=== PATIENT | female | born 1980 | race African-American/Black ===

== ENCOUNTER 2016-12-12 16:27 | Emergency (ER) | payer MEDICAID ==
[2014-05-24 12:15] VITALS: BMI 18.8
[~2016-12-12 16:27] MED LIST: ACETAMINOPHEN500 M1 PO; LANTUS SOL100 UNIT/1 SC; MYCELEX TROCHE10 MG PO; NOVOLOG100 U/M1 SC; NYSTATIN ORAL SU5 ML PO; PRINIVIL20 MG PO; REGLAN10 MG PO
== END 2016-12-12 17:58 | disposition home or self-care (01) ==
LOC: D.ER 16:27
DX: K04.7 Periapical abscess without sinus (principal); K02.9 Dental caries, unspecified; E87.5 Hyperkalemia; E83.39 Other disorders of phosphorus metabolism; E13.10 Other specified diabetes mellitus with ketoacidosis without coma; Z79.4 Long term (current) use of insulin; F17.200 Nicotine dependence, unspecified, uncomplicated

== ENCOUNTER 2017-01-20 13:33 | Emergency (ER) | payer MEDICAID ==
[2014-05-24 12:15] VITALS: BMI 18.8
== END 2017-01-20 15:25 | disposition home or self-care (01) ==
LOC: D.ER 13:33
DX: S63.501A Unspecified sprain of right wrist, initial encounter (principal); W19.XXXA Unspecified fall, initial encounter; Y93.89 Activity, other specified; Y92.89 Other specified places as the place of occurrence of the external cause; S63.502A Unspecified sprain of left wrist, initial encounter; S80.02XA Contusion of left knee, initial encounter; S80.01XA Contusion of right knee, initial encounter

== ENCOUNTER 2017-02-21 15:25 | Emergency (ER) | payer MEDICAID ==
[2014-05-24 12:15] VITALS: BMI 18.8
== END 2017-02-21 17:40 | disposition home or self-care (01) ==
LOC: D.ER 15:25
DX: L03.115 Cellulitis of right lower limb (principal); M25.561 Pain in right knee; F17.200 Nicotine dependence, unspecified, uncomplicated

== ENCOUNTER 2017-07-15 17:12 | Emergency (ER) | payer MEDICAID ==
[2014-05-24 12:15] VITALS: BMI 18.8
== END 2017-07-15 17:59 | disposition home or self-care (01) ==
LOC: D.ER 17:12
DX: L02.416 Cutaneous abscess of left lower limb (principal); E11.9 Type 2 diabetes mellitus without complications; F17.200 Nicotine dependence, unspecified, uncomplicated

== ENCOUNTER 2017-07-18 13:40 | Emergency (ER) | payer MEDICAID ==
[2014-05-24 12:15] VITALS: BMI 18.8
== END 2017-07-18 14:54 | disposition home or self-care (01) ==
LOC: D.ER 13:40
DX: L03.116 Cellulitis of left lower limb (principal)

== ENCOUNTER 2017-07-25 13:58 | Emergency (ER) | payer MEDICAID ==
[2014-05-24 12:15] VITALS: BMI 18.8
== END 2017-07-25 16:21 | disposition home or self-care (01) ==
LOC: D.ER 13:58
DX: L03.116 Cellulitis of left lower limb (principal)

== ENCOUNTER 2017-07-29 14:48 | Inpatient (IN) | payer MEDICAID ==
[~2017-07-29] VITALS: Ht 162.6 cm; Wt 67.1 kg
--- NOTE | ~2017-07-29 | HP ---
PATIENT: JAMES STAPLETON MEDICAL RECORD: [id number] ACCOUNT: [id number] LOCATION:[facility] ClaribelCV07 : 82 ADMISSION DATE: 07/29/17 HISTORY AND PHYSICAL EXAMINATION REASON FOR ADMISSION: Nausea and vomiting. HISTORY OF PRESENT ILLNESS: The patient is a 37-year-old black female who states that she has been an insulin-dependent diabetic since her teens. She developed some nausea and vomiting four days prior to admission. They had recently stopped her insulin as she had low blood sugar. She had been in the ER on several occasions over the last month because of an infection on the left anterior mckenzie and states she has been on antibiotics for that. She had intractable vomiting, so she came to the ED. She was found to be in DKA. A pH of 7.3, blood sugar in excess of 500. She is now being admitted to medicine unassigned call for ICU admission to control her diabetes and acidosis. PAST MEDICAL HISTORY: She was hospitalized in 2009, two episodes of DKA due to running out of her insulin, history of gastroesophageal reflux disease and delayed gastric emptying, gastroparesis, essential hypertension, several admissions for diabetic ketoacidosis, and blinding of right eye and poor vision in the left eye due to diabetic retinopathy. PAST SURGICAL HISTORY: She states she has had I&D of an abscess on buttocks in the past. ALLERGIES: None mentioned. SOCIAL HISTORY: She is not . She has no children. She moved to [place] several years ago. 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 CURRENT MEDICATIONS: Lantus 15 units subq at bedtime, Nexium 40 mg daily, Reglan 10 mg before meals, and lisinopril 20 mg p.o. daily. SOCIAL HISTORY: She is nonsmoker and nondrinker. Apparently has used cocaine in the remote past. FAMILY HISTORY: Positive for diabetes, colon cancer, DC, and stroke in primary relatives. REVIEW OF SYSTEMS: GENERAL: She has been fatigued without fever with general malaise for the last four days. HEENT: Chronic blindness. No recent otalgia, sore throat. RESPIRATORY: No SOB. No cough. CARDIAC: No chest pain, palpitations, or edema. GASTROINTESTINAL: She has had nausea with vomiting, but no diarrhea for the last 4 days. Admits to moderate abdominal pain. INTEGUMENT: No rash or itching. PSYCHIATRY: Denies depressed mood. PHYSICAL EXAMINATION: GENERAL: Alert black female who is in moderate distress due to nausea. VITAL SIGNS: Temperature is 98.7 Fahrenheit orally, pulse 110 and regular, respirations 16, blood pressure 145/95, O2 sat 100% on room air, weight was 160 HISTORY AND PHYSICAL [id number] JAMES STAPLETON pounds or 72.6 kilos, BMI 25.1. The patient is alert, mildly ill appearing. HEENT: Normocephalic. Eyes are clear. Mucous membranes are dry. NECK: No bruits or masses. CHEST: Clear without wheeze or rales. HEART: Tachycardic without murmur. ABDOMEN: Mildly obese, soft, nontender throughout. Bowel sounds are active. EXTREMITIES: No cyanosis, clubbing or edema. Left anterior mckenzie cellulolytic area approximately 6 inches x 2 inches in diameter covered with bandage. NEUROLOGIC: Oriented to person, place, and time. Cranial nerves are grossly intact. Gait was not tested. No localizing motor deficits were appreciated. PSYCHIATRIC: Denies depress mood. LABORATORY DATA: Blood sugar was over 500 and serum ketones were positive. Potassium is 4.2. Blood gas with a pH 7.31. ASSESSMENT: 1. Diabetic ketoacidosis due to noncompliance. 2. Gastroenteritis. 3. Left lower extremity cellulitis. 4. Diabetic retinopathy. 5. Essential hypertension. PLAN: Placed in the ICU on IV insulin drip, normal saline fluid challenge. Wound culture and surgical consult for venous access completed and evaluation of left lower extremity wound. Empiric Rocephin. Further workup pending clinical course. TRANSINT:[id number] Voice Confirmation ID: [id number] DOCUMENT ID: [id number] TRAVIS PEREYRA MD at 1320 CC: [id number] DICTATION DATE: 07/29/172105 INSPECTOR PLATING: 07/29/17 2352 ADM IN [place] [address] [place] [address]
[2017-07-29 15:45] LABS: BASOPHILS 0.2 % (0-2); EOSINOPHILS 0 % (0-7); HEMATOCRIT 38.9 % (36.0-48.0); HEMOGLOBIN 12.6 g/dL (12-16); IMMATURE GRANULOCYTES 0.3 % (0-5); LYMPHOCYTES 18.9 % (15-50); MCH 26.9 pg (26.0-34.0); MCHC 32.4 g/dL (31.0-37.0); MCV 83.1 fL (80.0-100.0); MEAN PLATELET VOLUME 11.9 fL (7.4-10.4); MONOCYTES 3.4 % (2-11); NEUTROPHILS 77.2 % (40-80); RBC 4.68 10x6/uL (4.00-5.40); WBC 12.2 10x3/uL (4.8-10.8)
[2017-07-29 15:55] LABS: INR 1.09 (0.85-1.17); PROTIME 13.7 SECONDS (11.6-15.0)
[2017-07-29 15:56] LABS: PLATELET COUNT 375 10x3/uL (130-400)
[2017-07-29 16:03] LABS: KETONE - SERUM MODERATE mg/dL (NEGATIVE)
[2017-07-29 16:32] LABS: HCG URINE NEGATIVE (NEGATIVE)
[2017-07-29 16:34] LABS: APPEARANCE HAZY (CLEAR); BACTERIA MODERATE /hpf (NONE SEEN); BILIRUBIN NEGATIVE (NEGATIVE); COLOR STRAW (YELLOW); GLUCOSE 1000 mg/dL (NEGATIVE); KETONE LARGE mg/dL (NEGATIVE); NITRITE NEGATIVE (NEGATIVE); PROTEIN NEGATIVE (NEGATIVE); RED CELLS - URINE 0-5 /hpf (0-5); SPECIFIC GRAVITY 1.015 (1.005-1.020); UROBILINOGEN NORMAL (NORMAL)
[2017-07-29 16:38] LABS: ALBUMIN 3.8 g/dL (3.4-5.0); ALKALINE PHOSPHATASE 97 U/L (46-116); ALT (SGPT) 20 U/L (10-68); AMYLASE - SERUM 108 U/L (25-115); BILIRUBIN - TOTAL 0.78 mg/dL (0.2-1.3); CALCIUM 9.7 mg/dL (8.5-10.1); CARBON DIOXIDE 14.2 mmol/L (21.0-32.0); CHLORIDE - SERUM 91 mmol/L (98-107); CREATINE KINASE 143 UL (21-215); CREATININE - SERUM 1.8 mg/dL (0.6-1.3); LIPASE 124 U/L (73-393); POTASSIUM - SERUM 5.5 mmol/L (3.5-5.1); PROTEIN - SERUM 8.2 g/dL (6.4-8.2); SODIUM 134 mmol/L (136-145); UREA NITROGEN 45 mg/dL (7-18); eGFR NON AFRICAN AMERICAN 34 mL/min (90-120)
[2017-07-29 16:40] LABS: UDS - AMPHET NEGATIVE QUAL (NEGATIVE); UDS - BARB NEGATIVE QUAL (NEGATIVE); UDS - BENZO NEGATIVE QUAL (NEGATIVE); UDS - COCAINE NEGATIVE QUAL (NEGATIVE); UDS - OPIATE NEGATIVE QUAL (NEGATIVE); UDS - PCP NEGATIVE QUAL (NEGATIVE); UDS - THC NEGATIVE QUAL (NEGATIVE)
[2017-07-29 16:45] LABS: CALC OSMOLALITY 311 mosm/kg (275-300); TROPONIN-I < 0.017 ng/mL (0.000-0.060)
[2017-07-29 16:47] LABS: GLUCOSE 674 mg/dL (74-106)
[2017-07-29 20:27] LABS: ANION GAP 29.5 mmol/L (8-16); CARBON DIOXIDE 15.7 mmol/L (21.0-32.0); CREATININE - SERUM 1.9 mg/dL (0.6-1.3); MAGNESIUM - SERUM 2.8 mg/dL (1.8-2.4)
[2017-07-29 20:28] LABS: POTASSIUM - SERUM 4.2 mmol/L (3.5-5.1)
[2017-07-29 21:25] VITALS: BP 89/57; BMI 25.5
[2017-07-29] MEDS ORDERED: HYDROCODON-ACE1 EAC7 PO (21:45)
[2017-07-29] MEDS ORDERED: NEURONTIN 300300 MG (21:46)
[2017-07-29 22:00] VITALS: BP 106/87
[2017-07-29 23:00] VITALS: BP 118/75
[2017-07-30] VITALS (24 sets, daily range): BP systolic 82–167; BP diastolic 49–92; Ht 162.6 cm; Wt 67.1 kg
[2017-07-30 00:40] LABS: ANION GAP 14.2 mmol/L (8-16); CALCIUM 9.2 mg/dL (8.5-10.1); CREATININE - SERUM 1.8 mg/dL (0.6-1.3); MAGNESIUM - SERUM 2.8 mg/dL (1.8-2.4); POTASSIUM - SERUM 4.3 mmol/L (3.5-5.1)
[2017-07-30 00:43] LABS: CARBON DIOXIDE 26.1 mmol/L (21.0-32.0)
[2017-07-30 05:09] LABS: ANION GAP 16.2 mmol/L (8-16); CALCIUM 9.1 mg/dL (8.5-10.1); CREATININE - SERUM 1.5 mg/dL (0.6-1.3); MAGNESIUM - SERUM 2.7 mg/dL (1.8-2.4); POTASSIUM - SERUM 4.2 mmol/L (3.5-5.1)
[2017-07-30 08:15] LABS: BASOPHILS 0.3 % (0-2); EOSINOPHILS 0.5 % (0-7); HEMATOCRIT 37.1 % (36.0-48.0); HEMOGLOBIN 12.3 g/dL (12-16); IMMATURE GRANULOCYTES 0.1 % (0-5); LYMPHOCYTES 34.5 % (15-50); MCH 26.9 pg (26.0-34.0); MCHC 33.2 g/dL (31.0-37.0); MCV 81.2 fL (80.0-100.0); MEAN PLATELET VOLUME 10.9 fL (7.4-10.4); MONOCYTES 7.5 % (2-11); NEUTROPHILS 57.1 % (40-80); PLATELET COUNT 372 10x3/uL (130-400); RBC 4.57 10x6/uL (4.00-5.40); RDW 13.3 % (11.5-14.5); WBC 8.8 10x3/uL (4.8-10.8)
[2017-07-30 08:42] LABS: CALC OSMOLALITY 291 mosm/kg (275-300); CALCIUM 9.3 mg/dL (8.5-10.1); CARBON DIOXIDE 23.7 mmol/L (21.0-32.0); CHLORIDE - SERUM 106 mmol/L (98-107); CREATININE - SERUM 1.5 mg/dL (0.6-1.3); GLUCOSE 142 mg/dL (74-106); POTASSIUM - SERUM 4.1 mmol/L (3.5-5.1); SODIUM 142 mmol/L (136-145); UREA NITROGEN 33 mg/dL (7-18); eGFR NON AFRICAN AMERICAN 42 mL/min (90-120)
[2017-07-30 08:59] LABS: KETONE - SERUM SMALL mg/dL (NEGATIVE)
[2017-07-31] VITALS (11 sets, daily range): BP systolic 92–118; BP diastolic 53–79
[2017-07-31 05:21] LABS: ANION GAP 12.4 mmol/L (8-16); CALCIUM 7.9 mg/dL (8.5-10.1); CARBON DIOXIDE 26.2 mmol/L (21.0-32.0); POTASSIUM - SERUM 3.6 mmol/L (3.5-5.1)
[2017-07-31] MEDS ORDERED: BACTRIM DS TABL1 TAB PO (09:08)
== END 2017-07-31 13:00 | disposition home or self-care (01) | DRG 638 ==
LOC: D.ER 14:48 → D.CVICU 18:13 → D.ICU 18:13 → D.CVICU 18:29
PROVIDERS: Emergency Medicine; Family Medicine
PROC: 05HB33Z Insertion of Infusion Device into Right Basilic Vein, Percutaneous Approach (ICD-10-PCS; principal; 2017-07-30)
PROC: B54MZZA Ultrasonography of Right Upper Extremity Veins, Guidance (ICD-10-PCS; 2017-07-30)
DX: E10.10 Type 1 diabetes mellitus with ketoacidosis without coma (principal); L03.116 Cellulitis of left lower limb; E11.43 Type 2 diabetes mellitus with diabetic autonomic (poly)neuropathy; E11.319 Type 2 diabetes mellitus with unspecified diabetic retinopathy without macular edema; K31.84 Gastroparesis; Z79.4 Long term (current) use of insulin; K52.9 Noninfective gastroenteritis and colitis, unspecified; I10 Essential (primary) hypertension; Z91.14 Patient's other noncompliance with medication regimen

== ENCOUNTER 2017-11-01 11:11 | Emergency (ER) | payer MEDICAID ==
[2017-07-30 11:57] VITALS: BMI 25.4
[~2017-11-01 11:11] MED LIST changes: +BACTRIM DS TABL1 TAB PO; +HYDROCODON-ACE1 EAC7 PO; +NEURONTIN 300300 MG
== END 2017-11-01 12:48 | disposition home or self-care (01) ==
LOC: D.ER 11:11
DX: M25.512 Pain in left shoulder (principal); T14.8XXA Other injury of unspecified body region, initial encounter; W19.XXXA Unspecified fall, initial encounter; Y93.89 Activity, other specified; Y92.019 Unspecified place in single-family (private) house as the place of occurrence of the external cause; M54.2 Cervicalgia; M54.5 Low back pain

== ENCOUNTER 2017-11-09 14:05 | Emergency (ER) | payer MEDICAID ==
[2017-07-30 11:57] VITALS: BMI 25.4
[2017-11-09 15:08] LABS: BASOPHILS 0.3 % (0-2); EOSINOPHILS 2.7 % (0-7); IMMATURE GRANULOCYTES 0.2 % (0-5); LYMPHOCYTES 45.7 % (15-50); MCH 25.8 pg (26.0-34.0); MCHC 32.4 g/dL (31.0-37.0); MCV 79.8 fL (80.0-100.0); MEAN PLATELET VOLUME 10.7 fL (7.4-10.4); MONOCYTES 7.8 % (2-11); NEUTROPHILS 43.3 % (40-80); RBC 4.26 10x6/uL (4.00-5.40); RDW 14.7 % (11.5-14.5); WBC 5.9 10x3/uL (4.8-10.8)
[2017-11-09 15:10] LABS: PLATELET COUNT 285 10x3/uL (130-400)
[2017-11-09 15:46] LABS: ALBUMIN 3.6 g/dL (3.4-5.0); ANION GAP 14.2 mmol/L (8-16); BILIRUBIN - TOTAL 0.24 mg/dL (0.2-1.3); CALCIUM 9.1 mg/dL (8.5-10.1); CARBON DIOXIDE 27.2 mmol/L (21.0-32.0); POTASSIUM - SERUM 4.4 mmol/L (3.5-5.1); PROTEIN - SERUM 7.8 g/dL (6.4-8.2)
[2017-11-09 15:49] LABS: APPEARANCE HAZY (CLEAR); BILIRUBIN NEGATIVE (NEGATIVE); COLOR YELLOW (YELLOW); GLUCOSE 1000 mg/dL (NEGATIVE); KETONE NEGATIVE (NEGATIVE); NITRITE NEGATIVE (NEGATIVE); PROTEIN TRACE mg/dL (NEGATIVE); SPECIFIC GRAVITY 1.015 (1.005-1.020); UROBILINOGEN NORMAL (NORMAL)
[2017-11-09 15:50] LABS: RED CELLS - URINE OCC /hpf (0-5); WHITE CELLS - URINE 0-5 /hpf (0-5)
[2017-11-09 15:51] LABS: BACTERIA MANY /hpf (NONE SEEN)
[2017-11-09 15:52] LABS: HCG SERUM NEGATIVE (NEGATIVE)
== END 2017-11-09 17:00 | disposition home or self-care (01) ==
LOC: D.ER 14:05
PROVIDERS: Emergency Medicine; Physician Assistant
DX: R10.32 Left lower quadrant pain (principal); E11.9 Type 2 diabetes mellitus without complications; Z79.4 Long term (current) use of insulin; N39.0 Urinary tract infection, site not specified; F17.200 Nicotine dependence, unspecified, uncomplicated

== ENCOUNTER 2018-04-10 13:59 | Emergency (ER) | payer MEDICAID ==
[~2018-04-10] VITALS: Ht 162.6 cm; Wt 75.9 kg
[2018-04-10 14:03] VITALS: Ht 162.6 cm; Wt 75.9 kg
[2018-04-10] MEDS ORDERED: COMBIGAN OPHT DR5 ML EACH EYE (14:07)
[2018-04-10] MEDS ORDERED: NOVOLOG100 U/M1 SC (14:07)
[2018-04-10] MEDS ORDERED: ATROPINE TOPICAL (14:09)
[2018-04-10] MEDS ORDERED: BACTRIM DS TABL1 TAB PO (14:52)
[2018-04-10] MEDS ORDERED: ULTRAM50 MG PO (14:52)
[2018-04-10 15:08] VITALS: BP 146/93
== END 2018-04-10 15:09 | disposition home or self-care (01) ==
LOC: D.ER 13:59
DX: L02.415 Cutaneous abscess of right lower limb (principal); E11.9 Type 2 diabetes mellitus without complications; I10 Essential (primary) hypertension

== ENCOUNTER 2018-07-03 14:03 | Emergency (ER) | payer MEDICAID ==
[~2018-07-03] VITALS: Ht 162.6 cm; Wt 74.1 kg
[~2018-07-03 14:03] MED LIST changes: +ATROPINE TOPICAL; +COMBIGAN OPHT DR5 ML EACH EYE; +ULTRAM50 MG PO
[2018-07-03 14:06] VITALS: Ht 162.6 cm; Wt 74.1 kg
[2018-07-03] MEDS ORDERED: TORADOL10 MG PO (17:33)
[2018-07-03 18:30] VITALS: BP 169/86
== END 2018-07-03 18:30 | disposition home or self-care (01) ==
LOC: D.ER 14:03
DX: S40.012A Contusion of left shoulder, initial encounter (principal); S60.212A Contusion of left wrist, initial encounter; X58.XXXA Exposure to other specified factors, initial encounter; Y93.9 Activity, unspecified; Y92.019 Unspecified place in single-family (private) house as the place of occurrence of the external cause; E11.9 Type 2 diabetes mellitus without complications; I10 Essential (primary) hypertension; F17.200 Nicotine dependence, unspecified, uncomplicated

== ENCOUNTER 2018-08-16 13:22 | Emergency (ER) | payer MEDICAID ==
[~2018-08-16] VITALS: Ht 162.6 cm; Wt 70.5 kg
[~2018-08-16 13:22] MED LIST changes: +TORADOL10 MG PO
[2018-08-16 13:24] VITALS: Ht 162.6 cm; Wt 70.5 kg
[2018-08-16 15:26] LABS: BASOPHILS 0.1 % (0-2); EOSINOPHILS 0 % (0-7); HEMATOCRIT 36.5 % (36.0-48.0); HEMOGLOBIN 12.6 g/dL (12-16); IMMATURE GRANULOCYTES 0.3 % (0-5); LYMPHOCYTES 14.3 % (15-50); MCH 26.4 pg (26.0-34.0); MCHC 34.5 g/dL (31.0-37.0); MCV 76.5 fL (80.0-100.0); MONOCYTES 5.7 % (2-11); NEUTROPHILS 79.6 % (40-80); RBC 4.77 10x6/uL (4.00-5.40); RDW 14.3 % (11.5-14.5); WBC 14.5 10x3/uL (4.8-10.8)
[2018-08-16 15:27] LABS: PLATELET COUNT 196 10x3/uL (130-400)
[2018-08-16 15:42] LABS: ALKALINE PHOSPHATASE 118 U/L (46-116); ALT (SGPT) 20 U/L (10-68); BILIRUBIN - TOTAL 0.86 mg/dL (0.2-1.3); CALC OSMOLALITY 304 mosm/kg (275-300); CALCIUM 9.8 mg/dL (8.5-10.1); CARBON DIOXIDE 16.9 mmol/L (21.0-32.0); CHLORIDE - SERUM 98 mmol/L (98-107); CREATININE - SERUM 1.9 mg/dL (0.6-1.3); MAGNESIUM - SERUM 2.9 mg/dL (1.8-2.4); POTASSIUM - SERUM 4.3 mmol/L (3.5-5.1); PROTEIN - SERUM 8.6 g/dL (6.4-8.2); SODIUM 137 mmol/L (136-145); UREA NITROGEN 43 mg/dL (7-18); eGFR NON AFRICAN AMERICAN 31 mL/min (90-120)
[2018-08-16 15:45] LABS: GLUCOSE 452 mg/dL (74-106)
[2018-08-16 15:50] LABS: KETONE - SERUM MODERATE mg/dL (NEGATIVE)
[2018-08-16] MEDS ORDERED: ZOFRAN ODT4 MG/UDTAB PO (15:56)
[2018-08-16 16:29] VITALS: BP 137/73
[2018-08-16 17:03] LABS: APPEARANCE CLEAR (CLEAR); COLOR YELLOW (YELLOW); GLUCOSE 1000 mg/dL (NEGATIVE); KETONE MODERATE mg/dL (NEGATIVE); NITRITE NEGATIVE (NEGATIVE); PROTEIN TRACE mg/dL (NEGATIVE); SPECIFIC GRAVITY 1.015 (1.005-1.020)
[2018-08-16 17:12] LABS: BILIRUBIN NEGATIVE (NEGATIVE); UROBILINOGEN NORMAL (NORMAL)
[2018-08-16 17:13] LABS: RED CELLS - URINE 0-5 /hpf (0-5); WHITE CELLS - URINE OCC /hpf (0-5)
[2018-08-16 17:22] LABS: BACTERIA FEW /hpf (NONE SEEN); EPITHELIAL CELLS 0-5 /hpf (0-5)
== END 2018-08-16 16:20 | disposition home or self-care (01) ==
LOC: D.ER 13:22
PROVIDERS: Emergency Medicine
DX: E11.65 Type 2 diabetes mellitus with hyperglycemia (principal); Z79.4 Long term (current) use of insulin

== ENCOUNTER 2018-12-27 19:27 | Emergency (ER) | payer MEDICAID ==
[~2018-12-27] VITALS: Ht 162.6 cm; Wt 79.8 kg
[~2018-12-27 19:27] MED LIST changes: +ZOFRAN ODT4 MG/UDTAB PO
[2018-12-27 19:28] VITALS: Ht 162.6 cm; Wt 79.8 kg
[2018-12-27 20:33] LABS: BASOPHILS 0.2 % (0-2); EOSINOPHILS 1.2 % (0-7); HEMATOCRIT 34.7 % (36.0-48.0); HEMOGLOBIN 11.6 g/dL (12-16); IMMATURE GRANULOCYTES 0.2 % (0-5); MCHC 33.4 g/dL (31.0-37.0); MCV 77.8 fL (80.0-100.0); MEAN PLATELET VOLUME 10.2 fL (7.4-10.4); MONOCYTES 6.3 % (2-11); NEUTROPHILS 64.1 % (40-80); RBC 4.46 10x6/uL (4.00-5.40); RDW 14.4 % (11.5-14.5); WBC 8.3 10x3/uL (4.8-10.8)
[2018-12-27 20:34] LABS: PLATELET COUNT 280 10x3/uL (130-400)
[2018-12-27 20:49] LABS: ALBUMIN 3.5 g/dL (3.4-5.0); ANION GAP 13.6 mmol/L (8-16); BILIRUBIN - TOTAL 0.27 mg/dL (0.2-1.3); CALCIUM 9.2 mg/dL (8.5-10.1); CARBON DIOXIDE 25.7 mmol/L (21.0-32.0); POTASSIUM - SERUM 5.3 mmol/L (3.5-5.1); PROTEIN - SERUM 7.3 g/dL (6.4-8.2)
[2018-12-27] MEDS ORDERED: DIAMOX250 MG PO (21:51)
[2018-12-27] MEDS ORDERED: HYDROCODON-ACE1 EAC7 PO (21:53)
[2018-12-27 22:21] VITALS: BP 149/89
== END 2018-12-27 22:21 | disposition home or self-care (01) ==
LOC: D.ER 19:27
PROVIDERS: Family Medicine
DX: H40.9 Unspecified glaucoma (principal)

== ENCOUNTER 2019-02-21 18:43 | Inpatient (IN) | payer MEDICAID ==
[~2019-02-21] VITALS: Ht 162.6 cm; Wt 78.0 kg
[~2019-02-21 18:43] MED LIST changes: +DIAMOX250 MG PO; -NEURONTIN 300300 MG; +NEURONTIN 300300 MG PO
--- NOTE | 2019-02-21 19:26 | NUR ---
report given to sumanth matamoros using sbar
[2019-02-21 21:46] LABS: BASOPHILS 0 % (0-2); EOSINOPHILS 0 % (0-7); HEMOGLOBIN 11.3 g/dL (12-16); IMMATURE GRANULOCYTES 0.2 % (0-5); LYMPHOCYTES 7.1 % (15-50); MCH 26.4 pg (26.0-34.0); MCHC 33.2 g/dL (31.0-37.0); MCV 79.4 fL (80.0-100.0); MEAN PLATELET VOLUME 11.3 fL (7.4-10.4); MONOCYTES 3.1 % (2-11); NEUTROPHILS 89.6 % (40-80); PLATELET COUNT 326 10x3/uL (130-400); RBC 4.28 10x6/uL (4.00-5.40); RDW 15.5 % (11.5-14.5); WBC 17.7 10x3/uL (4.8-10.8)
[2019-02-21 22:02] LABS: KETONE - SERUM MODERATE mg/dL (NEGATIVE)
[2019-02-21 22:08] LABS: ALBUMIN 3.9 g/dL (3.4-5.0); ALKALINE PHOSPHATASE 102 U/L (46-116); ALT (SGPT) 11 U/L (10-68); BILIRUBIN - TOTAL 0.57 mg/dL (0.2-1.3); CALC OSMOLALITY 311 mosm/kg (275-300); CALCIUM 9.1 mg/dL (8.5-10.1); CARBON DIOXIDE 20.3 mmol/L (21.0-32.0); CHLORIDE - SERUM 94 mmol/L (98-107); CREATININE - SERUM 1.8 mg/dL (0.6-1.3); MAGNESIUM - SERUM 2.4 mg/dL (1.8-2.4); PHOSPHOROUS 5.3 mg/dL (2.5-4.9); POTASSIUM - SERUM 5.5 mmol/L (3.5-5.1); PROTEIN - SERUM 8.2 g/dL (6.4-8.2); SODIUM 134 mmol/L (136-145); UREA NITROGEN 44 mg/dL (7-18); eGFR NON AFRICAN AMERICAN 33 mL/min (90-120)
[2019-02-21 22:12] LABS: GLUCOSE 698 mg/dL (74-106)
[2019-02-21 23:01] LABS: HCG SERUM NEGATIVE (NEGATIVE)
[2019-02-21 23:02] LABS: APPEARANCE CLEAR (CLEAR); COLOR YELLOW (YELLOW); GLUCOSE 1000 mg/dL (NEGATIVE); KETONE MODERATE mg/dL (NEGATIVE); NITRITE NEGATIVE (NEGATIVE); PROTEIN NEGATIVE (NEGATIVE)
[2019-02-21 23:03] LABS: BILIRUBIN NEGATIVE (NEGATIVE); UROBILINOGEN NORMAL (NORMAL)
[2019-02-21 23:30] VITALS: BP 165/95
[2019-02-21 23:35] VITALS: BP 165/95
--- NOTE | 2019-02-21 23:35 | NUR ---
2321- TO CT ON STRETCHER.
--- NOTE | 2019-02-21 23:35 | NUR ---
PT RECIEVED VIA STRETCHER, ASSESSMENT COMPLETED, R CVL INTACT WITH INSULIN GTT INFUSING, FLORES TO BSD WITH CLEAR YELLOW URINE
[2019-02-22] VITALS (30 sets, daily range): BP systolic 102–166; BP diastolic 56–98; Ht 162.6 cm; Wt 78.0 kg
[2019-02-22 00:08] LABS: ANION GAP 28.9 mmol/L (8-16); CALCIUM 9.1 mg/dL (8.5-10.1); CARBON DIOXIDE 17.7 mmol/L (21.0-32.0); CREATININE - SERUM 1.9 mg/dL (0.6-1.3); MAGNESIUM - SERUM 2.3 mg/dL (1.8-2.4); POTASSIUM - SERUM 5.6 mmol/L (3.5-5.1)
--- NOTE | 2019-02-22 01:30 | NUR ---
PT AROUSES EASILY, FOLLOWS COMMANDS,NO DISTRESS
--- NOTE | 2019-02-22 03:30 | NUR ---
PT SLEEPING, FSBS 155, ADJUSTED INSULIN GTT PER PROTOCOL
[2019-02-22 05:21] LABS: CALCIUM 8.4 mg/dL (8.5-10.1); MAGNESIUM - SERUM 2.2 mg/dL (1.8-2.4)
[2019-02-22 05:35] LABS: ANION GAP 12.4 mmol/L (8-16); CARBON DIOXIDE 28.4 mmol/L (21.0-32.0); CREATININE - SERUM 1.3 mg/dL (0.6-1.3); POTASSIUM - SERUM 3.8 mmol/L (3.5-5.1)
--- NOTE | 2019-02-22 06:28 | NUR ---
PT SLEEPING WITH NO DISTRESS, INSULIN GTT INFUSING VIA RIGHT CVL
--- NOTE | 2019-02-22 07:00 | NUR ---
BEDSIDE SHIFT REPORT AND SHIFT ASSESSMENT COMPLETE. R SUBCLAVIAN CVL, DRESSING CDI. FLORES CATHETER PUTTING OUT YELLOW, CLEAR URINE. PT STATES PAIN 8/10, WILL ADMINISTER PAIN MEDS PER MAR. VSS. CALL LIGHT IN REACH.
--- NOTE | 2019-02-22 09:00 | NUR ---
MEDS GIVEN PER MAR. VSS, NO NEEDS AT THIS TIME. WILL CONTINUE TO MONITOR.
--- NOTE | 2019-02-22 11:39 | NUR ---
Pt transported to CVICU room CV06. On 2ml insulin drip and D5+20KCL AT 100ML/HR. On room air. vss. will continue to monitor.
[2019-02-22 11:56] LABS: ANION GAP 10.2 mmol/L (8-16); CALCIUM 8.4 mg/dL (8.5-10.1); CARBON DIOXIDE 29.8 mmol/L (21.0-32.0); CREATININE - SERUM 1.1 mg/dL (0.6-1.3); MAGNESIUM - SERUM 2.3 mg/dL (1.8-2.4)
--- NOTE | 2019-02-22 13:23 | NUR ---
SPOKE WITH DR. INGRAM REGARDING ANION GAP BEING CLOSED. ORDERED TO DISCONTINUE INSULIN DRIP. ORDERED HUMALOG INTERMEDIATE SCALE ACHS, DISCONTINUED D5 1/2 NS WITH 20KCL. ORDERED 1/2 AT 125ML/HR. RESTARTED LANTUS PER DR. INGRAM.
--- NOTE | 2019-02-22 17:04 | NUR ---
CHG BATH GIVEN AT THIS TIME. PT TOLERATED WELL. R-SUBCLAVIAN CVL CHANGED PER PROTOCOL. STERILE TECHNIQUE USED. COMPLETE LINEN CHANGE PROVIDED. FLORES CARE PROVIDED. PT RESTING COMFORTABLY IN BED. PT'S MOTHER AT BEDSIDE. NO FURTHER NEEDS. WILL CONTINUE TO MONITOR.
--- NOTE | 2019-02-22 17:23 | NUR ---
Dinner tray delivered. Pt not ready to eat at this time. Tray left in room.
[2019-02-22 17:33] LABS: ANION GAP 20.7 mmol/L (8-16); CALCIUM 8.3 mg/dL (8.5-10.1); CREATININE - SERUM 1.1 mg/dL (0.6-1.3); POTASSIUM - SERUM 4.4 mmol/L (3.5-5.1)
[2019-02-22 17:35] LABS: CARBON DIOXIDE 19.7 mmol/L (21.0-32.0)
--- NOTE | 2019-02-22 17:52 | NUR ---
DR. INGRAM NOTIFIED OF INCREASE IN ANION GAP SINCE LAST LAB CHECK. ORDERED SERUM KEYTONE CHECK. IF POSITIVE, RE-START INSULIN DRIP.
--- NOTE | 2019-02-22 18:08 | NUR ---
DR. INGRAM NOTIFIED THAT THERE IS SMALL AMOUNT OF KEYTONES IN SERUM. ORDERED NOT TO START INSULIN DRIP AT THIS TIME. WILL CONTINUE TO MONITOR AND TREAT PER ORDERS.
--- NOTE | 2019-02-22 20:38 | NUR ---
PT RECEIVED WITH EYES CLOSED AND CHEST RISING. NO S/S OF DISTRESS. EASILY AWOKEN TO VERBAL STIMULI. VSS. CALL LIGHT IN REACH. PT STATES PAIN 8/10 UPON REASSESSMENT OF MORPHINE ADMINISTRATION AT 1833. PAGED PHSYCIAN ENVIRONMENTAL CONFLICT MANAGER, CALLIE SMITH RETURNED CALL. REPORTED THERE WERE NO LABS ORDERED BEYOND SHIFT CHANGE. RECEIVED ORDERS FOR BMP AT 0000, BMP, CBC, MAG, PHOS AT 0600, CHANGE BLOOD SUGAR TO Q4H, SERUM KETONE AT 0600. CALL IN ANION GAP >20. FSBS 2000 156 WITH 4UNITS GIVEN AND FIRST DOSE LANTUS 20UNITS GIVEN. MOTHER AT BEDSIDE. WILL CONTINUE TO OBSERVE.
--- NOTE | 2019-02-22 22:40 | NUR ---
MOTHER LEFT UNIT. PT RESTING. NO S/S OF DISTRESS. CALL LIGHT IN REACH. WILL CONTINUE TO OBSERVE.
[2019-02-23] VITALS (14 sets, daily range): BP systolic 98–133; BP diastolic 59–81
--- NOTE | 2019-02-23 00:44 | NUR ---
BS CHECKED 170 W/4UNITS HUMALOG. DIET LEMONLIME SODA AND APPLESAUCE GIVEN. NO OTHER NEEDS MADE KNOWN. PT HAS BEEN REASSESSED, SEE FLOW SHEET. CALL LIGHT IN REACH. WILL CONTINUE TO OBSERVE.
[2019-02-23 01:19] LABS: ANION GAP 10.4 mmol/L (8-16); CALCIUM 7.5 mg/dL (8.5-10.1); CREATININE - SERUM 0.9 mg/dL (0.6-1.3); POTASSIUM - SERUM 3.9 mmol/L (3.5-5.1)
[2019-02-23 01:27] LABS: CARBON DIOXIDE 27.5 mmol/L (21.0-32.0)
--- NOTE | 2019-02-23 03:31 | NUR ---
REASSESSMENT COMPLETED, SEE FLOW SHEET. NO NEEDS MADE KNOWN. CALL LIGHT IN REACH. WILL CONTINUE TO OBSERVE.
[2019-02-23 05:59] LABS: BASOPHILS 0.2 % (0-2); EOSINOPHILS 0.6 % (0-7); HEMATOCRIT 29.9 % (36.0-48.0); HEMOGLOBIN 9.9 g/dL (12-16); IMMATURE GRANULOCYTES 0.2 % (0-5); LYMPHOCYTES 29.6 % (15-50); MCH 25.8 pg (26.0-34.0); MCHC 33.1 g/dL (31.0-37.0); MCV 78.1 fL (80.0-100.0); MEAN PLATELET VOLUME 10.4 fL (7.4-10.4); MONOCYTES 5.7 % (2-11); NEUTROPHILS 63.7 % (40-80); PLATELET COUNT 269 10x3/uL (130-400); RBC 3.83 10x6/uL (4.00-5.40); RDW 15.5 % (11.5-14.5)
[2019-02-23 06:06] LABS: WBC 10.6 10x3/uL (4.8-10.8)
[2019-02-23 06:15] LABS: CALC OSMOLALITY 283 mosm/kg (275-300); CALCIUM 7.7 mg/dL (8.5-10.1); CARBON DIOXIDE 28.1 mmol/L (21.0-32.0); CHLORIDE - SERUM 108 mmol/L (98-107); CREATININE - SERUM 0.9 mg/dL (0.6-1.3); POTASSIUM - SERUM 3.6 mmol/L (3.5-5.1); SODIUM 142 mmol/L (136-145); UREA NITROGEN 15 mg/dL (7-18); eGFR NON AFRICAN AMERICAN 75 mL/min (90-120)
[2019-02-23 06:16] LABS: GLUCOSE 105 mg/dL (74-106); PHOSPHOROUS 2.4 mg/dL (2.5-4.9)
[2019-02-23 06:32] LABS: KETONE - SERUM NEGATIVE (NEGATIVE)
--- NOTE | 2019-02-23 09:22 | NUR ---
0700 REPORT RECIEVED, PT AAOX4, NORMAL SINUS, RIGHT SUBCLAVIAN CVL IN PLACE, DRESSING CDI, FLORES IN PLACE, BLINDESS IN BOTH EYES, MEASURED 5MM BILAT WITH SULGGISH REACTION. 0900 PT LAYING IN BED, AAOX4, WILL CONTINUE TO MONITOR
--- NOTE | 2019-02-23 12:26 | NUR ---
FSBS 67, LUNCH TRAY AND JUICE SERVED, RECHECKED FSBS 97
--- NOTE | 2019-02-23 14:22 | NUR ---
PATIENT ARRIVED TOT HE FLOOR VIA BED WITH ICU STAFF. BED IS IN LOW POSITION CALL LIGHT IS IN REACH. CALL LIGHT MODIFIED FOR PATIENTS NEEDS. RIGHT CVL DRSG INTACT. FLORES TO BEDSIDE GRAVITY. PATIENT DENIES ANY NEEDS OR PAIN AT THIS TIME. WILL CONTINUE TO MONITOR.
--- NOTE | 2019-02-23 19:26 | NUR ---
EVENING ROUNDS MADE. PT LAYING IN BED RESTING. DENIES PAIN AT THIS TIME. PT BLIND. RESTED HAND ON PT SHOULDER TO LET HER KNOW MY PRESENCE DUE TO BLINDNESS. PT STATED NO CONCERNS AT THIS TIME. INFORMED PT I WOULD BE BACK TO CHECK ON HER BS IN A FEW MINUTES. NO FURTHER CONCERNS. FALL PRECAUTIONS IN PLACE. BED LOWERED AND LOCKED. CL IN REACH. WILL CTM.
--- NOTE | 2019-02-23 19:27 | NUR ---
FAMILY AT BEDSIDE AT THIS TIME.
--- NOTE | 2019-02-23 21:13 | NUR ---
VITALS STABLE. PT C/O PAIN IN STOMACH AND BACK OF A 8/10 ON A 10 POINT PAIN SCALE. MORPHINE GIVEN TO R CVL. DRSG C/D/I. 0.45 NS @ 125, PATENT. FAMILY AT BEDSIDE. BS 93, NO TREATMENT NEEDED. WILL CTM.
[2019-02-24] VITALS: BP 139/76
[2019-02-24 04:30] VITALS: BP 150/87
--- NOTE | 2019-02-24 06:09 | NUR ---
I have reviewed this patient and I concur with the Shift Assessment completed by the Licensed Practical Nurse today this shift.
[2019-02-24 07:50] VITALS: BP 127/79
--- NOTE | 2019-02-24 10:13 | NUR ---
PATIENT IS ALERT AND ORIENTED AND STATES THAT HER PAIN HAS REDUCED AFTER BEING TREATED FOR PAIN ORDERED. ORDERS AKNOWLEDGED AND FOLLOWED REGARDING FLUIDS.
[2019-02-24 10:29] LABS: BASOPHILS 0.2 % (0-2); EOSINOPHILS 1.5 % (0-7); HEMATOCRIT 29.2 % (36.0-48.0); HEMOGLOBIN 9.7 g/dL (12-16); LYMPHOCYTES 37.8 % (15-50); MCH 26.2 pg (26.0-34.0); MCHC 33.2 g/dL (31.0-37.0); MCV 78.9 fL (80.0-100.0); MEAN PLATELET VOLUME 11.2 fL (7.4-10.4); MONOCYTES 9.5 % (2-11); PLATELET COUNT 258 10x3/uL (130-400); RDW 15.3 % (11.5-14.5); WBC 5.3 10x3/uL (4.8-10.8)
[2019-02-24 10:58] LABS: CALC OSMOLALITY 278 mosm/kg (275-300); CALCIUM 7.6 mg/dL (8.5-10.1); CARBON DIOXIDE 25.2 mmol/L (21.0-32.0); CHLORIDE - SERUM 105 mmol/L (98-107); CREATININE - SERUM 0.7 mg/dL (0.6-1.3); GLUCOSE 134 mg/dL (74-106); POTASSIUM - SERUM 3.5 mmol/L (3.5-5.1); SODIUM 139 mmol/L (136-145); eGFR NON AFRICAN AMERICAN > 90 mL/min (90-120)
[2019-02-24 10:59] LABS: UREA NITROGEN 9 mg/dL (7-18)
--- NOTE | 2019-02-24 12:06 | NUR ---
PATIENT IS RESTING QUIETLY AT THIS TIME. SHE DENIES ANY NEEDS AT THIS TIME.
[2019-02-24 12:20] VITALS: BP 132/84
--- NOTE | 2019-02-24 12:45 | NUR ---
Nutrition Follow-up: Pt reports appetite improving; ate part of breakfast this AM. No N/V. Diet: Diabetic BM: 02/21 No new wt Labs noted: Glu 134, Ca 7.6 Meds noted: Humalog, Lantus, Neutraphos, NS 0.45% @ 75 mL/hr Rec continue current diet as tolerated. RD following.
--- NOTE | 2019-02-24 13:41 | MORECARE ---
CASE MANAGEMENT DISCHARGE SUMMARY PATIENT: JAMES STAPLETON UNIT: [id number] ADM DATE: 02/21/19 AGE: 38 : 81 SEX: F ROOM/BED: D.2106 AUTHOR: PAPA HAN PHYSICIAN: REFERRING PHYSICIAN: MARIA G INGRAM MD DATE OF SERVICE: 02/24/19 Discharge Plan Patient Name: JAMES STAPLETON Facility: [facility]:[place] : 1980 Planned Disposition: Home Anticipated Discharge Date: 02/24/19 Discharge Date: Expected LOS: 3 Initial Reviewer: [email or web address] Initial Review Date: 02/24/2019 Generated: 02/24/19 2:41 pm Patient Name: JAMES STAPLETON Page 14083 at 1341 All edits/amendments must be made on the electronic document DICTATION DATE: 02/24/19 1341 MEDIA THEORIST AND AUTHOR OF: EUGENE 02/24/19 1341 RPT#: [id number] DC DATE: STATUS: ADM IN [facility] [address] [place] [address] END OF REPORT
--- NOTE | 2019-02-24 13:49 | MORECARE ---
CASE MANAGEMENT DISCHARGE SUMMARY PATIENT: JAMES STAPLETON UNIT: [id number] ADM DATE: 02/21/19 AGE: 38 : 81 SEX: F ROOM/BED: D.2106 AUTHOR: PAPA HAN PHYSICIAN: REFERRING PHYSICIAN: MARIA G INGRAM MD DATE OF SERVICE: 02/24/19 Discharge Plan Patient Name: JAMES STAPLETON Facility: [facility]:[place] : 1980 Planned Disposition: Home Anticipated Discharge Date: 02/24/19 Discharge Date: Expected LOS: 3 Initial Reviewer: [email or web address] Initial Review Date: 02/24/2019 Generated: 02/24/19 2:49 pm DCPIA - Discharge Planning Initial Assessment Updated by [email or web address]: Hugh Anderson on 02/24/19 1:47 pm * Is the patient Alert and Oriented? Yes * How many steps to enter\exit or inside your home? 14-O / 0-I * PCP [facility] [place] * Pharmacy [facility] * Preadmission Environment Home Alone * ADLs Independent * Equipment Cane Glucometer * Other Equipment TALKING GLUCOMETER NO MEDICAL EQUIPMENT PROVIDER PREFERENCE * List name and contact numbers for known caregivers / representatives who currently or will assist patient after discharge: DEE BEST, BOYFRIEND, * Verbal permission to speak to the caregivers and representatives has been obtained from the patient. N/A * Community resources currently utilized None * Please name any agencies selected above. PATIENT HAD DESIGN ENG SERVICES WITH [facility] THROUGH MEDICAID, THEY CANCELLED WHEN PT WENT TO STAY WITH FAMILY. PT WILL REAPPLY. * Additional services required to return to the preadmission environment? No * Can the patient safely return to the preadmission environment? Yes * Has this patient been hospitalized within the prior 30 days at any hospital? No Last DP export: 02/24/19 12:41 p Patient Name: JAMES STAPLETON Page 35512 at 1344 All edits/amendments must be made on the electronic document DICTATION DATE: 02/24/19 1340 TYPING BOOKKEEPER: EUGENE 02/24/19 134 RPT#: [id number] DC DATE: STATUS: ADM IN [facility] [address] [place] [address] END OF REPORT
--- NOTE | 2019-02-24 13:57 | MORECARE ---
CASE MANAGEMENT DISCHARGE SUMMARY PATIENT: JAMES STAPLETON UNIT: [id number] ADM DATE: 02/21/19 AGE: 38 : 81 SEX: F ROOM/BED: D.2106 AUTHOR: GUILLE,DOC PHYSICIAN: REFERRING PHYSICIAN: MARIA G INGRAM MD DATE OF SERVICE: 02/24/19 Discharge Plan Patient Name: JAMES STAPLETON Facility: [facility]:[place] : 1980 Planned Disposition: Home Anticipated Discharge Date: 02/24/19 Discharge Date: Expected LOS: 3 Initial Reviewer: [email or web address] Initial Review Date: 02/24/2019 Generated: 02/24/19 2:56 pm Comments DCP- Discharge Planning Updated by [email or web address]: Hugh Anderson on 02/24/19 12:[address] Patient Name: JAMES STAPLETON Admission Status: ER Accout number: [id number] Admission Date: 02-21-2019 : 1980 Admission Diagnosis: Attending: CARLEE INGRAM Current LOS: 3 Anticipated DC Date: 02-24-2019 Planned Disposition: Home Primary Insurance: MEDICAID [place] Discharge Planning Comments: CM MET WITH PT IN ROOM TO DISCUSS DISCHARGE PLANNING AND NEEDS. PT REPORTS LIVING AT HOME INDEPENDENTLY AND ALONE. PT IS BLIND AND HAS HER MOTHER STAYING WITH HER FOR NOW. PT DOES OCCAISIONALLY STAY WITH HER BOYFRIEND WHO HAS AN APARTMENT WITH NO STEPS TO GET TO IN THE SAME APARTMENT COMPLEX. PT HAS CANE AND TALKING GLUCOMTER WITH NO MEDICAL EQUIPMENT PROVIDER PREFERENCE. PT HAS AND NO OUTSIDE SERVICES ASSISTING IN THE HOME. CM DISCUSSED AVAILABILITY OF HOME HEALTH, REHAB SERVICES AND MEDICAL EQUIPMENT. PT DID HAVE PERSONAL CARE THROUGH MEDICAID WITH [facility], IT WAS CANCELLED AND PT PLANS TO REAPPLY. PT DENIES DISCHARGE NEEDS, REPORTS SHE WILL CALL A FRIEND OR WILL GET A CAB FOR DISCHARGE HOME TODAY. Music Promoter: Hugh Anderson DCPIA - Discharge Planning Initial Assessment Updated by [email or web address]: Hugh Anderson on 02/24/19 1:47 pm * Is the patient Alert and Oriented? Yes * How many steps to enter\exit or inside your home? 14-O / 0-I * PCP [facility] [place] * Pharmacy [facility] * Preadmission Environment Home Alone * ADLs Independent * Equipment Cane Glucometer * Other Equipment TALKING GLUCOMETER NO MEDICAL EQUIPMENT PROVIDER PREFERENCE * List name and contact numbers for known caregivers / representatives who currently or will assist patient after discharge: DEE BEST, BOYFRIEND, * Verbal permission to speak to the caregivers and representatives has been obtained from the patient. N/A * Community resources currently utilized None * Please name any agencies selected above. PATIENT HAD ADMINISTRATOR PESTICIDE SERVICES WITH [facility] THROUGH MEDICAID, THEY CANCELLED WHEN PT WENT TO STAY WITH FAMILY. PT WILL REAPPLY. * Additional services required to return to the preadmission environment? No * Can the patient safely return to the preadmission environment? Yes * Has this patient been hospitalized within the prior 30 days at any hospital? No Last DP export: 02/24/19 12:49 p Patient Name: JAMES STAPLETON Page 52315 at 1357 All edits/amendments must be made on the electronic document DICTATION DATE: 02/24/19 1356 COMPUTER NETWORK SPECIALIST: EUGENE 02/24/19 1356 RPT#: [id number] DC DATE: STATUS: ADM IN [facility] [address] [place] [address] END OF REPORT
--- NOTE | 2019-02-24 14:28 | NUR ---
REMOVED CVL AND THE TWO SUTURES AND APPLIED A CLEAN DRESSING OVER THE SITE. NO BLEEDING NOTED, PATIENT TOLERATED. CATHETER INTACT. HELD PRESSURE 3 MIN. DISCHARGE PAPERWORK READ THROUGH AND EDUCATION DONE, AND PATIENT SIGNED. FLORES CATHETER REMOVED AFTER DEFLATING THE STERLIE WATER BALLOON OF 9ML FLUID. PATIENT REPORTS THAT SHE COULD NOT FEEL IT COME OUT. DENIES ANY DISCOMFORT OR OTHER NEEDS. SHE IS GETTING DRESSED AN HER MOTHER WILL COME PICK HER UP WHEN SHE IS READY.SHE WILL LEAVE THE FLOOR VIA WHEELCHAIR. SHE IS GOING HOME WITH A FAMILY MEMBER. SHE HAS REMOVED ALL HER PERSONAL BELONGINGS FROM THE ROOM.
== END 2019-02-24 15:47 | disposition home or self-care (01) | DRG 639 ==
LOC: D.ER 18:43 → D.ICU 22:43 → D.M2 22:43 → D.CVICU 02-22 11:34 → D.M2 02-23 12:55
PROVIDERS: Emergency Medicine; Family Medicine; ADMIT Emergency Medicine; ATTEND Emergency Medicine
DX: E10.10 Type 1 diabetes mellitus with ketoacidosis without coma (principal); Z79.4 Long term (current) use of insulin; H54.8 Legal blindness, as defined in USA; E10.22 Type 1 diabetes mellitus with diabetic chronic kidney disease; N18.9 Chronic kidney disease, unspecified; E87.5 Hyperkalemia; Z86.73 Personal history of transient ischemic attack (TIA), and cerebral infarction without residual deficits

== ENCOUNTER 2019-06-13 16:08 | Emergency (ER) | payer MEDICAID ==
[~2019-06-13] VITALS: Ht 162.6 cm; Wt 65.9 kg
[2019-06-13 16:13] VITALS: Ht 162.6 cm; Wt 65.9 kg
[2019-06-13] MEDS ORDERED: HYDROCODONE-A1 UDTA2 PO (20:05)
[2019-06-13 20:26] VITALS: BP 147/95
== END 2019-06-13 20:26 | disposition home or self-care (01) ==
LOC: D.ER 16:08
DX: S63.502A Unspecified sprain of left wrist, initial encounter (principal); W19.XXXA Unspecified fall, initial encounter; H40.89 Other specified glaucoma; Q13.2 Other congenital malformations of iris; S43.402A Unspecified sprain of left shoulder joint, initial encounter; H54.7 Unspecified visual loss; E11.9 Type 2 diabetes mellitus without complications; Z79.4 Long term (current) use of insulin; F41.8 Other specified anxiety disorders; M19.90 Unspecified osteoarthritis, unspecified site; G89.29 Other chronic pain; K21.9 Gastro-esophageal reflux disease without esophagitis; Z86.73 Personal history of transient ischemic attack (TIA), and cerebral infarction without residual deficits; H57.11 Ocular pain, right eye

== ENCOUNTER 2019-07-14 11:27 | Inpatient (IN) | payer MEDICAID ==
[~2019-07-14] VITALS: Ht 162.6 cm; Wt 80.9 kg
[2019-07-14] VITALS (11 sets, daily range): BP systolic 88–144; BP diastolic 60–87; BMI 31.8
--- NOTE | ~2019-07-14 | OP ---
PATIENT NAME: JAMES STAPLETON MEDICAL RECORD: [id number] :[birth year] LOCATION:D[facility] D.2308 ADMISSION DATE:07/14/19 SURGEON: AL NOGUEIRA MD DATE OF OPERATION: 07/15/2019 PREOPERATIVE DIAGNOSES: 1. Diabetic ketoacidosis. 2. Diabetes mellitus. 3. History of cerebrovascular accident. 4. Blindness. 5. Gastroesophageal reflux disease. POSTOPERATIVE DIAGNOSES: 1. Diabetic ketoacidosis. 2. Diabetes mellitus. 3. History of cerebrovascular accident. 4. Blindness. 5. Gastroesophageal reflux disease. PROCEDURE: Right subclavian vein triple-lumen central venous line placement. SURGEON: Al Nogueira MD REPORT OF PROCEDURE: The patient's right neck and chest were prepped and draped in sterile fashion. A 5 cc of 1% lidocaine with epinephrine was infused in the surrounding tissues. A needle was used to cannulate the left subclavian vein and a guidewire was advanced with ease. A dilator was placed over the wire, followed by the triple-lumen catheter. The catheter aspirated nonpulsatile dark blood and flushed easily in all 3 ports. This was sutured into place with 3-0 Prolenes and dressed appropriately. COMPLICATIONS: None. CONDITION: Stable. ANESTHESIA: Local. BLOOD LOSS: Minimal. Procedure done in the ICU at the bedside. TRANSINT:[id number] Voice Confirmation ID: [id number] DOCUMENT ID: [id number] AL NOGUEIRA MD CC: [id number] DICTATION DATE: 07/15/192134 BSA/AML COMPLIANCE OFFICER: 07/16/19 0002 ADM IN [facility] [address] [place] [address]
[~2019-07-14 11:27] MED LIST changes: +HYDROCODONE-A1 UDTA2 PO
--- NOTE | 2019-07-14 12:00 | NUR ---
AFTER MULTIPLE ATTEMPTS, IV SITED RAC VIA US. PT LAMIN WELL. LABS DRAWN FROM SITE , LABELED AT BSAND SENT TOLAB
--- NOTE | 2019-07-14 12:20 | NUR ---
FSBS= 536 MG/DL
[2019-07-14 12:24] LABS: BASOPHILS 0.1 % (0-2); EOSINOPHILS 0 % (0-7); HEMATOCRIT 35.5 % (36.0-48.0); HEMOGLOBIN 11.8 g/dL (12-16); IMMATURE GRANULOCYTES 0.2 % (0-5); LYMPHOCYTES 13.7 % (15-50); MCH 26.2 pg (26.0-34.0); MCHC 33.2 g/dL (31.0-37.0); MCV 78.9 fL (80.0-100.0); MEAN PLATELET VOLUME 11.4 fL (7.4-10.4); MONOCYTES 4.6 % (2-11); NEUTROPHILS 81.4 % (40-80); RDW 13.8 % (11.5-14.5); WBC 14.3 10x3/uL (4.8-10.8)
[2019-07-14 12:26] LABS: KETONE - SERUM SMALL mg/dL (NEGATIVE)
[2019-07-14 12:37] LABS: ALBUMIN 3.6 g/dL (3.4-5.0); ALKALINE PHOSPHATASE 101 U/L (46-116); ALT (SGPT) 17 U/L (10-68); BILIRUBIN - TOTAL 0.55 mg/dL (0.2-1.3); CALC OSMOLALITY 309 mosm/kg (275-300); CALCIUM 9.2 mg/dL (8.5-10.1); CARBON DIOXIDE 19.8 mmol/L (21.0-32.0); CHLORIDE - SERUM 95 mmol/L (98-107); MAGNESIUM - SERUM 2.2 mg/dL (1.8-2.4); POTASSIUM - SERUM 4.4 mmol/L (3.5-5.1); PROTEIN - SERUM 7.9 g/dL (6.4-8.2); SODIUM 135 mmol/L (136-145); UREA NITROGEN 45 mg/dL (7-18); eGFR NON AFRICAN AMERICAN 29 mL/min (90-120)
[2019-07-14 12:38] LABS: GLUCOSE 598 mg/dL (74-106)
[2019-07-14 12:39] LABS: PLATELET COUNT 369 10x3/uL (130-400)
--- NOTE | 2019-07-14 13:05 | NUR ---
PT AWARE THAT URINE SAMPLE IS NEEDED FOR ORDERED LABS. SPECIMEN CUP PROVIDED. IV INFUSING ORDERED. CALL LIGHT IN REACH, WILL CONTINUE TO MONITOR.
--- NOTE | 2019-07-14 13:35 | NUR ---
FSBS= 374 MG/DL
[2019-07-14 14:15] LABS: APPEARANCE HAZY (CLEAR); BILIRUBIN NEGATIVE (NEGATIVE); COLOR YELLOW (YELLOW); GLUCOSE 100 mg/dL (NEGATIVE); KETONE MODERATE mg/dL (NEGATIVE); NITRITE NEGATIVE (NEGATIVE); PROTEIN TRACE mg/dL (NEGATIVE); SPECIFIC GRAVITY 1.015 (1.005-1.020); UROBILINOGEN NORMAL (NORMAL)
[2019-07-14 14:16] LABS: AMORPHOUS SEDIMENT <1+ /lpf (NONE SEEN); BACTERIA MODERATE /hpf (NEGATIVE); EPITHELIAL CELLS 0-5 /hpf (0-5); MUCUS <1+ /lpf (NONE SEEN); RED CELLS - URINE OCC /hpf (0-5); WHITE CELLS - URINE RARE /hpf (NEGATIVE)
--- NOTE | 2019-07-14 14:46 | NUR ---
RESTNG IN BED WITH EYES CLOSED AND SNORING RESP. AROUSES EASILY WHEN NAME CALLED. EXPL POC: VERB UNDER
--- NOTE | 2019-07-14 16:16 | MORECARE ---
CASE MANAGEMENT DISCHARGE SUMMARY PATIENT: JAMES STAPLETON UNIT: [id number] ADM DATE: 07/14/19 AGE: 39 : 82 SEX: F ROOM/BED: D.2239 AUTHOR: PAPA HAN PHYSICIAN: REFERRING PHYSICIAN: COURTNEY TEMPLETON MD DATE OF SERVICE: 07/14/19 Discharge Plan Patient Name: JAMES STAPLETON [facility] [facility] 1980 Planned Disposition: Anticipated Discharge Date: Discharge Date: Expected LOS: Initial Reviewer: [email or web address] Initial Review Date: 07/14/2019 Generated: 07/14/19 5:15 pm Patient Name: JAMES STAPLETON Page 70699 at 1616 All edits/amendments must be made on the electronic document DICTATION DATE: 07/14/191614 INSTRUCTOR PILOT: EUGENE 07/14/19 161 RPT#: [id number] DC DATE: STATUS: ADM IN [facility] [address] [place] [address] END OF REPORT
--- NOTE | 2019-07-14 16:35 | MORECARE ---
CASE MANAGEMENT DISCHARGE SUMMARY PATIENT: JAMES STAPLETON UNIT: [id number] ADM DATE: 07/14/19 AGE: 39 : 82 SEX: F ROOM/BED: D.2239 AUTHOR: PAPA HAN PHYSICIAN: REFERRING PHYSICIAN: COURTNEY TEMPLETON MD DATE OF SERVICE: 07/14/19 Discharge Plan Patient Name: JAMES STAPLETON Facility: [facility]:[place] : 1980 Planned Disposition: Anticipated Discharge Date: Discharge Date: Expected LOS: Initial Reviewer: [email or web address] Initial Review Date: 07/14/2019 Generated: 07/14/19 5:35 pm Comments DCP- Discharge Planning Updated by [email or web address]: Tabitha Bahena on 07/14/19 3:[address] CM met with patient to discuss initial discharge planning. Patient is in agreement to proceed with assessment. Patient is alert/oriented. Stairs/steps: No. PCP: [facility]. [facility]: [email or web address]. HHS: [facility]. No aide available at present. DME: Cane, Talking glucometer. Patient gives permission to speak with family members/SO. Emergency contact: Delon Pinto (SO). Independent/Partial ADL's: SO assist patient with personal care. CM discussed the availability of HH, Rehab, DME services. Patient Will require the an ORDER for the resumption of HHS upon discharge. Patient states she feels safe returning to previous environment. Patient denies being hospitalized within the past 30 days. Community resources: [facility], [facility]. Transportation at time of discharge: Delon Pinto () [phone]. Last DP export: 07/14/19 3:16 Patient Name: JAMES STAPLETON Page 63398 at 1635 All edits/amendments must be made on the electronic document DICTATION DATE: 07/14/19 1635 GUARD MANAGER: EUGENE 07/14/19 1635 RPT#: [id number] DC DATE: STATUS: ADM IN [facility] [address] [place] [address] END OF REPORT
--- NOTE | 2019-07-14 17:34 | NUR ---
FSBS= 431 MG/DL
--- NOTE | 2019-07-14 17:50 | NUR ---
CALLED SARAH LEDESMA FOR ELEVATED BS. CHANGE PT TO ICU STATUS AND ORDER STAT BMP. CALLIE REPORTS HE WILL PUT ORDERS IN FOR INSULIN GTT
[2019-07-14 19:05] LABS: ANION GAP 21.3 mmol/L (8-16); CALCIUM 8.2 mg/dL (8.5-10.1); CARBON DIOXIDE 19.1 mmol/L (21.0-32.0); CREATININE - SERUM 1.6 mg/dL (0.6-1.3); POTASSIUM - SERUM 4.4 mmol/L (3.5-5.1)
--- NOTE | 2019-07-14 19:10 | NUR ---
KRYSTAL TC FROM LAB: GLUCOSE 465.
--- NOTE | 2019-07-14 19:11 | NUR ---
REPORT TO EVANGELISTA, RN
--- NOTE | 2019-07-14 20:10 | NUR ---
PT ON UNIT VIA STRETCHER ACCOMPANIED BY ER STAFF - TEAM TRANSFER TO ICU BED PLACED ON MONITORS, ADMISSION ASSESSMENT AND HISTORY COMPLETED AT THIS TIME. MED RECONCILLIATION COMPLETED. BS CHECKED AND PUMP ADJUSTED ACCORDINGLY SEE FLOWSHEET. PT DENIES NEEDS OR PAIN AT THIS TIME. VSS CPOC
--- NOTE | 2019-07-14 23:05 | NUR ---
REASSESSMENT COMPLETED SEE FLOWSHEET
--- NOTE | 2019-07-14 23:10 | NUR ---
PT REQUESTED PRN PAIN MEDICATION SEE EMAR FOR ADMINISTRATION
[2019-07-14 23:21] LABS: CALCIUM 8.3 mg/dL (8.5-10.1); CREATININE - SERUM 1.6 mg/dL (0.6-1.3)
[2019-07-14 23:25] LABS: ANION GAP 14.6 mmol/L (8-16); CARBON DIOXIDE 24.1 mmol/L (21.0-32.0); POTASSIUM - SERUM 3.7 mmol/L (3.5-5.1)
[2019-07-15] VITALS (22 sets, daily range): BP systolic 102–163; BP diastolic 60–105; Ht 162.6 cm; Wt 80.9 kg
--- NOTE | 2019-07-15 00:30 | NUR ---
NEW ORDERS RECEIVED
--- NOTE | 2019-07-15 00:45 | NUR ---
PT C/O ARM HURTING AT IV SITE. - DC WITH CATH INTACT - RN IV START ATTEMPT X3 - ER CALLED TO BEDSIDE FOR IV ATTEMPT, IV STARTED LEFT UPPER SHOULDER CPOC
--- NOTE | 2019-07-15 03:05 | NUR ---
REASSESSMENT COMPLETED
--- NOTE | 2019-07-15 04:10 | NUR ---
PT REQUESTED PRN PAIN MEDICATION - SEE EMAR FOR ADMINISTRATION
--- NOTE | 2019-07-15 05:21 | NUR ---
PT RESTING COMFOTABLY DENIES NEEDS
--- NOTE | 2019-07-15 06:14 | NUR ---
LAB UNABLE TO OBTAIN BLOOD SAMPLE AT THIS TIME
--- NOTE | 2019-07-15 08:00 | NUR ---
LAB HERE BLOOD DRAWN. AWAKES EASILY SKIN WARM AND DRY. IV LEFT SHOULDER NO SWELLING OR REDNESS. INFUSING WITH D51/2NS WITH 20 MEQ KCL INFUSING AT 125 ML HOUR. INSULIN GTT ADJUSTED PER PROTOCAL. SEE DKA INSULIN ADJUSTMENT PROTOCAL FLOWHEET. PATIENT COOPERATIVE. TAKING PO ICE CHIPS.
[2019-07-15 08:16] LABS: KETONE - SERUM NEGATIVE (NEGATIVE)
[2019-07-15 08:19] LABS: CALCIUM 8.3 mg/dL (8.5-10.1); CARBON DIOXIDE 23.5 mmol/L (21.0-32.0); CHLORIDE - SERUM 112 mmol/L (98-107); CREATININE - SERUM 1.2 mg/dL (0.6-1.3); SODIUM 147 mmol/L (136-145); UREA NITROGEN 28 mg/dL (7-18); eGFR NON AFRICAN AMERICAN 53 mL/min (90-120)
[2019-07-15 08:21] LABS: CALC OSMOLALITY 300 mosm/kg (275-300); GLUCOSE 157 mg/dL (74-106); POTASSIUM - SERUM 4.4 mmol/L (3.5-5.1)
--- NOTE | 2019-07-15 10:00 | NUR ---
COMPLETE HIBCLENS BATH GIVEN WITH LINEN CHANGE. PATIENT TOLERATED WELL. INSULIN GTT CONTINUES PER PROTOCAL.
[2019-07-15 11:29] LABS: ANION GAP 14.3 mmol/L (8-16); CALCIUM 8.4 mg/dL (8.5-10.1); CARBON DIOXIDE 24.5 mmol/L (21.0-32.0); CREATININE - SERUM 1.2 mg/dL (0.6-1.3); POTASSIUM - SERUM 3.8 mmol/L (3.5-5.1)
--- NOTE | 2019-07-15 11:30 | NUR ---
PATIENT STATES HER STOMACH AND BACK ARE HURTING AT A 9. REQUESTING PAIN MEDS. DR. INGRAM CALLED. ORDERS RECEIVED.
--- NOTE | 2019-07-15 12:30 | NUR ---
DIET LEMON [place] DRINK GIVEN WITH PO MEDS DUE TO NAUSEA.
--- NOTE | 2019-07-15 13:30 | NUR ---
DR. INGRAM HERE ORDRES RECEIVED. PATIENT CONTINUES ON INSULIN GTT PER PROTOCAL.
--- NOTE | 2019-07-15 15:30 | NUR ---
UP TO BSC WITH MINIMAL ASSISTANCES, NEEDS GUIDANCES DUE TO BLIND. VOIDED CLEAR MARQUISE URINE. GAIT GOOD
[2019-07-15 17:21] LABS: ANION GAP 12.2 mmol/L (8-16); CALCIUM 8.3 mg/dL (8.5-10.1); CARBON DIOXIDE 24.4 mmol/L (21.0-32.0); CREATININE - SERUM 1.2 mg/dL (0.6-1.3); POTASSIUM - SERUM 3.6 mmol/L (3.5-5.1)
--- NOTE | 2019-07-15 18:58 | NUR ---
1600-HYDROCODONE 7.5MG PO GIVEN FOR CHRONIC ABD PAIN- 1700-BMP DRAWN FOLLOWING 3 ATTEMPTS
--- NOTE | 2019-07-15 19:19 | NUR ---
BEDSIDE SHIFT REPORT COMPLETED - LEFT SHOULDER IV INFILTRATED. PT CO OF PAIN SAYS SHE FEELS LIKE SHE HAS A CUT. IV MEDICATIONS STOPPED AT THIS TIME, SHIFT ASSESSMENT COMPLETED SEE FLOWSHEET. PAGED FAMILY PRACTICE AT THIS TIME. HYPOTENSION NOTED, PATIENT REQUESTS PHONE, CPOC
--- NOTE | 2019-07-15 19:31 | NUR ---
NEPTALI CORONADO RETURNED CALL, ORDER FOR MIDLINE OR CENTRAL LINE PLACEMENT AT THIS TIME. CONTACTED VERA, VASCULAR ACCESS NURSE IN THE ER - SHE WILL COME AND TRY TO PLACE A MIDLINE
--- NOTE | 2019-07-15 19:34 | NUR ---
HOLDING FSBS CHECK AT THIS TIME UNTIL VASCULAR ACCESS IS OBTAINED. VSS CPOC
--- NOTE | 2019-07-15 19:40 | NUR ---
LEFT SHOULDER PIV DC WITH CATH INTACT AT THIS TIME
--- NOTE | 2019-07-15 20:03 | NUR ---
VASCULAR ACCESS NURSE AT BEDSIDE AT THIS TIME
--- NOTE | 2019-07-15 20:45 | NUR ---
VASCULAR ACCESS NURSE UNABLE TO OBTAIN MIDLINE ACCESS AT THIS TIME PAGED SURGERY
--- NOTE | 2019-07-15 20:56 | NUR ---
DR NOGUEIRA RETURNED CALL, WILL COME IN TO PUT IN A CENTRAL LINE
--- NOTE | 2019-07-15 21:15 | NUR ---
DR NOGUEIRA AT BEDSIDE CONSENT FOR CENTRAL LINE PLACEMENT
--- NOTE | 2019-07-15 21:20 | NUR ---
RIGHT TLSC CENTRAL LINE PLACED PER JERO WITHOUT DIFFICULTY. STAT XRAY FOR CENTRAL LINE PLACEMENT
--- NOTE | 2019-07-15 21:45 | NUR ---
DR NOGUEIRA ON UNIT VIEWING XRAY LINE IN PLACE STATES OK TO USE CENTRAL LINE
--- NOTE | 2019-07-15 22:00 | NUR ---
BLOOD GLUCOSE CHECKED AT THIS TIME, NEW INSULIN DRIP, FLUIDS AND TUBING CONNECTED TO RIGHT SUBCLAVIAN CENTRAL LINE AT THIS TIME. PT DENIES NEEDS VSS CPOC
--- NOTE | 2019-07-15 23:05 | NUR ---
REASSESMENT COMPLETED SEE FLOWSHEET
[2019-07-15 23:47] LABS: ANION GAP 11.6 mmol/L (8-16); CALCIUM 7.8 mg/dL (8.5-10.1); CARBON DIOXIDE 23.9 mmol/L (21.0-32.0); CREATININE - SERUM 1.2 mg/dL (0.6-1.3); POTASSIUM - SERUM 3.5 mmol/L (3.5-5.1)
[2019-07-16] VITALS (22 sets, daily range): BP systolic 88–139; BP diastolic 51–108
--- NOTE | 2019-07-16 01:32 | NUR ---
PATIENT RESTING COMFORTABLY, AWAKE AND ALERT TALKING ON HER PHONE, DENIES NEEDS VSS. CPOC
--- NOTE | 2019-07-16 02:45 | NUR ---
REASSESSMENT COMPLETED SEE FLOWSHEET
[2019-07-16 05:54] LABS: HEMATOCRIT 31.5 % (36.0-48.0); MCH 25.6 pg (26.0-34.0); MCHC 31.7 g/dL (31.0-37.0); MCV 80.6 fL (80.0-100.0); MEAN PLATELET VOLUME 10.8 fL (7.4-10.4); RBC 3.91 10x6/uL (4.00-5.40); RDW 14.2 % (11.5-14.5)
[2019-07-16 05:57] LABS: KETONE - SERUM NEGATIVE (NEGATIVE)
[2019-07-16 06:07] LABS: PLATELET COUNT 282 10x3/uL (130-400); WBC 8.2 10x3/uL (4.8-10.8)
[2019-07-16 06:30] LABS: CALC OSMOLALITY 288 mosm/kg (275-300); CALCIUM 8.2 mg/dL (8.5-10.1); CARBON DIOXIDE 25.5 mmol/L (21.0-32.0); CHLORIDE - SERUM 112 mmol/L (98-107); MAGNESIUM - SERUM 1.9 mg/dL (1.8-2.4); PHOSPHOROUS 2.6 mg/dL (2.5-4.9); POTASSIUM - SERUM 3.6 mmol/L (3.5-5.1); SODIUM 145 mmol/L (136-145); UREA NITROGEN 14 mg/dL (7-18); eGFR NON AFRICAN AMERICAN 66 mL/min (90-120)
[2019-07-16 06:40] LABS: GLUCOSE 77 mg/dL (74-106)
[2019-07-16 06:49] LABS: EOSINOPHILS 2 % (0-7); LYMPHOCYTES 57 % (15-50); MONOCYTES 2 % (2-11); NEUTROPHILS 39 % (40-80); PLATELET ESTIMATE NORMAL
--- NOTE | 2019-07-16 07:30 | NUR ---
AWAKES EASILY TO VERBAL STIMULI SKIN WARM AND DRY. CENTRAL LINE RIGHT SUBCLAVIAN DRESSING DRY AND INTACT INFUSING WITH D51/2NS WITH 20 MEQ KCL AT 125 ML HOUR. INSULIN GTT ADJUSTED PER PROTOCAL. SEE DKA INSULIN ADJUSTMENT PROTOCAL FLOWHSEET. STATES HER ABD IS FEELING BETTER, STILL SOME TENDERNESS. MONITOR SR.
--- NOTE | 2019-07-16 07:56 | NUR ---
BREAKFAST SET UP AND SERVED. ATE FEEDING SELF.
--- NOTE | 2019-07-16 09:22 | NUR ---
ATE WELL AT BREAKFAST, WATCHING TV. TALKING ON CELL PHONE. NO DISTRESS. NO NAUSEA. INSULIN GTT AT 3.9 UNITS HOUR.
--- NOTE | 2019-07-16 11:00 | NUR ---
LUNCH TRAY SERVED GOOD APPETITE. NO DISTRESS. INSULIN GTT PER PROTOCAL
--- NOTE | 2019-07-16 13:00 | NUR ---
INSULIN GTT OFF, IV FLUIDS STOPPED. LINE FLUSHED WITH [address]INE[address] NO DISTRESS[address]. GUERRA HERE
--- NOTE | 2019-07-16 15:00 | NUR ---
UP IN CHAIR AT BEDSIDE. CRANBERRY JUICE GIVEN FOR UTI. PO MEDS TAKEN NO DISTRESS. WATCHING TV. TALKING ON PHONE
--- NOTE | 2019-07-16 19:00 | NUR ---
REPORT RECIEVED, SHIFT ASSESSMENT COMPLETE, PT IS ALERT AND ORIENTED, SITTING UP IN CHIAR, ALL PPP, VSS, CALL LIGHT IN REACH
--- NOTE | 2019-07-16 19:04 | NUR ---
DR. GEURRA NOTIFIED OF SUGAR 493. ORDERS RECEIVED FOR ADDITIONAL 5 UNITS SQ AND GIVEN LANTUS NOW.
--- NOTE | 2019-07-16 21:15 | NUR ---
PT UPTO BSC, 200CC UOP, BACK TO BED, PT TOLERATED WELL
--- NOTE | 2019-07-16 23:30 | NUR ---
BS 33, JUICE, CRACKERS AND PB GIVEN TO PT, WILL RECHECK IN 30 MIN
[2019-07-17] VITALS (13 sets, daily range): BP systolic 96–151; BP diastolic 47–88
--- NOTE | 2019-07-17 01:00 | NUR ---
BS NOW 138, PT RESTING COMFORTABLY
--- NOTE | 2019-07-17 03:09 | NUR ---
REASSESSMENT COMPLETE, NO CHANGES NOTED, PT RESTING AT THIS TIME, VSS, CALL LIGHT IN REACH
--- NOTE | 2019-07-17 05:00 | NUR ---
PT RESTING AT THIS TIME, WILL CON'T TO MONITOR
[2019-07-17 05:02] LABS: BASOPHILS 0.2 % (0-2); HEMATOCRIT 28.9 % (36.0-48.0); HEMOGLOBIN 9.2 g/dL (12-16); IMMATURE GRANULOCYTES 0.2 % (0-5); LYMPHOCYTES 51.2 % (15-50); MCH 25.8 pg (26.0-34.0); MCHC 31.8 g/dL (31.0-37.0); MCV 81.2 fL (80.0-100.0); MEAN PLATELET VOLUME 10.3 fL (7.4-10.4); MONOCYTES 7.6 % (2-11); NEUTROPHILS 36.8 % (40-80); PLATELET COUNT 234 10x3/uL (130-400); RBC 3.56 10x6/uL (4.00-5.40); RDW 14.2 % (11.5-14.5); WBC 6.3 10x3/uL (4.8-10.8)
[2019-07-17 05:12] LABS: CALC OSMOLALITY 278 mosm/kg (275-300); CALCIUM 8.4 mg/dL (8.5-10.1); CARBON DIOXIDE 29.1 mmol/L (21.0-32.0); CHLORIDE - SERUM 108 mmol/L (98-107); CREATININE - SERUM 0.9 mg/dL (0.6-1.3); GLUCOSE 103 mg/dL (74-106); MAGNESIUM - SERUM 1.9 mg/dL (1.8-2.4); SODIUM 140 mmol/L (136-145); UREA NITROGEN 13 mg/dL (7-18); eGFR NON AFRICAN AMERICAN 74 mL/min (90-120)
[2019-07-17 05:15] LABS: PHOSPHOROUS 3.4 mg/dL (2.5-4.9); POTASSIUM - SERUM 4.6 mmol/L (3.5-5.1)
[2019-07-17 05:16] LABS: KETONE - SERUM NEGATIVE (NEGATIVE)
--- NOTE | 2019-07-17 07:20 | NUR ---
PATIENT SLEEPING. DOES NOT WATNT TO BE DISTURBED DUE TO LACK OF SLEEP. ALERT AND ORIENTED. R SUBCLAVIAN SL. NO ACUTE DISTRESS. PATIENT BLIND. BED LOW AND LOCKED. CALL LIGHT WITHIN REACH. BED SDIE TABLE WITHIN REACH. EDCUATED ON HOW TO USE CALL LIGHT AND CALL FOR HELP. WILL CONTINUE TO MONITR
--- NOTE | 2019-07-17 09:52 | NUR ---
breakfast provided. blood sugar checked 185. no acute distress. patient ambulatory to bedside commode.
--- NOTE | 2019-07-17 09:55 | NUR ---
NUTRITION F/U PT TOLERATING DIABETIC DIET THIS AM. WILL CONTINUE TO PROVIDE DIET, MONITOR PO INTAKE AND LABS. RD FOLLOWING
--- NOTE | 2019-07-17 10:08 | NUR ---
DR GUERRA AT BEDSIDE. VERBAL ORDER TO TRANSFER TO THE FLOOR
--- NOTE | 2019-07-17 10:45 | NUR ---
report given to cassius
--- NOTE | 2019-07-17 12:47 | NUR ---
NUTRITION CONSULT VERBAL FOR DIABETIC EDU. PT BLIND, REPORTS SHE LIVES UPSTAIRS FROM HER BOYFRIEND. SOME CONFUSION ABOUT CARB CHOICES. STATES SHE EATS "TV DINNERS" WHEN BOYFRIEND IS AWAY. DISCUSSED CARB SOURCES WITH PT. FEEL PT IS BETTER SUITED TO NO CONCENTRATED SWEETS DIET. PROVIDED HER WITH LITERATURE TO GIVE TO HER BOYFRIEND. DISCUSSED SOURCES OF CONCENTRATED SWEETS FOR HER TO AVOID. PT STATES HER MOTHER COMES EVERY MONTH OR TWO FROM [place] TO CHECK ON HER. PT ALSO REPORTS SHE LOST HER "PERMIT" FOR MEDS. HAD HOME HEALTH AT ONE TIME WELL. SPOKE WITH DR. GUERRA, HE IS IN AGREEMENT ~ NO CONCENTRATED SWEET DIET. STATED HE WILL CHECK ON MEDS AND POSSIBILITY OF HOME HEALTH ASSISTANCE. RD FOLLOWING
--- NOTE | 2019-07-17 18:42 | NUR ---
PT ARRIVED VIA WHEELCHIAR, VERY PERSONABLE AND FRIENDLY. NO COMPLAITNS OR CONCERNS, BLIND BUT FUNCTIONAL WITH MINIMAL DIRECTION. NO FAMILY PRESENT AT BEDSIDE. CL INR EACH, SRX2.
--- NOTE | 2019-07-17 19:30 | NUR ---
ASSISTEDD PT WITH BATH AND LINEN CHANGE BED LOW AND LOCKED CALL LIGHT WITH PT SAFTY CHECK DONE PT LEGALLY BLIND
[2019-07-18] VITALS: BP 149/71
--- NOTE | 2019-07-18 02:45 | NUR ---
I have reviewed this patient and I concur with the Shift Assessment completed by the Licensed Practical Nurse today this shift.
[2019-07-18 04:00] VITALS: BP 142/86
[2019-07-18 04:51] LABS: BASOPHILS 0.3 % (0-2); EOSINOPHILS 2.2 % (0-7); HEMATOCRIT 31.7 % (36.0-48.0); HEMOGLOBIN 10.2 g/dL (12-16); IMMATURE GRANULOCYTES 0.2 % (0-5); LYMPHOCYTES 48.6 % (15-50); MCH 25.7 pg (26.0-34.0); MCHC 32.2 g/dL (31.0-37.0); MCV 79.8 fL (80.0-100.0); MEAN PLATELET VOLUME 10.6 fL (7.4-10.4); MONOCYTES 5.8 % (2-11); NEUTROPHILS 42.9 % (40-80); PLATELET COUNT 241 10x3/uL (130-400); RBC 3.97 10x6/uL (4.00-5.40); RDW 13.6 % (11.5-14.5); WBC 5.9 10x3/uL (4.8-10.8)
[2019-07-18 05:14] LABS: ANION GAP 10.5 mmol/L (8-16); CALCIUM 8.8 mg/dL (8.5-10.1); CARBON DIOXIDE 29.1 mmol/L (21.0-32.0); CREATININE - SERUM 1.1 mg/dL (0.6-1.3); MAGNESIUM - SERUM 1.9 mg/dL (1.8-2.4); PHOSPHOROUS 2.8 mg/dL (2.5-4.9); POTASSIUM - SERUM 4.6 mmol/L (3.5-5.1)
--- NOTE | 2019-07-18 07:26 | NUR ---
REPORT RECEIVED. WILL CONTINUE WITH POC. PT CURRENTLY LYING SEMI FOWLERS. CALL LIGHT W/I REACH. PT IS AAO AND UP WITH ASSIST. RR EVEN AND UNLABORED ON RA. R.SUBCLAVIAN CVL IS SALINE LOCKED. NO S/S OF DISTRESS NOTED. PT DENIES ANY NEEDS AT THIS TIME. WILL CTM.
--- NOTE | 2019-07-18 08:16 | MORECARE ---
CASE MANAGEMENT DISCHARGE SUMMARY PATIENT: JAMES STAPLETON UNIT: [id number] ADM DATE: 07/14/19 AGE: 39 : 82 SEX: F ROOM/BED: D.8853 AUTHOR: PAPA HAN PHYSICIAN: REFERRING PHYSICIAN: COURTNEY TEMPLETON MD DATE OF SERVICE: 07/18/19 Discharge Plan Patient Name: JAMES STAPLETON Facility: [facility]:[place] : 1980 Planned Disposition: Home with Home Health Anticipated Discharge Date: Discharge Date: Expected LOS: Initial Reviewer: [email or web address] Initial Review Date: 07/14/2019 Generated: 07/18/19 9:15 am DCP- Discharge Planning Updated by [email or web address]: Tabitha Bahena on 07/14/19 3:[address] CM met with patient to discuss initial discharge planning. Patient is in agreement to proceed with assessment. Patient is alert/oriented. Stairs/steps: No. PCP: [facility]. [facility]. HHS: [facility]. No aide available at present. DME: Cane, Talking glucometer. Patient gives permission to speak with family members/SO. Emergency contact: Delon Pinto (SO). Independent/Partial ADL's: SO assist patient with personal care. CM discussed the availability of HH, Rehab, DME services. Patient Will require the an ORDER for the resumption of HHS upon discharge. Patient states she feels safe returning to previous environment. Patient denies being hospitalized within the past 30 days. Community resources: Food Pantry, SSD. Transportation at time of discharge: Delon Pinto () [phone]. Last DP export: 07/14/19 3:35 Patient Name: JAMES STAPLETON Page [id number] at 0816 All edits/amendments must be made on the electronic document DICTATION DATE: 07/18/19814 LINEN CLERK: EUGENE 07/18/19814 RPT#: [id number] DC DATE: STATUS: ADM IN [facility] [address] [place] [address] END OF REPORT
[2019-07-18] MEDS ORDERED: NEURONTIN 300300 MG PO (09:06)
[2019-07-18] MEDS ORDERED: COMBIGAN OPHT DR5 ML EACH EYE (09:07)
[2019-07-18] MEDS ORDERED: Lantus Insulin SC (09:10)
[2019-07-18] MEDS ORDERED: NOVOLOG100 UNIT/1 SC (09:11)
--- NOTE | 2019-07-18 09:35 | MORECARE ---
CASE MANAGEMENT DISCHARGE SUMMARY PATIENT: JAMES STAPLETON UNIT: [id number] ADM DATE: 07/14/19 AGE: 39 : 81 SEX: F ROOM/BED: D.9623 AUTHOR: GUILLE,DOC PHYSICIAN: REFERRING PHYSICIAN: COURTNEY TEMPLETON MD DATE OF SERVICE: 07/18/19 Discharge Plan Patient Name: JAMES STAPLETON Facility: [facility]:[place] : 1980 Planned Disposition: Home with Home Health Anticipated Discharge Date: Discharge Date: Expected LOS: Initial Reviewer: [email or web address] Initial Review Date: 07/14/2019 Generated: 07/18/19 10:35 am Comments DCP- Discharge Planning Updated by [id number]: Barbara Green on 07/18/19 8:[address] Late Entry - 07/17/19 CM met with patient at bedside. Patient is blind. Patient states that she has lost her blind cane. Patient also states she is interested in getting an aide to help with her housekeeping and other ADL's. Patient states she lives alone but her boyfriend lives in the same apartment complex. Patient states that as far as her insulin goes she need the insulin pens so she can hear the clicks to how many units needed. She stated she has been out of insulin for awhile because she been into PCP office to get RX refilled. CM will give patient information/ telephone number for AAA to help with assistance in the home. CM will try to find out information on replacing blind cane. CM will continue to follow and assist as needed with discharge planning / needs. DCP- Discharge Planning Updated by [email or web address]: Tabitha Bahean on 07/14/19 3:[address] CM met with patient to discuss initial discharge planning. Patient is in agreement to proceed with assessment. Patient is alert/oriented. Stairs/steps: No. PCP: [facility]. Pharmacy: [facility] HHS: [facility]. No aide available at present. DME: Cane, Talking glucometer. Patient gives permission to speak with family members/SO. Emergency contact: Delon Pinto (SO). Independent/Partial ADL's: SO assist patient with personal care. CM discussed the availability of HH, Rehab, DME services. Patient Will require the an ORDER for the resumption of HHS upon discharge. Patient states she feels safe returning to previous environment. Patient denies being hospitalized within the past 30 days. Community resources: Food Pantry, SSD. Transportation at time of discharge: Delon Pinto () [phone]. Last DP export: 07/18/19 7:16 Patient Name: JAMES STAPLETON Page [phone] at 0935 All edits/amendments must be made on the electronic document DICTATION DATE: 07/18/19934 PATIENT FINANCIAL COORDINATOR: EUGENE 07/18/19934 RPT#: [id number] DC DATE: STATUS: ADM IN [facility] [address] [place] [address] END OF REPORT
--- NOTE | 2019-07-18 11:44 | NUR ---
GUERO HOOVER REMOVED CVL WITH CATHETER TIP FULLY INTACT @1130. PRESSURE HELD FOR 15 MINUTES. NO S/S OF HEMATOMA OR BLEEDING PRESENT. WILL CTM
--- NOTE | 2019-07-18 11:53 | NUR ---
ALERT AND ORIENTED X4. LAYING DOWN IN BED. DC RT CHEST CVL TRIPLE LUMEN TIP INTACT. 2 SUTURES REMOVED PRIOR TO REMOVAL. PRESSURE HELP PER PROTOCOL. ENCOURAGE TO REMAIN FLAT FOR 15 MINS. MAXINE GARCIA RESUMES CARE PLAN.
--- NOTE | 2019-07-18 12:00 | NUR ---
PT DISCHARGED HOME VIA WHEELCHAIR WITH FAMILY. PT SIGNED PROPER DISCHARGE INSTRUCTIONS AND REMOVED ALL VALUABLES FROM THE ROOM.
--- NOTE | 2019-07-19 08:54 | MORECARE ---
CASE MANAGEMENT DISCHARGE SUMMARY PATIENT: JAMES STAPLETON UNIT: [id number] ADM DATE: 07/14/19 AGE: 39 : 82 SEX: F ROOM/BED: D.2993 AUTHOR: GUILLE,DOC PHYSICIAN: REFERRING PHYSICIAN: COURTNEY TEMPLETON MD DATE OF SERVICE: 07/19/19 Discharge Plan Patient Name: JAMES STAPLETON Facility: [facility]:[place] : 1980 Planned Disposition: Home with Home Health Anticipated Discharge Date: Discharge Date: 07/18/2019 Expected LOS: Initial Reviewer: [email or web address] Initial Review Date: 07/14/2019 Generated: 07/19/19 9:53 am DCP- Discharge Planning Updated by [email or web address]: Barbara Green on 07/18/19 8:[address] Late Entry - 07/17/19 CM met with patient at bedside. Patient is blind. Patient states that she has lost her blind cane. Patient also states she is interested in getting an aide to help with her housekeeping and other ADL's. Patient states she lives alone but her boyfriend lives in the same apartment complex. Patient states that as far as her insulin goes she need the insulin pens so she can hear the clicks to how many units needed. She stated she has been out of insulin for awhile because she been into PCP office to get RX refilled. CM will give patient information/ telephone number for AAA to help with assistance in the home. CM will try to find out information on replacing blind cane. CM will continue to follow and assist as needed with discharge planning / needs. DCP- Discharge Planning Updated by [email or web address]: Tabitha Bahena on 07/14/19 3:[address] CM met with patient to discuss initial discharge planning. Patient is in agreement to proceed with assessment. Patient is alert/oriented. Stairs/steps: No. PCP: [facility]. Pharmacy: [facility]. No aide available at present. DME: Cane, Talking glucometer. Patient gives permission to speak with family members/SO. Emergency contact: Delon Pinto (SO). Independent/Partial ADL's: SO assist patient with personal care. CM discussed the availability of HH, Rehab, DME services. Patient Will require the an ORDER for the resumption of HHS upon discharge. Patient states she feels safe returning to previous environment. Patient denies being hospitalized within the past 30 days. Community resources: Food Pantry, SSD. Transportation at time of discharge: Delon Pinto ) [phone]. External Providers External Provider: [facility] Next Contact Date: 07/19/2019 Service Request Date: Service Type: Resolution: Reviewer: Comments: Last DP export: 07/18/19 8:35 Patient Name: JAMES STAPLETON Page [id number] at 0854 All edits/amendments must be made on the electronic document DICTATION DATE: 07/19/19852 WATER PURIFIER OPERATOR: EUGENE 07/19/19852 RPT#: [id number] DC DATE:07/18/19 STATUS: DIS IN [facility] [address] [place] [address] END OF REPORT
--- NOTE | 2019-07-19 09:08 | MORECARE ---
CASE MANAGEMENT DISCHARGE SUMMARY PATIENT: JAMES STAPLETON UNIT: [id number] ADM DATE: 07/14/19 AGE: 39 : 82 SEX: F ROOM/BED: D.2133 AUTHOR: GUILLE,DOC PHYSICIAN: REFERRING PHYSICIAN: COURTNEY TEMPLETON MD DATE OF SERVICE: 07/19/19 Discharge Plan Patient Name: JAMES STAPLETON Facility: [facility]:[place] : 1980 Planned Disposition: Home with Home Health Anticipated Discharge Date: 07/18/19 Discharge Date: 07/18/2019 Expected LOS: 4 Initial Reviewer: [email or web address] Initial Review Date: 07/14/2019 Generated: 07/19/19 10:07 am Comments DCP- Discharge Planning Updated by [email or web address]: Hugh Anderson on 07/19/19 8:[address] Patient Name: JAMES STAPLETON Encounter No: [id number] : 1980 Primary Insurance: MEDICAID [place] Anticipated DC Date: 07-18-2019 Planned Disposition: Home with Home Health External Planned Provider: [facility] DCP follow-up note: CM RECEIVED DISCHARGE AND HOME HEALTH ORDER 07-18-19. ON 07-19-19, CM CALLED [facility], , SPOKE TO BEATRICE WITH REQUEST TO RESUME HOME HEALTH SERVICES NOTED BY CASE MANAGEMENT. WAS ADVISED BY BEATRICE THAT THE PT WAS DISCHARG[facility] FROM [facility] AND THEY WILL ARRANGE NEW HOME HEALTH IF NEEDED. MAEGAN PROVIDED REFERRAL INFORMATION AND FAXED REFERRAL FOR NEW HOME HEALTH TO [place] AT [phone]. Hugh Anderson, CASE MANAGEMENT DCP- Discharge Planning Updated by [email or web address]: Barbara Green on 07/18/19 8:[address] Late Entry - 07/17/19 CM met with patient at bedside. Patient is blind. Patient states that she has lost her blind cane. Patient also states she is interested in getting an aide to help with her housekeeping and other ADL's. Patient states she lives alone but her boyfriend lives in the same apartment complex. Patient states that as far as her insulin goes she need the insulin pens so she can hear the clicks to how many units needed. She stated she has been out of insulin for awhile because she been into PCP office to get RX refilled. CM will give patient information/ telephone number for AAA to help with assistance in the home. CM will try to find out information on replacing blind cane. CM will continue to follow and assist as needed with discharge planning / needs. DCP- Discharge Planning Updated by [id number]: Tabitha Bahena on 07/14/19 3:[address] CM met with patient to discuss initial discharge planning. Patient is in agreement to proceed with assessment. Patient is alert/oriented. Stairs/steps: No. PCP: [facility]. [facility]: [facility]. HHS: [facility]. No aide available at present. DME: Cane, Talking glucometer. Patient gives permission to speak with family members/SO. Emergency contact: Delon Pinto (SO). Independent/Partial ADL's: SO assist patient with personal care. CM discussed the availability of HH, Rehab, DME services. Patient Will require the an ORDER for the resumption of HHS upon discharge. Patient states she feels safe returning to previous environment. Patient denies being hospitalized within the past 30 days. Community resources: Food Pantry, SSD. Transportation at time of discharge: Delon Pinto () [phone]. Last DP export: 07/19/19 7:54 Patient Name: JAMES STAPLETON Page 19892 at 0908 All edits/amendments must be made on the electronic document DICTATION DATE: 07/19/19906 DRAFTER PLUMBING: DM 07/19/19906 RPT#: [id number] DC DATE:07/18/19 STATUS: DIS IN [facility] [address] [place] [address] END OF REPORT
== END 2019-07-18 12:00 | disposition home health service (06) | DRG 638 ==
LOC: D.ER 11:27 → D.M2 14:28 → D.MS 14:28 → D.ICU 14:28 → D.M2 07-17 11:09
PROVIDERS: Emergency Medicine; Family Medicine; Internal Medicine Nephrology; ADMIT Family Medicine; ATTEND Family Medicine
PROC: 05H533Z Insertion of Infusion Device into Right Subclavian Vein, Percutaneous Approach (ICD-10-PCS; principal; 2019-07-15)
DX: E11.10 Type 2 diabetes mellitus with ketoacidosis without coma (principal); N17.9 Acute kidney failure, unspecified; N39.0 Urinary tract infection, site not specified; Z79.4 Long term (current) use of insulin; E11.65 Type 2 diabetes mellitus with hyperglycemia; K21.9 Gastro-esophageal reflux disease without esophagitis; F41.8 Other specified anxiety disorders; D50.9 Iron deficiency anemia, unspecified; Z86.73 Personal history of transient ischemic attack (TIA), and cerebral infarction without residual deficits; Z91.14 Patient's other noncompliance with medication regimen; H54.8 Legal blindness, as defined in USA

== ENCOUNTER 2019-12-14 04:51 | Observation (INO) | payer MEDICAID ==
[2019-12-14] VITALS (7 sets, daily range): BP systolic 92–156; BP diastolic 66–84; Ht 162.6 cm; Wt 77.3 kg
[~2019-12-14] VITALS: Ht 162.6 cm; Wt 77.3 kg
[~2019-12-14 04:51] MED LIST changes: +Lantus Insulin SC; +NOVOLOG100 UNIT/1 SC
[2019-12-14 06:48] LABS: BASOPHILS 0.1 % (0-2); EOSINOPHILS 0.7 % (0-7); HEMOGLOBIN 11.2 g/dL (12-16); IMMATURE GRANULOCYTES 0.1 % (0-5); LYMPHOCYTES 33.5 % (15-50); MCH 25.2 pg (26.0-34.0); MCHC 31.1 g/dL (31.0-37.0); MCV 81.1 fL (80.0-100.0); MEAN PLATELET VOLUME 11.7 fL (7.4-10.4); MONOCYTES 5.2 % (2-11); NEUTROPHILS 60.4 % (40-80); PLATELET COUNT 286 10x3/uL (130-400); RBC 4.44 10x6/uL (4.00-5.40); RDW 14.6 % (11.5-14.5); WBC 7.1 10x3/uL (4.8-10.8)
[2019-12-14 06:56] LABS: ANION GAP 12.6 mmol/L (8-16); CALCIUM 9.6 mg/dL (8.5-10.1); CARBON DIOXIDE 30.2 mmol/L (21.0-32.0); CREATININE - SERUM 1.4 mg/dL (0.6-1.3); POTASSIUM - SERUM 3.8 mmol/L (3.5-5.1)
[2019-12-14 07:10] LABS: BILIRUBIN - TOTAL 0.29 mg/dL (0.2-1.3); MAGNESIUM - SERUM 2.2 mg/dL (1.8-2.4); PROTEIN - SERUM 7.4 g/dL (6.4-8.2); THYROID STIMULATING HORMONE 1.82 uIU/mL (0.36-3.74)
--- NOTE | 2019-12-14 07:13 | NUR ---
ASSUMED CARE OF PT AT THIS TIME. NS BAG HANGING BUT OCCLUDED AND NOT RUNNING. IV FLUSHED. PT AMBULATED TO BATHROOM AND COLLECTED URINE AT THIS TIME. SENT TO LAB VIA TUBE SYSTEM.
[2019-12-14 07:27] LABS: UDS - AMPHET NEGATIVE QUAL (NEGATIVE); UDS - BARB NEGATIVE QUAL (NEGATIVE); UDS - BENZO NEGATIVE QUAL (NEGATIVE); UDS - COCAINE NEGATIVE QUAL (NEGATIVE); UDS - OPIATE POSITIVE QUAL (NEGATIVE); UDS - PCP NEGATIVE QUAL (NEGATIVE); UDS - THC POSITIVE QUAL (NEGATIVE)
[2019-12-14 07:47] LABS: BILIRUBIN NEGATIVE (NEGATIVE); GLUCOSE 1000 mg/dL (NEGATIVE); KETONE MODERATE mg/dL (NEGATIVE); NITRITE NEGATIVE (NEGATIVE); SPECIFIC GRAVITY 1.015 (1.005-1.020); UROBILINOGEN NORMAL (NORMAL)
[2019-12-14 07:48] LABS: BACTERIA MODERATE /hpf (NEGATIVE); EPITHELIAL CELLS 0-5 /hpf (0-5); RED CELLS - URINE 0-5 /hpf (0-5); WHITE CELLS - URINE 0-5 /hpf (NEGATIVE)
--- NOTE | 2019-12-14 10:19 | NUR ---
RECEIVED PATIENT FROM ER VIA WHEELCHAIR, ACCOMPANIED BY STAFF. ALERT AND ORIENTED. BLIND. UP WITH ASSIST. RIGHT EJ, NS INFUSING @ 125ML/HR AND ZOFRAN @ 4.7ML/HR. SITE PATENT WITHOUT REDNESS OR SWELLING. DENIES ANY NEEDS AT THIS TIME. CALL LIGHT IN REACH. WILL CONTINUE TO MONITOR.
--- NOTE | 2019-12-14 17:58 | NUR ---
RESTING IN BED WITH EYES CLOSED. RESPIRATIONS EVEN AND UNLABORED. NO S/S OF ACUTE DISTRESS NOTED. CALL LIGHT IN REACH. WILL CONTINUE TO MONITOR.
--- NOTE | 2019-12-14 19:30 | NUR ---
PT LYING IN BED RESTING, AOX4. DENIES NAUSEA OR PAIN AT THIS TIME. IV RIGHT EJ INFUSING NS @ 125, ZOFRAN @ 4.7. MORPHINE ENGINEERING LAB TECHNICIAN SET UP. DENIES NEEDS. CL IN REACH, WILL CTM
[2019-12-15] VITALS: BP 125/78
[2019-12-15 04:00] VITALS: BP 112/71
[2019-12-15 05:43] LABS: BASOPHILS 0.4 % (0-2); EOSINOPHILS 3.5 % (0-7); HEMATOCRIT 35.7 % (36.0-48.0); IMMATURE GRANULOCYTES 0.2 % (0-5); LYMPHOCYTES 58.4 % (15-50); MCH 25.5 pg (26.0-34.0); MCHC 30.8 g/dL (31.0-37.0); MCV 82.8 fL (80.0-100.0); MEAN PLATELET VOLUME 11.8 fL (7.4-10.4); MONOCYTES 4.6 % (2-11); NEUTROPHILS 32.9 % (40-80); RBC 4.31 10x6/uL (4.00-5.40); RDW 14.9 % (11.5-14.5)
[2019-12-15 05:45] LABS: ALBUMIN 2.6 g/dL (3.4-5.0); ANION GAP 12.3 mmol/L (8-16); BILIRUBIN - TOTAL 0.22 mg/dL (0.2-1.3); CALCIUM 8.2 mg/dL (8.5-10.1); CARBON DIOXIDE 27.5 mmol/L (21.0-32.0); CREATININE - SERUM 1.2 mg/dL (0.6-1.3); PLATELET COUNT 171 10x3/uL (130-400); POTASSIUM - SERUM 3.8 mmol/L (3.5-5.1); PROTEIN - SERUM 5.9 g/dL (6.4-8.2); WBC 4.5 10x3/uL (4.8-10.8)
--- NOTE | 2019-12-15 06:05 | NUR ---
FSBS 56. PT STATES SHE HAS A LITTLE HEADACHE BUT NO OTHER SYMPTOMS. PT WANTED TO DRINK JUICE. GAVE PT 4 APPLE JUICE CUPS. ENCOURAGED PT TO CALL IF SHE DID NOT FEEL BETTER. WILL CTM
[2019-12-15 08:00] VITALS: BP 134/47
--- NOTE | 2019-12-15 09:00 | NUR ---
ATIENT ALERT AND ORIENTED AND BLIND. ABDOMEN SOFT WITH BOWEL SOUNDS NOTED X4 AND DENIES ANY NAUSEA AT THIS TIME. LUNGS CTA WITH GOOD SKIN TURGOR. IVF AND VOCATIONAL PSYCHOLOGIST AT PRESCRIBED SETTINGS. DENIES ANY PAIN OR DISCOMFORT WIT H GOOD ROM. ENCOURAGED TO USE CALL LIGHT FOR ASSSIT.
[2019-12-15 12:00] VITALS: BP 106/48
--- NOTE | 2019-12-15 16:13 | NUR ---
IV DISCONTINUED AND VERBALIZED UNDERSTANDING OF DISCHARGE INSTRUCTIONS. STABLE AT TIME OF DEPARTURE.
== END 2019-12-15 16:14 | disposition home or self-care (01) ==
LOC: D.ER 04:51 → D.MS 08:43 → OBSVTIME 16:00 → D.MS 12-15 16:14
PROVIDERS: Family Medicine; ADMIT Family Medicine; ATTEND Family Medicine
DX: R11.2 Nausea with vomiting, unspecified (principal); E86.0 Dehydration; H54.8 Legal blindness, as defined in USA; E11.22 Type 2 diabetes mellitus with diabetic chronic kidney disease; N18.9 Chronic kidney disease, unspecified; K21.9 Gastro-esophageal reflux disease without esophagitis; F32.9 Major depressive disorder, single episode, unspecified; G89.29 Other chronic pain; F17.203 Nicotine dependence unspecified, with withdrawal; F12.10 Cannabis abuse, uncomplicated

== ENCOUNTER 2020-01-08 15:01 | Inpatient (IN) | payer MEDICAID ==
[~2020-01-08] VITALS: Ht 162.6 cm; Wt 74.8 kg
[2020-01-08 15:30] VITALS: BP 129/58
[2020-01-08 16:24] LABS: BASOPHILS 0.3 % (0-2); EOSINOPHILS 0 % (0-7); HEMOGLOBIN 10.1 g/dL (12-16); IMMATURE GRANULOCYTES 0.4 % (0-5); LYMPHOCYTES 8.9 % (15-50); MCH 26.1 pg (26.0-34.0); MCHC 29.7 g/dL (31.0-37.0); MCV 87.9 fL (80.0-100.0); MEAN PLATELET VOLUME 10.9 fL (7.4-10.4); MONOCYTES 2.9 % (2-11); NEUTROPHILS 87.5 % (40-80); RBC 3.87 10x6/uL (4.00-5.40); RDW 16.5 % (11.5-14.5); WBC 7.9 10x3/uL (4.8-10.8)
[2020-01-08 17:03] LABS: PLATELET COUNT 330 10x3/uL (130-400)
[2020-01-08 18:31] LABS: UDS - AMPHET NEGATIVE QUAL (NEGATIVE); UDS - BARB NEGATIVE QUAL (NEGATIVE); UDS - BENZO NEGATIVE QUAL (NEGATIVE); UDS - COCAINE NEGATIVE QUAL (NEGATIVE); UDS - OPIATE NEGATIVE QUAL (NEGATIVE); UDS - PCP NEGATIVE QUAL (NEGATIVE); UDS - THC NEGATIVE QUAL (NEGATIVE)
[2020-01-08 18:36] LABS: BILIRUBIN NEGATIVE (NEGATIVE); GLUCOSE NEGATIVE (NEGATIVE); KETONE NEGATIVE (NEGATIVE); NITRITE NEGATIVE (NEGATIVE); UROBILINOGEN NORMAL (NORMAL)
--- NOTE | 2020-01-08 19:10 | NUR ---
REPORT TO SNEHA MARTIN
[2020-01-08 19:31] LABS: ANION GAP 40.8 mmol/L (8-16); CALCIUM 9.1 mg/dL (8.5-10.1); CREATININE - SERUM 1.9 mg/dL (0.6-1.3); POTASSIUM - SERUM 5.7 mmol/L (3.5-5.1)
[2020-01-08 19:34] LABS: ALBUMIN 3.1 g/dL (3.4-5.0); BILIRUBIN - TOTAL 0.65 mg/dL (0.2-1.3); MAGNESIUM - SERUM 2.1 mg/dL (1.8-2.4)
[2020-01-08 19:40] LABS: CARBON DIOXIDE 4.9 mmol/L (21.0-32.0)
[2020-01-08 19:52] VITALS: BP 92/33
--- NOTE | 2020-01-08 20:31 | NUR ---
NS BOLUS INITIATED AT 1907 FINISHED AT 1944.
[2020-01-08 21:00] VITALS: BP 121/63
[2020-01-08 22:00] VITALS: BP 108/70
[2020-01-08 23:00] VITALS: BP 114/68
[2020-01-09] VITALS (16 sets, daily range): BP systolic 96–157; BP diastolic 42–101; Ht 162.6 cm; Wt 74.8 kg
[2020-01-09 04:31] LABS: CALCIUM 8.5 mg/dL (8.5-10.1); CREATININE - SERUM 1.7 mg/dL (0.6-1.3)
[2020-01-09 04:33] LABS: ANION GAP 22.4 mmol/L (8-16); CARBON DIOXIDE 20.5 mmol/L (21.0-32.0); POTASSIUM - SERUM 3.9 mmol/L (3.5-5.1)
[2020-01-09 04:37] LABS: ALBUMIN 2.9 g/dL (3.4-5.0); BILIRUBIN - TOTAL 0.34 mg/dL (0.2-1.3); PROTEIN - SERUM 6.6 g/dL (6.4-8.2)
[2020-01-09 09:25] LABS: ANION GAP 16.9 mmol/L (8-16); CALCIUM 8.9 mg/dL (8.5-10.1); CARBON DIOXIDE 23.6 mmol/L (21.0-32.0); CREATININE - SERUM 1.8 mg/dL (0.6-1.3); MAGNESIUM - SERUM 1.7 mg/dL (1.8-2.4); POTASSIUM - SERUM 3.5 mmol/L (3.5-5.1)
--- NOTE | 2020-01-09 11:31 | NUR ---
0700 REPORT RECIEVED AND CARE ASSUMED OF PATIENT.. PT IS OBTUNDED , NOT RESPONDING TO STIMULI WILL SLIGHTLY GRIMMACE TO PAINFUL STIMULI... BP IS VERY LOW ... SUPPORTED BY PRESSORS.. LEVOPHED, FAIBO, AND VASOPRESSIN ALL MAXED OUT ON DOSAGES.. BP CUFF IS ON LEFT CALF DUE TO PT HAVING FISTULAS IN BILATERAL UPPER ARMS.. 0845 LAB IN TO DRAW ORDERED LAB 0900 NADYA FIBER OPTICS TECHNICIAN RENAL IN TO SEE PATIENT UPDATE IS GIVEN.. NADYA IS VERY WELL AQUAINTED WITH PATIENT
--- NOTE | 2020-01-09 11:50 | NUR ---
0930 NADYA SMITH CONTINUES IN UNIT.. PT RESPIRATIONS ARE AGONAL WITH HEART RATE DROPPING IN TO 80s WITH PACER SPIKES NOTED.. NADYA CALLED PATIENTS SISTER SHERRY WHO IS LISTED IN CHART EMERGENCY CANTACT EXPLAINED TO HER AT THIS TIME PATIENTS STATUS... DNR ORDER RECIEVED AT THIS TIME.. 0935 WIHTOUT RESPIRATIONS.. 1000 DR CALDWELL IN THE UNIT AND SEEING PATIENT.. [address] CALDWELL AT 1009AM FAMILY NOTIFIED.. SISTER JOYCELYN AND GRANDSON ON THEIR WAY IN TO HOSPITAL.. 1020 ASSISTANT SOFTBALL COACH CALLED MESSAGE LEFT.. 1030 CALLIE CONTI RETURNED CALL FOR ASSISTANT SOFTBALL COACH... INFO RELAYED TO HIM.. PT RELEASED.. 1035 SISTER SUSAN AND GRANDSON ENRIQUE IN TO SEE PATIENT.. 1045 HOME OBTAIED FROM FAMILY.. PT BELONGINGS GIVEN TO FAMILY WHITE GOLD COLERED RING WITH CLEAAR STONES REMOVED FROM PATIENT FINGER BY GRANDSON AND A GOLD COLORED WATCH REMOVED ALSO BOTH TAKED BY GRANDSON AND PT SISTER SUSAN,, 1105 FARMER CALLED RULED OUT DUE TO SEPSIS 1106 HOME CALLED NOHEMY IN [place]
--- NOTE | 2020-01-09 13:24 | NUR ---
0700 REPORT RECIEVED AND CARE ASSUMED OF PATIENT.. SEE FLOW SHEET FOR SHIFT ASSESMENT FINDINGS.. PT C/O PAIN AND NAUSEA.. REFUSES TO TAKE PO MEDS... 0845 UNABLE TO DRAW BLOOD FROM CVL LAB IN FOR PERIFERAL STICK 0900 PATIENT CONTINUES TO C/O PAIN DR NAYAK.. 1030 DR ARREOLA IN TO SEE PATIENT UPDATE IS GIVEN AND ORDERS RECIEVED.. INSULIN DRIP TURNED OFF AT THIS TIME PER DR ORDER.. AND SS INTERMEDIATE INITIATED.. 1045 PHENERGAN 25 MG IV GIVEN FOR NAUSEA PER ORDER.. 1100 X RAY OF ABDOMEN DONE PER ORDER 1200 FSBS DONE AND INSULIN 4 MG HUMULOG GIVEN.. 1300 LAB IN TO DRAW BLOOD TOLD TO DRAW PERIFERAL SINCE CVL DOES NOT DRAW... ZOFRAN DRIP INITIATED PER ORDER.. LINE RUNS BUT DOES NOT DRAW
[2020-01-09 15:02] LABS: ANION GAP 24.8 mmol/L (8-16); CALCIUM 8.9 mg/dL (8.5-10.1); CREATININE - SERUM 1.7 mg/dL (0.6-1.3); MAGNESIUM - SERUM 1.8 mg/dL (1.8-2.4); POTASSIUM - SERUM 3.7 mmol/L (3.5-5.1)
[2020-01-09 15:03] LABS: CARBON DIOXIDE 15.9 mmol/L (21.0-32.0)
--- NOTE | 2020-01-09 16:50 | NUR ---
1400 PT IS QUIET AT THIS TIME.. SHE STATES HER BACK HURTS AND SHE IS STILL NAUSEATED REFUES TO TAKE PO MEDS WANTS IV MEDS FOR STATED PAIN.. 1500 NOTED AT THIS TIME THAT PATIENT IS STICKING HER FINGERS IN HER MOUTH AND GAGGING HERSELF.. WHEN ASKED ABOUT IT SHE SAYS IT MAKES HER FEEL BETTER.. ?? 1545 DR ARREOLA CALLED , OK TO TRANSFER TO FLOOR... WHEN ASKED ABOUT PAIN MEDS SHE STATED SHE DID NOT WANT TO GIVE HER ANY IV AND WHEN HER NAUSEA LEAVES SHE CAN TAKE HER PO MEDS.. 1645 PHENERGAN GIVEN FOR NAUSEA..
--- NOTE | 2020-01-09 19:01 | NUR ---
RECEIVED PT FROM ICU VIA WHEELCHAIR. ALERT AND ORIENTED X4. SITUATED COMFORTABLY IN BED. PROVIDED WARM BLANKET, AND EMESIS BAG PROMPTLY UPON REQUEST. VITALS ASSESSED, ALL STABLE. RESTING IN BED, JUST REQUESTS IV PAIN MEIDCATION, DOCTOR IS NOT WANTING TO PRESCRIBE PAIN MEDICATIONS IV. DENIES ANY OTHER NEEDS. RESTING IN BED. WILL CONTINUE TO MONITOR.
--- NOTE | 2020-01-09 21:00 | NUR ---
PT LYING IN BED RESTING WITHOUT DISTRESS, AWAKENS TO VERBAL STIMULI. AOX4. RIGHT IJ INFUSING NS @ KVO, ZOFRAN DRIP. PT REFUSED HS MEDS STATING SHE WAS TOO NAUSEOUS. REQUESTED AND GIVEN PHENERGAN. WANTING IV PAIN MEDICATION, STATES SHE CANNOT TOLERATE NORCO. INFORMED PT THEY WERE NOT CHANGING HER PAIN MEDICATION. BS 321, GAVE 12 UNITS PER SS. DENIES NEEDS AT THIS TIME. CL IN REACH, WILL CTM
[2020-01-10] VITALS: BP 108/55
--- NOTE | 2020-01-10 00:30 | NUR ---
FSBS 197, PT REFUSED INSULIN. GAVE PT MULTIPLE ATTEMPTS TO TAKE IT. LEFT ROOM FOR 10 MINUTES AND CAME BACK AND AGAIN REMINDED PT SHE IS HERE D/T HIGH BS AND SHE AGAIN REFUSED INSULIN.
[2020-01-10 04:00] VITALS: BP 129/62
[2020-01-10 07:01] LABS: ALBUMIN 2.6 g/dL (3.4-5.0); ANION GAP 19.1 mmol/L (8-16); BILIRUBIN - TOTAL 0.36 mg/dL (0.2-1.3); CARBON DIOXIDE 18.4 mmol/L (21.0-32.0); CREATININE - SERUM 1.7 mg/dL (0.6-1.3); POTASSIUM - SERUM 3.5 mmol/L (3.5-5.1); PROTEIN - SERUM 6.1 g/dL (6.4-8.2)
--- NOTE | 2020-01-10 07:42 | NUR ---
RESTING IN BED, NO DISTRESS NOTED, CONT TO MONITOR SUGARS, COVERS OVER HEAD
[2020-01-10 07:44] LABS: BASOPHILS 0.1 % (0-2); EOSINOPHILS 0 % (0-7); HEMATOCRIT 27.8 % (36.0-48.0); HEMOGLOBIN 9.1 g/dL (12-16); IMMATURE GRANULOCYTES 0.2 % (0-5); MCH 26.2 pg (26.0-34.0); MCHC 32.7 g/dL (31.0-37.0); MEAN PLATELET VOLUME 10.4 fL (7.4-10.4); MONOCYTES 5.3 % (2-11); NEUTROPHILS 80.4 % (40-80); RBC 3.47 10x6/uL (4.00-5.40); RDW 16.6 % (11.5-14.5)
[2020-01-10 07:46] LABS: MCV 80.1 fL (80.0-100.0); PLATELET COUNT 259 10x3/uL (130-400); WBC 11.8 10x3/uL (4.8-10.8)
[2020-01-10 09:14] VITALS: BP 139/103
--- NOTE | 2020-01-10 13:31 | MORECARE ---
CASE MANAGEMENT DISCHARGE SUMMARY PATIENT: JAMES STAPLETON UNIT: [id number] ADM DATE: 01/08/20 AGE: 39 : 82 SEX: F ROOM/BED: D.2211 AUTHOR: PAPA HAN PHYSICIAN: REFERRING PHYSICIAN: ARIE ARREOLA MD DATE OF SERVICE: 01/10/20 Discharge Plan Patient Name: JAMES STAPLETON [facility] : 1980 Planned Disposition: Anticipated Discharge Date: Discharge Date: Expected LOS: Initial Reviewer: [email or web address] Initial Review Date: 01/08/2020 Generated: 01/10/20 2:31 pm Comments DCP- Discharge Planning Updated by [email or web address]: Ritu Shepherd on 01/10/20 12:[address] attempted to see patient, but she was asleep. CM will try again at a later time Patient Name: JAMES STAPLETON Page 57454 at 1331 All edits/amendments must be made on the electronic document DICTATION DATE: 01/10/20 1331 COMMODITIES CLERK: EUGENE 01/10/20 1331 RPT#: [id number] DC DATE: STATUS: ADM IN [facility] [address] [place] [address] END OF REPORT
[2020-01-10 13:59] VITALS: BP 163/87
[2020-01-10 17:10] VITALS: BP 125/70
--- NOTE | 2020-01-10 19:40 | NUR ---
PT LYING IN BED RESTING WITHOUT DISTRESS, FRIEND AT BEDSIDE. PROVIDED PT WITH NEW GOWN AND SHOWER SUPPLIES. COVERED CVL. FRIEND ASSISTED PT WITH SHOWER. LINENS CHANGED. PT DENIES OTHER NEEDS AT THIS TIME. WILL CTM
[2020-01-10 20:00] VITALS: BP 137/65
--- NOTE | 2020-01-10 20:00 | NUR ---
PT EATING ORANGE SHERBERT AT THIS TIME. STATES NAUSEA IS BETTER
--- NOTE | 2020-01-10 23:30 | NUR ---
PT REQUESTED AND GIVEN CHICKEN NOODLE SOUP
[2020-01-11] VITALS: BP 133/52
[2020-01-11 04:00] VITALS: BP 103/57
--- NOTE | 2020-01-11 04:00 | NUR ---
PT REQUESTED AND GIVEN MORPHINE FOR PAIN 04/11 IN ABD. FSBS 100. PT REQUESTED AND GIVEN APPLE JUICE TO DRINK IF SHE FEELS IT IS LOW. DENIES OTHER NEEDS. AT THIS TIME. CL IN REACH, WILL CTM
[2020-01-11 05:44] LABS: ALBUMIN 3.1 g/dL (3.4-5.0); ANION GAP 12.9 mmol/L (8-16); BILIRUBIN - TOTAL 0.35 mg/dL (0.2-1.3); CALCIUM 8.7 mg/dL (8.5-10.1); CREATININE - SERUM 1.3 mg/dL (0.6-1.3); POTASSIUM - SERUM 3.5 mmol/L (3.5-5.1)
[2020-01-11 05:51] LABS: CARBON DIOXIDE 27.6 mmol/L (21.0-32.0)
[2020-01-11 05:55] LABS: HEMATOCRIT 33.2 % (36.0-48.0); LYMPHOCYTES 33.9 % (15-50); MCH 27.3 pg (26.0-34.0); MCHC 33.1 g/dL (31.0-37.0); MEAN PLATELET VOLUME 10.3 fL (7.4-10.4); NEUTROPHILS 57.4 % (40-80); RBC 4.03 10x6/uL (4.00-5.40); RDW 18.4 % (11.5-14.5)
[2020-01-11 06:00] LABS: MCV 82.4 fL (80.0-100.0); PLATELET COUNT 168 10x3/uL (130-400); WBC 7.6 10x3/uL (4.8-10.8)
--- NOTE | 2020-01-11 07:00 | NUR ---
PT IS RESTING IN BED WITH EYES CLOSED. RESPIRATIONS ARE EVEN AND UNLABORED. PT IS EASILY AROUSED WITH VERBAL STIMULATION. PT IS AAOX 4 UPON AROUSAL. PT REPORTS PRESENCE OF PAIN/N AT THIS TIME. WILL ADDRESS. SEE EMAR. CENTRAL LINE TO RIGHT IJ INFUSING PER ORDER WITHOUT DIFFICULTY. PT REPORTS LAST BM ON 01/07/2020. BS ARE HYPOACTIVE X 4. PT REPORTS THAT SHE IS PASSING GAS. PT DENIES PRESENCE OF TENDERNESS UPON ABDOMINAL PALPATION. BED IS IN THE LOWEST POSITION. CALL LIGHT AND BEDSIDE TABLE ARE WITHIN REACH. SIDE RAILS X 2. PT DENIES FURTHER NEEDS. WILL CONT TO MONITOR.
[2020-01-11 09:12] VITALS: BP 136/85
--- NOTE | 2020-01-11 12:54 | MORECARE ---
CASE MANAGEMENT DISCHARGE SUMMARY PATIENT: JAMES STAPLETON UNIT: [id number] ADM DATE: 01/08/20 AGE: 39 : 82 SEX: F ROOM/BED: D.2211 AUTHOR: PAPA HAN PHYSICIAN: REFERRING PHYSICIAN: ARIE ARREOLA MD DATE OF SERVICE: 01/11/20 Discharge Plan Patient Name: JAMES STAPLETON Facility: [facility] : 1980 Planned Disposition: Home with Home Health Anticipated Discharge Date: Discharge Date: Expected LOS: Initial Reviewer: [email or web address] Initial Review Date: 01/08/2020 Generated: 01/11/20 1:53 pm DCP- Discharge Planning Updated by [id number]: Ritu Shepherd on 01/10/20 12:[address] attempted to see patient, but she was asleep. CM will try again at a later time DCPIA - Discharge Planning Initial Assessment Updated by [email or web address]: Ritu Shepherd on 01/11/20 12:53 pm * Is the patient Alert and Oriented? Yes * How many steps to enter\exit or inside your home? 14 * PCP IGNACIA VASQUEZ * Pharmacy [facility] [place] * Preadmission Environment Home Alone * ADLs Partial Dependent * Partial ADLs (Assistance needed) Medication Management * Equipment Cane * List name and contact numbers for known caregivers / representatives who currently or will assist patient after discharge: DEE BEST (BOYFRIEND) [phone] * Verbal permission to speak to the caregivers and representatives has been obtained from the patient. N/A * Community resources currently utilized None * Additional services required to return to the preadmission environment? Yes * Can the patient safely return to the preadmission environment? Yes * Has this patient been hospitalized within the prior 30 days at any hospital? Yes Last DP export: 01/10/20 12:31 p Patient Name: JAMES STAPLETON Page 08265 at 1254 All edits/amendments must be made on the electronic document DICTATION DATE: 01/11/20 1253 ARBORIST REPRESENTATIVE: EUGENE 01/11/20 1253 RPT#: [id number] DC DATE: STATUS: ADM IN [facility] [address] [place] [address] END OF REPORT
--- NOTE | 2020-01-11 13:07 | MORECARE ---
CASE MANAGEMENT DISCHARGE SUMMARY PATIENT: JAMES STAPLETON UNIT: [id number] ADM DATE: 01/08/20 AGE: 39 : 82 SEX: F ROOM/BED: D.2211 AUTHOR: PAPA HAN PHYSICIAN: REFERRING PHYSICIAN: ARIE ARREOLA MD DATE OF SERVICE: 01/11/20 Discharge Plan Patient Name: JAMES STAPLETON Facility: [facility]:[place] : 1980 Planned Disposition: Home with Home Health Anticipated Discharge Date: Discharge Date: Expected LOS: Initial Reviewer: [email or web address] Initial Review Date: 01/08/2020 Generated: 01/11/20 2:07 pm Comments DCP- Discharge Planning Updated by [id number]: Ritu Shepherd on 01/11/20 12:[address] Patient Name: JAMES STAPLETON Admission Status: ER Accout number: [id number] Admission Date: 01-08-2020 : 1980 Admission Diagnosis:TYPE 1 DIABETES MELLITUS WITH KETOACIDOSIS WITHOUT COMA Attending: ARIE ARREOLA Current LOS: 3 Anticipated DC Date: Planned Disposition: Home with Home Health Primary Insurance: MEDICAID [place] Discharge Planning Comments: CM met with patient to complete initial dc planning assessment. CM educated patient on the CM role and verbal consent given by patient to complete assessment. Patient lives at home by herself and she states her boyfriend lives downstairs. At discharge patient plans to return home and feels this is a safe discharge. Her boyfriend will be her milk pickup driver home. CM discussed availability of home health, rehab services, and medical equipment. She is blind and uses a cane. She would like home health and information about aides help. [facility], I will send referrals to both places. She has a glucometer that talks to her she does NOT have a insulin pump. She uses a click pen for dosing . Patient denied known discharge needs at this time. CM will continue to follow and will assist as needed with dc plans/needs. Grounds Person: Ritu Shepherd DCP- Discharge Planning Updated by [email or web address]: Ritu Shepherd on 01/10/20 12:[address] attempted to see patient, but she was asleep. CM will try again at a later time DCPIA - Discharge Planning Initial Assessment Updated by [email or web address]: Ritu Shepherd on 01/11/20 12:53 pm * Is the patient Alert and Oriented? Yes * How many steps to enter\exit or inside your home? 14 * PCP IGNACIA VASQUEZ * Pharmacy [facility] [address] * Preadmission Environment Home Alone * ADLs Partial Dependent * Partial ADLs (Assistance needed) Medication Management * Equipment Cane * List name and contact numbers for known caregivers / representatives who currently or will assist patient after discharge: DEE BEST (BOYFRIEND) [phone] * Verbal permission to speak to the caregivers and representatives has been obtained from the patient. N/A * Community resources currently utilized None * Additional services required to return to the preadmission environment? Yes * Can the patient safely return to the preadmission environment? Yes * Has this patient been hospitalized within the prior 30 days at any hospital? Yes Last DP export: 01/11/20 11:54 a Patient Name: JAMES STAPLETON Page 63363 at 1307 All edits/amendments must be made on the electronic document DICTATION DATE: 01/11/20 1307 MILKING MACHINE TECHNICIAN: EUGENE 01/11/20 1307 RPT#: [id number] DC DATE: STATUS: ADM IN [facility] [address] [place] [address] END OF REPORT
--- NOTE | 2020-01-11 13:19 | MORECARE ---
CASE MANAGEMENT DISCHARGE SUMMARY PATIENT: JAMES STAPLETON UNIT: [id number] ADM DATE: 01/08/20 AGE: 39 : 82 SEX: F ROOM/BED: D.2211 AUTHOR: PAPA HAN PHYSICIAN: REFERRING PHYSICIAN: ARIE ARREOLA MD DATE OF SERVICE: 01/11/20 Discharge Plan Patient Name: JAMES STAPLETON Facility: [facility]:[place] : 1980 Planned Disposition: Home with Home Health Anticipated Discharge Date: Discharge Date: Expected LOS: Initial Reviewer: [email or web address] Initial Review Date: 01/08/2020 Generated: 01/11/20 2:19 pm Comments DCP- Discharge Planning Updated by [id number]: Ritu Shepherd on 01/11/20 12:[address] Patient Name: JAMES STAPLETON Admission Status: ER Accout number: [id number] Admission Date: 01-08-2020 : 1980 Admission Diagnosis:TYPE 1 DIABETES MELLITUS WITH KETOACIDOSIS WITHOUT COMA Attending: ARIE ARREOLA Current LOS: 3 Anticipated DC Date: Planned Disposition: Home with Home Health Primary Insurance: MEDICAID [place] Discharge Planning Comments: CM met with patient to complete initial dc planning assessment. CM educated patient on the CM role and verbal consent given by patient to complete assessment. Patient lives at home by herself and she states her boyfriend lives downstairs. At discharge patient plans to return home and feels this is a safe discharge. Her boyfriend will be her driver operator home. CM discussed availability of home health, rehab services, and medical equipment. She is blind and uses a cane. She would like home health and information about aides help. [facility], I will send referrals to both places. She has a glucometer that talks to her she does NOT have a insulin pump. She uses a click pen for dosing . Patient denied known discharge needs at this time. CM will continue to follow and will assist as needed with dc plans/needs. Outcomes Analyst: Ritu Shepherd DCP- Discharge Planning Updated by [email or web address]: Ritu Shepherd on 01/10/20 12:[address] attempted to see patient, but she was asleep. CM will try again at a later time DCPIA - Discharge Planning Initial Assessment Updated by [email or web address]: Ritu Shepherd on 01/11/20 12:53 pm * Is the patient Alert and Oriented? Yes * How many steps to enter\exit or inside your home? 14 * PCP IGNACIA VASQUEZ * Pharmacy [facility] [place] * Preadmission Environment Home Alone * ADLs Partial Dependent * Partial ADLs (Assistance needed) Medication Management * Equipment Cane * List name and contact numbers for known caregivers / representatives who currently or will assist patient after discharge: DEE BEST (BOYFRIEND) [phone] * Verbal permission to speak to the caregivers and representatives has been obtained from the patient. N/A * Community resources currently utilized None * Additional services required to return to the preadmission environment? Yes * Can the patient safely return to the preadmission environment? Yes * Has this patient been hospitalized within the prior 30 days at any hospital? Yes External Providers External Provider: [facility] Next Contact Date: Service Request Date: Service Type: Resolution: Reviewer: Comments: External Provider: [facility] Next Contact Date: Service Request Date: Service Type: Resolution: Reviewer: Comments: Last DP export: 01/11/20 12:07 p Patient Name: JAMES STAPLETON Page 31309 at 1319 All edits/amendments must be made on the electronic document DICTATION DATE: 01/11/20 1319 CASH CONTROL SPECIALIST: EUGENE 01/11/20 1319 RPT#: [id number] DC DATE: STATUS: ADM IN [facility] [address] [place] [address] END OF REPORT
[2020-01-11 13:20] VITALS: BP 144/85
--- NOTE | 2020-01-11 14:07 | MORECARE ---
CASE MANAGEMENT DISCHARGE SUMMARY PATIENT: JAMES STAPLETON UNIT: [id number] ADM DATE: 01/08/20 AGE: 39 : 82 SEX: F ROOM/BED: D.2211 AUTHOR: PAPA HAN PHYSICIAN: REFERRING PHYSICIAN: ARIE ARREOLA MD DATE OF SERVICE: 01/11/20 Discharge Plan Patient Name: JAMES STAPLETON Facility: [facility]:[place] : 1980 Planned Disposition: Home with Home Health Anticipated Discharge Date: Discharge Date: Expected LOS: Initial Reviewer: [email or web address] Initial Review Date: 01/08/2020 Generated: 01/11/20 3:06 pm Comments DCP- Discharge Planning Updated by [email or web address]: Ritu Shepherd on 01/11/20 1:[address] Enr[facility] Called back and stated that she is Eligible for Help with [facility] and [facility] will be contacting her and starting the process to get her signed up for services DCP- Discharge Planning Updated by [email or web address]: Ritu Shepherd on 01/11/20 1:[address] I called Enrrique with [facility] and let him know about the referral and I also called [facility] and sent a referral there. CM to follow DCP- Discharge Planning Updated by [email or web address]: Ritu Shepherd on 01/11/20 12:[address] Patient Name: JAMES STAPLETON Admission Status: ER Accout number: [id number] Admission Date: 01-08-2020 : 1980 Admission Diagnosis:TYPE 1 DIABETES MELLITUS WITH KETOACIDOSIS WITHOUT COMA Attending: ARIE ARREOLA Current LOS: 3 Anticipated DC Date: Planned Disposition: Home with Home Health Primary Insurance: MEDICAID [place] Discharge Planning Comments: CM met with patient to complete initial dc planning assessment. CM educated patient on the CM role and verbal consent given by patient to complete assessment. Patient lives at home by herself and she states her boyfriend lives downstairs. At discharge patient plans to return home and feels this is a safe discharge. Her boyfriend will be her stud driver home. CM discussed availability of home health, rehab services, and medical equipment. She is blind and uses a cane. She would like home health and information about aides help. [facility] for [facility], I will send referrals to both places. She has a glucometer that talks to her she does NOT have a insulin pump. She uses a click pen for dosing . Patient denied known discharge needs at this time. CM will continue to follow and will assist as needed with dc plans/needs. Plastics Plater: Ritu Shepherd DCP- Discharge Planning Updated by [id number]: Ritu Shepherd on 01/10/20 12:[address] attempted to see patient, but she was asleep. CM will try again at a later time DCPIA - Discharge Planning Initial Assessment Updated by [id number]: Ritu Shepherd on 01/11/20 12:53 pm * Is the patient Alert and Oriented? Yes * How many steps to enter\exit or inside your home? 14 * PCP IGNACIA VASQUEZ * Pharmacy [facility] [place] * Preadmission Environment Home Alone * ADLs Partial Dependent * Partial ADLs (Assistance needed) Medication Management * Equipment Cane * List name and contact numbers for known caregivers / representatives who currently or will assist patient after discharge: DEE BEST (BOYFRIEND) [phone] * Verbal permission to speak to the caregivers and representatives has been obtained from the patient. N/A * Community resources currently utilized None * Additional services required to return to the preadmission environment? Yes * Can the patient safely return to the preadmission environment? Yes * Has this patient been hospitalized within the prior 30 days at any hospital? Yes Coverage Notice Reviewer: [id number] - Ritu Shepherd Notice Issued Date-Time: 01/11/2020 13:00 Notice Type: Patient Choice Letter Notice Delivered To: Patient Relationship to Patient: Regulator Mechanic Name: Delivery Method: HAND - Hand Delivered Geno Days: Prior Verbal Notification: Recipient Understood Notice: Yes Recipient Signature: Yes Med Rec Note Co-signed by Attending: Coverage Notice Comment: abraham for [facility] Last DP export: 01/11/20 12:20 p Patient Name: JAMES STAPLETON Page 46679 at 1407 All edits/amendments must be made on the electronic document DICTATION DATE: 01/11/201405 SKEIN DRIER: EUGENE 01/11/20 140 RPT#: [id number] DC DATE: STATUS: ADM IN [facility] [address] [facility] [place] [address] END OF REPORT
--- NOTE | 2020-01-11 16:35 | NUR ---
WILMA PHAN APRN PAGED TO NOTIFY PT OF HYPOGLYCEMIA. WILL WAIT FOR PAGE. PT BROUGHT MILK, VITALIY CRACKERS AND ICE CREAM TO ASSIST WITH BLOOD GLUCOSE UNTIL FURTHER ORDERS RECD.
[2020-01-11 16:45] VITALS: BP 130/67
--- NOTE | 2020-01-11 16:56 | NUR ---
WILMA SOUSA APRN CALLED AND TELEPHONE ORDERS RECD TO HOLD AM DOSE OF LANTUS. ORDER PLACED.
--- NOTE | 2020-01-11 16:57 | NUR ---
PT FSBS 51. WILMA SOUSA APRN NOTIFIED. TELEPHONE ORDERS RECD TO ADMINISTER (1) AMP OF D50 NOW. RECHECK BLOOD GLUCOSE 30 MINUTES POST ADMINISTRATION. ADD HYPOGLYCEMIC PROTOCOL TO PT SEP. ORDERS PLACED. SEE EMAR.
--- NOTE | 2020-01-11 17:35 | NUR ---
FSBS 175. PT IS RESTING IN BED WITH EYES CLOSED RESPIRATIONS ARE EVEN AND UNLABORED. PT IS AROUSABLE WITH VERBAL STIMULATION AND IS AAO X 4 UPON AROUSAL. BED IS IN THE LOWEST POSITION. CALL LIGHT AND BEDSIDE TABLE ARE WITHIN REACH. SIDE RAILS X 2. PT DENIES FURTHER NEEDS. WILL CONT TO MONITOR.
[2020-01-11 20:00] VITALS: BP 152/92
--- NOTE | 2020-01-11 20:00 | NUR ---
PT LYING IN BED RESTING WITH EYES CLOSED, WITHOUT DISTRESS. AOX4. RIGHT IJ INFUSING NS @ KVO AND ZOFRAN DRIP. FSBS 442. PT HAD D50 AT LAST BS CHECK AFTER BEING LOW AND HAD SNACKS. GAVE 20 UNITS INSULIN. ENCOURAGED PT TO CALL IF BS FEELING LOW, VERBALIZED UNDERSTANDING. PT SIGNIFICANT OTHER ASSISTED PT WTIH SHOWER. AFTER SHOWER PT STATES ABD PAIN 8/10 AND NAUSEOUS. GAVE ZOFRAN AND MORPHINE ORDERED. DENIES OTHER NEEDS AT THIS TIME. CL IN REACH, WILL CTM
[2020-01-12] VITALS: BP 114/61
--- NOTE | 2020-01-12 00:30 | NUR ---
FSBS 86, GAVE PT APPLE JUICE AND PT REQUESTED ICE CREAM. SITTING ON SIFE OF BED EATING. DENIES OTHER NEEDS, WILL CTM
--- NOTE | 2020-01-12 02:16 | NUR ---
PT REQUESTED MORPHINE FOR PAIN 05/11, GAVE ORDERED. PT LYING IN BED TALKING ON CELL PHONE. DENIES OTHER NEEDS. WILL CTM
[2020-01-12 04:00] VITALS: BP 119/66
[2020-01-12 06:27] LABS: BASOPHILS 0.2 % (0-2); EOSINOPHILS 0.4 % (0-7); HEMATOCRIT 29.6 % (36.0-48.0); HEMOGLOBIN 9.3 g/dL (12-16); LYMPHOCYTES 42.4 % (15-50); MCH 25.6 pg (26.0-34.0); MCHC 31.4 g/dL (31.0-37.0); MCV 81.5 fL (80.0-100.0); MEAN PLATELET VOLUME 10.8 fL (7.4-10.4); MONOCYTES 9.8 % (2-11); NEUTROPHILS 47.2 % (40-80); PLATELET COUNT 200 10x3/uL (130-400); RBC 3.63 10x6/uL (4.00-5.40); RDW 16.8 % (11.5-14.5)
[2020-01-12 06:36] LABS: WBC 4.9 10x3/uL (4.8-10.8)
[2020-01-12 06:51] LABS: ALBUMIN 2.8 g/dL (3.4-5.0); ANION GAP 10.9 mmol/L (8-16); BILIRUBIN - TOTAL 0.27 mg/dL (0.2-1.3); CALCIUM 8.3 mg/dL (8.5-10.1); CARBON DIOXIDE 27.6 mmol/L (21.0-32.0); CREATININE - SERUM 1.2 mg/dL (0.6-1.3); POTASSIUM - SERUM 3.5 mmol/L (3.5-5.1); PROTEIN - SERUM 5.9 g/dL (6.4-8.2)
--- NOTE | 2020-01-12 07:38 | NUR ---
RESTING IN BED, EASILY AROUSED TO SPEECH, ALERT AND ORIENTED. RIGHT SIDE IJ PRESENT RUNNING NS @ KVO, ZOPHRAN DRIP PRESENT AT 4.7ML. NO S/S OF DISTRESS CURRENTLY, DENIES CURRENT NEEDS, WILL CONT TO MONITOR.
[2020-01-12 09:08] VITALS: BP 157/99
--- NOTE | 2020-01-12 10:30 | NUR ---
SPOKE WITH RENÉE FRIED APRN ABOUT INSULIN DOSING AND PT N/V, INFORMED TO LOWER LANTUS TO 15UNITS AND NOT GIVE UNTIL AFTER KUB HAS BEEN COMPLETED. WILL CONT TO MONITOR.
[2020-01-12 12:15] VITALS: BP 105/55
[2020-01-12 16:59] VITALS: BP 141/61
[2020-01-12 20:00] VITALS: BP 119/80
[2020-01-13] VITALS: BP 140/84
[2020-01-13 04:00] VITALS: BP 143/87
--- NOTE | 2020-01-13 04:36 | NUR ---
I have reviewed this patient and I concur with the Shift Assessment completed by the Licensed Practical Nurse today this shift.
[2020-01-13 07:10] LABS: HEMATOCRIT 27.1 % (36.0-48.0); HEMOGLOBIN 8.5 g/dL (12-16); MCH 25.5 pg (26.0-34.0); MCHC 31.4 g/dL (31.0-37.0); MCV 81.4 fL (80.0-100.0); MEAN PLATELET VOLUME 10.8 fL (7.4-10.4); PLATELET COUNT 187 10x3/uL (130-400); RBC 3.33 10x6/uL (4.00-5.40); RDW 16.7 % (11.5-14.5); WBC 4.8 10x3/uL (4.8-10.8)
[2020-01-13 07:23] LABS: ALBUMIN 2.5 g/dL (3.4-5.0); BILIRUBIN - TOTAL 0.14 mg/dL (0.2-1.3); CALCIUM 8.1 mg/dL (8.5-10.1); CARBON DIOXIDE 32.1 mmol/L (21.0-32.0); CREATININE - SERUM 1.2 mg/dL (0.6-1.3); POTASSIUM - SERUM 3.1 mmol/L (3.5-5.1); PROTEIN - SERUM 5.4 g/dL (6.4-8.2)
[2020-01-13 07:45] LABS: EOSINOPHILS 1 % (0-7); LYMPHOCYTES 50 % (15-50); NEUTROPHILS 49 % (40-80); PLATELET ESTIMATE NORMAL
[2020-01-13 07:46] LABS: SCHISTOCYTES OCC
[2020-01-13 07:54] VITALS: BP 121/78
--- NOTE | 2020-01-13 08:00 | NUR ---
ALERT AND ORIENTED X4. BLOOD SUGARS MONITORED AND TREATED PER SLIDING SCALE. PATIENT POTASSIUM RELACED PER PROTOCOL WITH NO S/S OF HYPOKALEMIA NOTED. RT. IJ IVF INFUSING AT PRESCRIBED RATE. PATIENT IS ABLE TO EAT BREAKFAST DUE TO IMPAIRED VISION WITH DET UP ASSIST ONLY. HYDROCODONE GIVEN FOR GENERALIZED PAIN PRN. ENCOURAGED TO USE CALL LIGHT FOR ASSSIT.
[2020-01-13] MEDS ORDERED: COLACE100 MG PO (10:59)
[2020-01-13] MEDS ORDERED: ZOFRAN ODT4 MG/UDTAB PO (11:19)
--- NOTE | 2020-01-13 11:34 | MORECARE ---
CASE MANAGEMENT DISCHARGE SUMMARY PATIENT: JAMES STAPLETON UNIT: [id number] ADM DATE: 01/08/20 AGE: 39 : 82 SEX: F ROOM/BED: D.2211 AUTHOR: GUILLEDOC PHYSICIAN: REFERRING PHYSICIAN: ARIE ARREOLA MD DATE OF SERVICE: 01/13/20 Discharge Plan Patient Name: JAMES STAPLETON Facility: [facility]:[place] : 1980 Planned Disposition: Home with Home Health Anticipated Discharge Date: Discharge Date: Expected LOS: Initial Reviewer: [email or web address] Initial Review Date: 01/08/2020 Generated: 01/13/20 12:34 pm Comments DCP- Discharge Planning Updated by [email or web address]: Yahaira Patel on 01/13/20 10:[address] Patient Name: JAMES STAPLETON Encounter No: [id number] : 1980 Primary Insurance: MEDICAID [place] Anticipated DC Date: Planned Disposition: Home with Home Health External Planned Provider: : DCP follow-up note: CM met with pt to discuss final dc plan. Pt will have [facility] ([phone]) services and Tegan from [facility] ([phone]) will be calling patient to initiate start of services. Patient in agreement with discharge plan. No changes to plan. Yahaira Patel MSN,RN,CM DCP- Discharge Planning Updated by [id number]: Ritu Shepherd on 01/11/20 1:[address] Enr[facility] Called back and stated that she is Eligible for Help with [facility] and [facility] will be contacting her and starting the process to get her signed up for services DCP- Discharge Planning Updated by [email or web address]: Ritu Shepherd on 01/11/20 1:[address] I called Enrrique with [facility] and let him know about the referral and I also called [facility] and sent a referral there. CM to follow DCP- Discharge Planning Updated by [email or web address]: Ritu Shepherd on 01/11/20 12:[address] Patient Name: JAMES STAPLETON Admission Status: ER Accout number: [id number] Admission Date: 01-08-2020 : 1980 Admission Diagnosis:TYPE 1 DIABETES MELLITUS WITH KETOACIDOSIS WITHOUT COMA Attending: ARIE ARREOLA Current LOS: 3 Anticipated DC Date: Planned Disposition: Home with Home Health Primary Insurance: MEDICAID [place] Discharge Planning Comments: CM met with patient to complete initial dc planning assessment. CM educated patient on the CM role and verbal consent given by patient to complete assessment. Patient lives at home by herself and she states her boyfriend lives downstairs. At discharge patient plans to return home and feels this is a safe discharge. Her boyfriend will be her driver/merchandiser home. CM discussed availability of home health, rehab services, and medical equipment. She is blind and uses a cane. She would like home health and information about aides help. [facility] for [facility], I will send referrals to both places. She has a glucometer that talks to her she does NOT have a insulin pump. She uses a click pen for dosing . Patient denied known discharge needs at this time. CM will continue to follow and will assist as needed with dc plans/needs. Glass Cut Off Tender: Ritu Shepherd DCP- Discharge Planning Updated by [id number]: Ritu Shepherd on 01/10/20 12:[address] attempted to see patient, but she was asleep. CM will try again at a later time DCPIA - Discharge Planning Initial Assessment Updated by [id number]: Ritu Shepherd on 01/11/20 12:53 pm * Is the patient Alert and Oriented? Yes * How many steps to enter\exit or inside your home? 14 * PCP IGNACIA VASQUEZ * Pharmacy [facility] * Preadmission Environment Home Alone * ADLs Partial Dependent * Partial ADLs (Assistance needed) Medication Management * Equipment Cane * List name and contact numbers for known caregivers / representatives who currently or will assist patient after discharge: DEE BEST (BOYFRIEND) [phone] * Verbal permission to speak to the caregivers and representatives has been obtained from the patient. N/A * Community resources currently utilized None * Additional services required to return to the preadmission environment? Yes * Can the patient safely return to the preadmission environment? Yes * Has this patient been hospitalized within the prior 30 days at any hospital? Yes Coverage Notice Reviewer: [email or web address] - Ritu Shepherd Notice Issued Date-Time: 01/11/2020 13:00 Notice Type: Patient Choice Letter Notice Delivered To: Patient Relationship to Patient: Medical Reception Specialist Name: Delivery Method: HAND - Hand Delivered Geno Days: Prior Verbal Notification: Recipient Understood Notice: Yes Recipient Signature: Yes Med Rec Note Co-signed by Attending: Coverage Notice Comment: abraham for [facility] Last DP export: 01/11/20 1:07 p Patient Name: JAMES STAPLETON Page 69440 at 1134 All edits/amendments must be made on the electronic document DICTATION DATE: 01/13/20 1134 DISCOTHEQUE DANCER: EUGENE 01/13/20 1134 RPT#: [id number] DC DATE: STATUS: ADM IN [facility] [address] [place] [address] END OF REPORT
[2020-01-13 12:06] VITALS: BP 100/43
--- NOTE | 2020-01-13 15:37 | NUR ---
CENTRAL LINE DISCONTINUED FROM RIGHT JUGULAR WITH COMPRESSION DRESSING APPLIED. VERBALIZED UNDERSTANDING OF DISCHARGE INSTRUCTIONS. STABLE AT TIME OF DEPARTURE UNDER CARE OF CAREGIVER
--- NOTE | 2020-01-15 08:58 | MORECARE ---
CASE MANAGEMENT DISCHARGE SUMMARY PATIENT: JAMES STAPLETON UNIT: [id number] ADM DATE: 01/08/20 AGE: 39 : 82 SEX: F ROOM/BED: D.2211 AUTHOR: GUILLEDOC PHYSICIAN: REFERRING PHYSICIAN: ARIE ARREOLA MD DATE OF SERVICE: 01/15/20 Discharge Plan Patient Name: JAMES STAPLETON Facility: [facility]:[place] : 1980 Planned Disposition: Home with Home Health Anticipated Discharge Date: Discharge Date: 01/13/2020 Expected LOS: Initial Reviewer: [email or web address] Initial Review Date: 01/08/2020 Generated: 01/15/20 9:57 am Comments DCP- Discharge Planning Updated by [email or web address]: Yahaira Patel on 01/13/20 10:[address] Patient Name: JAMES STAPLETON Encounter No: [id number] : 1980 Primary Insurance: MEDICAID [place] Anticipated DC Date: Planned Disposition: Home with Home Health External Planned Provider: : DCP follow-up note: CM met with pt to discuss final dc plan. Pt will have [facility] ([phone]) services and Tegan from [facility] ([phone]) will be calling patient to initiate start of services. Patient in agreement with discharge plan. No changes to plan. Yahaira Patel MSN,RN,CM DCP- Discharge Planning Updated by [email or web address]: Ritu Shepherd on 01/11/20 1:[address] Enrrique Called back and stated that she is Eligible for Help with [facility] and Betsy will be contacting her and starting the process to get her signed up for services DCP- Discharge Planning Updated by [email or web address]: Ritu Shepherd on 01/11/20 1:[address] I called Enrrique with [facility] and let him know about the referral and I also called [facility] and sent a referral there. 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 CM educated patient on the CM role and verbal consent given by patient to complete assessment. Patient lives at home by herself and she states her boyfriend lives downstairs. At discharge patient plans to return home and feels this is a safe discharge. 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 CM discussed availability of home health, rehab services, and medical equipment. She is blind and uses a cane. She would like home health and information about aides help. AB[facility] for [facility], I will send referrals to both places. She has a glucometer that talks to her she does NOT have a insulin pump. She uses a click pen for dosing . Patient denied known discharge needs at this time. CM will continue to follow and will assist as needed with dc plans/needs. Blade Changer: Ritu Shepherd DCP- Discharge Planning Updated by [email or web address]: Ritu Shepherd on 01/10/20 12:[address] attempted to see patient, but she was asleep. CM will try again at a later time DCPIA - Discharge Planning Initial Assessment Updated by [email or web address]: Ritu Shepherd on 01/11/20 12:53 pm * Is the patient Alert and Oriented? Yes * How many steps to enter\exit or inside your home? 14 * PCP IGNACIA VASQUEZ * Pharmacy [facility] * Preadmission Environment Home Alone * ADLs Partial Dependent * Partial ADLs (Assistance needed) Medication Management * Equipment Cane * List name and contact numbers for known caregivers / representatives who currently or will assist patient after discharge: DEE BEST (BOYFRIEND) [phone] * Verbal permission to speak to the caregivers and representatives has been obtained from the patient. N/A * Community resources currently utilized None * Additional services required to return to the preadmission environment? Yes * Can the patient safely return to the preadmission environment? Yes * Has this patient been hospitalized within the prior 30 days at any hospital? Yes Coverage Notice Reviewer: [email or web address] - Ritu Shepherd Notice Issued Date-Time: 01/11/2020 13:00 Notice Type: Patient Choice Letter Notice Delivered To: Patient Relationship to Patient: Car Ferry Master Name: Delivery Method: HAND - Hand Delivered Geno Days: Prior Verbal Notification: Recipient Understood Notice: Yes Recipient Signature: Yes Med Rec Note Co-signed by Attending: Coverage Notice Comment: abraham for [facility] Last DP export: 01/13/20 10:34 a Patient Name: JAMES STAPLETON Page [phone] at 0858 All edits/amendments must be made on the electronic document DICTATION DATE: 01/15/2057 STEEL BUFFER: [place] 01/15/20 0857 RPT#: [id number] DC DATE:01/13/20 STATUS: DIS IN [facility] [address] [place] [address] END OF REPORT
== END 2020-01-13 15:45 | disposition home or self-care (01) | DRG 638 ==
LOC: D.ER 15:01 → D.ICU 16:55 → D.CVICU 16:55 → D.MS 16:55 → D.ICU 20:26 → D.MS 01-09 18:34
PROVIDERS: Emergency Medicine; Family Medicine; ADMIT Family Medicine; ATTEND Family Medicine
DX: E10.10 Type 1 diabetes mellitus with ketoacidosis without coma (principal); E87.2 Acidosis; H54.8 Legal blindness, as defined in USA; F32.9 Major depressive disorder, single episode, unspecified; N18.9 Chronic kidney disease, unspecified; Z79.4 Long term (current) use of insulin; Z96.41 Presence of insulin pump (external) (internal)

== ENCOUNTER 2020-11-07 02:30 | Inpatient (IN) | payer MEDICAID ==
[2020-11-07] VITALS (77 sets, daily range): BP systolic 59–163; BP diastolic 25–80
[~2020-11-07] VITALS: Ht 162.6 cm; Wt 80.1 kg
[~2020-11-07 02:30] MED LIST changes: +COLACE100 MG PO
--- NOTE | 2020-11-07 02:35 | NUR ---
PT PRESENTS TO ED VIA EMS ALTERED, GLUCOSE READING HI. NO IV ACCESS AT THIS TIME. PT IS COMBATIVE. IV ATTEMPTS UNSUCCESSFUL.
--- NOTE | 2020-11-07 03:25 | NUR ---
EDP AT BEDSIDE PLACED IO TO LEFT SHOULDER, HOWEVER PT IS FLAILING BODY PARTS AROUND BED. IO TO LEFT SHOULDER NO LONGER GOOD, D/C'D AT THIS TIME.
--- NOTE | 2020-11-07 03:50 | NUR ---
AAFTER MULTIPLE FAILED ATTEMPTS AT STARTING PERIPHERAL IV ON PT, EDP STARTED IO RIGHT TIBIA.
--- NOTE | 2020-11-07 04:00 | NUR ---
PT NOTED TO BE FLAILING AROUND IN BED, NOT OBEYING VERBAL COMMANDS. SHE IS ALTERED, YELLING FOR "MOM GET OFF THE HATFIELD" PT PLACED IN RESTRAINTS PER EDP VERBAL AND WRITTEN ORDER FOR PROTECTION OF LINES.
--- NOTE | 2020-11-07 04:12 | NUR ---
AFTER MULTIPLE FAILED ATTEMPTS AT STARTING PERIPHERAL IV ON PT, EDP STARTED IO RIGHT TIBIA.
[2020-11-07 04:25] LABS: ALBUMIN 3.6 g/dL (3.4-5.0); BILIRUBIN - TOTAL 0.42 mg/dL (0.2-1.3); CALCIUM 8.2 mg/dL (8.5-10.1); CREATININE - SERUM 3.4 mg/dL (0.6-1.3)
[2020-11-07 04:27] LABS: BILIRUBIN NEGATIVE (NEGATIVE); KETONE MODERATE mg/dL (NEGATIVE); NITRITE NEGATIVE (NEGATIVE); UROBILINOGEN NORMAL mg/dL (< 2)
[2020-11-07 04:28] LABS: HEMOGLOBIN 9.5 g/dL (12-16); LYMPHOCYTES 9.3 % (15-50); MCH 24.9 pg (26.0-34.0); MCHC 27.9 g/dL (31.0-37.0); NEUTROPHILS 89.1 % (40-80); RBC 3.82 10x6/uL (4.00-5.40); RDW 16.7 % (11.5-14.5); WBC 16.5 10x3/uL (4.8-10.8)
[2020-11-07 04:29] LABS: PLATELET COUNT 308 10x3/uL (130-400)
[2020-11-07 04:31] LABS: ANION GAP 43.1 mmol/L (8-16); CARBON DIOXIDE 4.5 mmol/L (21.0-32.0); POTASSIUM - SERUM 6.6 mmol/L (3.5-5.1)
--- NOTE | 2020-11-07 05:00 | NUR ---
EDP STARTED IO TO LEFT TIBIA AT THIS TIME.
--- NOTE | 2020-11-07 05:09 | NUR ---
EDP AND RESPIRATORY THERAPY AT BEDSIDE FOR INTUBATION AT THIS TIME. EDP USED 7.5 ETT, SECURED 24 @ LIP BY RESPIRATORY THERAPY AND EDP.
--- NOTE | 2020-11-07 05:30 | NUR ---
ASSISTED EDP WITH CENTRAL LINE PLACEMENT AT THIS TIME.
--- NOTE | 2020-11-07 07:10 | NUR ---
RECEIVED PATIENT INTUBATED ORALLY WITH MECHINAL VENTILATION IN PROGRESS. VENT SETTINGS FIO2-70%, AC RATE 18, PEEP-5, TV-450. SPO2 100%. NG TO RIGHT NARE, LIS DRAINING DARK FLUID. RIGHT IJ TLC INTACT. ALSO HAS BILATERIA TIBIAL IO WITH NS INFUSING BY GRAVITY. CURRENT IV INFUSIONS LEVOPHED AT 20MCG/MIN AND PROPOFOL AT MAX DOSE OF 75MC/KG/HR. BILATERAL WRIST AND ANKLE HOLDERS ON. ANKLE HOLDERS REMOVED. PATIENT HAS AGITATED MOVEMENT OF ARMS AND LEGS DESPITE MAX PROPOFOL. TAILOR GARMENT FITTER SHOWS SINUS TACHYCARDIA. BP IS 150/71 MAP 94. LEVOPHED DECREASED BY 1 MCG/MIN INCREMENTS TO MAINTAIN SBP OF 90/MAP >60.
[2020-11-07 07:19] LABS: CALCIUM 7.3 mg/dL (8.5-10.1); CREATININE - SERUM 3.2 mg/dL (0.6-1.3)
--- NOTE | 2020-11-07 07:25 | NUR ---
POC GLUCOSE READS "HI". GLUCOSE AT 0655 = 1099.
[2020-11-07 07:32] LABS: ANION GAP 37.8 mmol/L (8-16); POTASSIUM - SERUM 4.4 mmol/L (3.5-5.1)
[2020-11-07 07:34] LABS: CARBON DIOXIDE 7.6 mmol/L (21.0-32.0)
--- NOTE | 2020-11-07 07:40 | NUR ---
ABGS DONE. PH 7.2, HCO3 24, PO2 292. FIO2 DECREASED TO 50% PER RT. BLADDER SCAN PERFORMED TO ASSESS FOR DISTENSION CAUSING AGITATION. VOLUME = 367.
--- NOTE | 2020-11-07 07:45 | NUR ---
DR. ARREOLA NOTIFIED OF ONGOIN AGITATION DESPITE MAX PROPOFOL. CONSULT FOR DR. HO OBTAINED. DR. HO PAGED AND INFORMED OF CONSULT AND HISTORY. ORDER RECEIVIED FOR FENTANYL SKI PATROLLER AT NON-TITRATING RATE OF 25MCG/HR.
--- NOTE | 2020-11-07 08:29 | NUR ---
FENTANYL MANAGER INTEL AT 25MCG/HR INITIATED.
--- NOTE | 2020-11-07 08:45 | NUR ---
BP DECREASED TO 88/38 FOLLOWING INITIATION OF FENTANYL CHICKEN VACCINATOR. LEVOPHED TITRATED UP BY 1 MCG/MIN INCREMENTS.
--- NOTE | 2020-11-07 08:50 | NUR ---
REPORT CALLED TO ANUM PATEL.
--- NOTE | 2020-11-07 09:30 | NUR ---
TRANSPORTED TO ICU VIA BED WITH RT ASSISTANCE. IVS INFUSING TO RIJ TLC USING COMPATIBILITY CHART. BICARB DRIP AND VANCOMYCIN TO DISTAL PORT, PROPOFOL AT 75MCG/KG/MIN, FENTANYL CLINICAL INFORMATICS EDUCATOR AT 25MCG/HR AND INSULIN DRIP AT 31U/HR TO MEDIAL PORT, LEVOPHED AT 18MCG/MIN TO PROXIMAL PORT.
[2020-11-07 10:28] LABS: CALCIUM 7.3 mg/dL (8.5-10.1); CREATININE - SERUM 3.4 mg/dL (0.6-1.3)
[2020-11-07 10:36] LABS: ANION GAP 34.3 mmol/L (8-16); POTASSIUM - SERUM 3.3 mmol/L (3.5-5.1)
--- NOTE | 2020-11-07 12:00 | NUR ---
DR JUAREZ CONSULTED AND ROUNDED ON PT. DR JUAREZ ORDERED PT TO HAVE FLORES RELATED TO PT WITHOUT OUTPUT SINCE ADMISSION TO ICU, BLADDER DISTENDED, AND DR JUAREZ ALSO WANTS ACURATE I&O UNTIL PT IS STABLE. FLORES PLACED WITH 1100 IMMEDIATE OUTPUT OF CLEAR YELLOW URINE.
[2020-11-07 15:02] LABS: ANION GAP 26.5 mmol/L (8-16); CALCIUM 7.3 mg/dL (8.5-10.1); CREATININE - SERUM 2.8 mg/dL (0.6-1.3); POTASSIUM - SERUM 3.1 mmol/L (3.5-5.1)
[2020-11-07 15:06] LABS: CARBON DIOXIDE 14.6 mmol/L (21.0-32.0)
[2020-11-07 15:51] LABS: BILIRUBIN NEGATIVE (NEGATIVE); KETONE MODERATE mg/dL (NEGATIVE); NITRITE NEGATIVE (NEGATIVE); UROBILINOGEN NORMAL mg/dL (< 2); WHITE CELLS - URINE 0-5 HPF (0-4)
[2020-11-07 15:52] LABS: BACTERIA FEW HPF (NONE SEEN); SQUAMOUS EPITHELIAL 0-5 HPF (0-4)
[2020-11-07 16:01] LABS: UDS - AMPHET NEGATIVE QUAL (NEGATIVE); UDS - BARB NEGATIVE QUAL (NEGATIVE); UDS - BENZO NEGATIVE QUAL (NEGATIVE); UDS - COCAINE NEGATIVE QUAL (NEGATIVE); UDS - OPIATE POSITIVE QUAL (NEGATIVE); UDS - PCP NEGATIVE QUAL (NEGATIVE); UDS - THC NEGATIVE QUAL (NEGATIVE)
[2020-11-07 19:55] LABS: CALCIUM 7.5 mg/dL (8.5-10.1); CREATININE - SERUM 2.4 mg/dL (0.6-1.3)
[2020-11-07 19:59] LABS: ANION GAP 13.4 mmol/L (8-16); CARBON DIOXIDE 24.5 mmol/L (21.0-32.0); POTASSIUM - SERUM 2.9 mmol/L (3.5-5.1)
--- NOTE | 2020-11-07 21:06 | NUR ---
LEVOPHED TURNED OFF. BLOOD PRESSURE REMAIN STABLE. PROPOFOL DRECREASED TO 25 MEQ. PATIENT CAN ANSWER YES ON NO QUESTIONS.
--- NOTE | 2020-11-07 22:30 | NUR ---
RESTARTED LEVOPHED. LAST BP 79/52.
--- NOTE | 2020-11-07 22:49 | NUR ---
RECEIVED CALLED FROM DR. HO. ORDERS GIVEN TO DECREASE BICARB DRIP.
[2020-11-07 23:47] LABS: ANION GAP 15.7 mmol/L (8-16); CALCIUM 7.4 mg/dL (8.5-10.1); CARBON DIOXIDE 23.5 mmol/L (21.0-32.0); CREATININE - SERUM 2.3 mg/dL (0.6-1.3); POTASSIUM - SERUM 3.2 mmol/L (3.5-5.1)
[2020-11-08] VITALS (51 sets, daily range): BP systolic 92–139; BP diastolic 51–78; Ht 162.6 cm; Wt 80.1 kg
[2020-11-08 03:53] LABS: ANION GAP 16.7 mmol/L (8-16); CALCIUM 7.3 mg/dL (8.5-10.1); CARBON DIOXIDE 23.8 mmol/L (21.0-32.0); CREATININE - SERUM 2.4 mg/dL (0.6-1.3); MAGNESIUM - SERUM 1.9 mg/dL (1.8-2.4); POTASSIUM - SERUM 3.5 mmol/L (3.5-5.1); VANCOMYCIN - RANDOM 12.2 ug/mL (10.0-20.0)
[2020-11-08 03:56] LABS: BASOPHILS 0.1 % (0-2); EOSINOPHILS 0 % (0-7); HEMATOCRIT 25.3 % (36.0-48.0); HEMOGLOBIN 8.5 g/dL (12-16); IMMATURE GRANULOCYTES 0.3 % (0-5); LYMPHOCYTE ABS# 2.06 10x3/uL (1.18-3.74); MCH 24.9 pg (26.0-34.0); MCHC 33.6 g/dL (31.0-37.0); MCV 74.2 fL (80.0-100.0); MEAN PLATELET VOLUME 10.6 fL (7.4-10.4); MONOCYTES 4.2 % (2-11); NEUTROPHILS 85.4 % (40-80); PLATELET COUNT 293 10x3/uL (130-400); RBC 3.41 10x6/uL (4.00-5.40); RDW 15.8 % (11.5-14.5); WBC 20.6 10x3/uL (4.8-10.8)
[2020-11-08 03:57] LABS: PHOSPHOROUS 1.3 mg/dL (2.5-4.9)
--- NOTE | 2020-11-08 06:55 | NUR ---
PAGED [facility] PROVIDER, REGARDING CRITICAL PHOS. AWAITING RETURN CALL.
--- NOTE | 2020-11-08 08:26 | NUR ---
PLACED PT ON PS TRIAL 05/06; pt tolerating well
[2020-11-08 10:41] LABS: ALBUMIN 2.8 g/dL (3.4-5.0); ANION GAP 13.4 mmol/L (8-16); BILIRUBIN - TOTAL 0.37 mg/dL (0.2-1.3); CALCIUM 7.5 mg/dL (8.5-10.1); CARBON DIOXIDE 25.9 mmol/L (21.0-32.0); CREATININE - SERUM 2.1 mg/dL (0.6-1.3); POTASSIUM - SERUM 3.3 mmol/L (3.5-5.1); PROTEIN - SERUM 5.8 g/dL (6.4-8.2)
--- NOTE | 2020-11-08 12:57 | NUR ---
PATIENT EXTUBATED AROUND 1220PM WITH NO PROBLEMS AND NG TAKEN OUT WELL PATIENT ON 2 LITERS CANNULA.
--- NOTE | 2020-11-08 14:07 | NUR ---
PLAN CHECKER NOTIFIED OF PHOS LEVEL AND PROTOCOL ORDERED TO START.
--- NOTE | 2020-11-08 20:02 | NUR ---
PERMISSION RECEIVED FROM PATIENT TO SPEAK TO MOTHER, JOCELYNE STAPLETON. UPDATE GIVEN REQUESTED, ALL QUESTIONS ANSWERED.
[2020-11-09] VITALS (22 sets, daily range): BP systolic 93–144; BP diastolic 56–113
[2020-11-09 04:55] LABS: CREATININE - SERUM 1.8 mg/dL (0.6-1.3); VANCOMYCIN - RANDOM 9.6 ug/mL (10.0-20.0)
[2020-11-09 05:45] LABS: BASOPHILS 0.2 % (0-2); EOSINOPHILS 0.2 % (0-7); HEMATOCRIT 26.5 % (36.0-48.0); HEMOGLOBIN 8.6 g/dL (12-16); IMMATURE GRANULOCYTES 0.2 % (0-5); LYMPHOCYTE ABS# 1.99 10x3/uL (1.18-3.74); LYMPHOCYTES 16.4 % (15-50); MCH 24.6 pg (26.0-34.0); MCHC 32.5 g/dL (31.0-37.0); MCV 75.9 fL (80.0-100.0); MEAN PLATELET VOLUME 11.6 fL (7.4-10.4); MONOCYTES 5.1 % (2-11); NEUTROPHIL ABS# 9.46 10x3/uL (1.56-6.13); NEUTROPHILS 77.9 % (40-80); PLATELET COUNT 273 10x3/uL (130-400); RBC 3.49 10x6/uL (4.00-5.40); RDW 16.4 % (11.5-14.5)
[2020-11-09 05:54] LABS: ALBUMIN 2.5 g/dL (3.4-5.0); ANION GAP 13.4 mmol/L (8-16); BILIRUBIN - TOTAL 0.54 mg/dL (0.2-1.3); CALCIUM 7.3 mg/dL (8.5-10.1); CARBON DIOXIDE 26.2 mmol/L (21.0-32.0); CREATININE - SERUM 1.8 mg/dL (0.6-1.3); PHOSPHOROUS 4.1 mg/dL (2.5-4.9); POTASSIUM - SERUM 3.6 mmol/L (3.5-5.1); PROTEIN - SERUM 5.4 g/dL (6.4-8.2); WBC 12.1 10x3/uL (4.8-10.8)
--- NOTE | 2020-11-09 07:30 | NUR ---
PT LAYING ON RIGHT SIDE. RR EVEN AND UNLABORED. ON 100% O2 ON 2L NC. NC REMOVED. STILL 100% O2 AND PT TOLERATING WELL. DENIES NEEDS OR PAIN AT THIS TIME. CARE OF PT ASSUMED. SEE FLOWSHEET FOR ASSESSMENT DETAILS.
[2020-11-09 16:14] LABS: ANION GAP 9.5 mmol/L (8-16); CALCIUM 8.2 mg/dL (8.5-10.1); CARBON DIOXIDE 26.3 mmol/L (21.0-32.0); CREATININE - SERUM 1.5 mg/dL (0.6-1.3); POTASSIUM - SERUM 3.8 mmol/L (3.5-5.1)
--- NOTE | 2020-11-09 18:13 | NUR ---
I have reviewed this patient and I concur with the Shift Assessment completed by the Licensed Practical Nurse today this shift.
[2020-11-10] VITALS (22 sets, daily range): BP systolic 91–156; BP diastolic 31–96
[2020-11-10 05:33] LABS: CREATININE - SERUM 1.2 mg/dL (0.6-1.3); VANCOMYCIN - RANDOM 31.8 ug/mL (10.0-20.0)
--- NOTE | 2020-11-10 08:10 | NUR ---
PULLED UP IN BED, SAT HER UP. SINCE SHE IS BLIND, TRIED TO FEED HER TO SEE IF THAT WOULD INCREASE HER PO INTAKE. SHE DRANK HER OJ. REALIZED SHE ALSO DOES NOT HAVE HER DENTURES IN. TRIED TO FEED HER EGGS, WHICH SHE SPIT OUT AND REPORTS, "I'M JUST NOT HUNGRY." ASKED HER IF SHE USUALLY EATS WELL AT HOME AND SHE SAYS, "YES." ASKED IF SHE HAS JUST HAD A POOR APPETITE SINCE SHE HAS BEEN HERE AND SHE SAYS, "YES."
[2020-11-10 11:56] LABS: BASOPHILS 0.2 % (0-2); HEMATOCRIT 26.1 % (36.0-48.0); HEMOGLOBIN 8.2 g/dL (12-16); IMMATURE GRANULOCYTES 0.1 % (0-5); LYMPHOCYTE ABS# 2.35 10x3/uL (1.18-3.74); LYMPHOCYTES 26.8 % (15-50); MCH 24.7 pg (26.0-34.0); MCHC 31.4 g/dL (31.0-37.0); MEAN PLATELET VOLUME 10.8 fL (7.4-10.4); MONOCYTES 6.4 % (2-11); NEUTROPHIL ABS# 5.47 10x3/uL (1.56-6.13); NEUTROPHILS 62.5 % (40-80); PLATELET COUNT 220 10x3/uL (130-400); RBC 3.32 10x6/uL (4.00-5.40); RDW 16.9 % (11.5-14.5)
[2020-11-10 11:58] LABS: MCV 78.6 fL (80.0-100.0); WBC 8.8 10x3/uL (4.8-10.8)
[2020-11-10 12:01] LABS: ANION GAP 10.9 mmol/L (8-16); CALCIUM 7.9 mg/dL (8.5-10.1); CARBON DIOXIDE 24.4 mmol/L (21.0-32.0); CREATININE - SERUM 1.2 mg/dL (0.6-1.3); POTASSIUM - SERUM 3.3 mmol/L (3.5-5.1)
--- NOTE | 2020-11-10 12:32 | NUR ---
ATTEMPTED TO FEED PT AFTER FSBS FOUND TO BE 55. SHE WAS ENJOYING A FEW BITES OF HER HAMBURGER, BUT THEN BECAME NAUSEOUS AND HAD EMESIS X 1. 25 CC OF D50 GIVEN TO [place] LOW SUGAR. DR. JUAREZ ROUNDS AND ORDERS TO D/C THE INSULIN GTT. SHE ALSO REPORTS SHE IS IN PAIN. HE NOTES THAT HER MENTATION IS MUCH IMPROVED TODAY, BUT DOES NOT WANT TO GIVE HER OPIATES FOR PAIN SO ORDERS FOR EXTRA STRENGTH TYLENOL.
--- NOTE | 2020-11-10 13:10 | NUR ---
DR. GEOR[place]IA TELLEZ. DISCUSSED DR. JUAREZ HAVING D/C'D INSULIN. NEW ORDERS RECEIVED.
--- NOTE | 2020-11-10 16:43 | NUR ---
BS 416. PAGED DR. HO. ORDERS RECEIVED. NO CHANGE TO SLIDING SCALE LEVEL AT THIS TIME. ALSO, GAVE BED BATH. THEN SHE C/O NAUSEA AND ZOFRAN IS GIVEN. SHE THEN HAD A LARGE INCONTINENT LOOSE BLACK STOOL. CLEANED.
[2020-11-11] VITALS (12 sets, daily range): BP systolic 106–151; BP diastolic 64–90
[2020-11-11 04:33] LABS: BASOPHILS 0.1 % (0-2); EOSINOPHILS 1.1 % (0-7); HEMATOCRIT 26.4 % (36.0-48.0); HEMOGLOBIN 8.4 g/dL (12-16); IMMATURE GRANULOCYTES 0.1 % (0-5); LYMPHOCYTE ABS# 1.62 10x3/uL (1.18-3.74); LYMPHOCYTES 23.1 % (15-50); MCH 24.8 pg (26.0-34.0); MCHC 31.8 g/dL (31.0-37.0); MCV 77.9 fL (80.0-100.0); MEAN PLATELET VOLUME 11.6 fL (7.4-10.4); NEUTROPHILS 68.6 % (40-80); PLATELET COUNT 234 10x3/uL (130-400); RBC 3.39 10x6/uL (4.00-5.40); RDW 16.4 % (11.5-14.5)
[2020-11-11 04:50] LABS: ANION GAP 15.6 mmol/L (8-16); CALCIUM 8.5 mg/dL (8.5-10.1); CARBON DIOXIDE 20.3 mmol/L (21.0-32.0); CREATININE - SERUM 1.4 mg/dL (0.6-1.3); MAGNESIUM - SERUM 1.6 mg/dL (1.8-2.4); POTASSIUM - SERUM 3.9 mmol/L (3.5-5.1); VANCOMYCIN - RANDOM 9.3 ug/mL (10.0-20.0)
[2020-11-11 04:51] LABS: PHOSPHOROUS 2.2 mg/dL (2.5-4.9)
--- NOTE | 2020-11-11 05:55 | NUR ---
Shift summary: Patient declines po intake. Lethargic, slow responses. Frequent reorientation and redirection needed. Restless, frequent movements in bed. Declines Tylenol for pain, states "I can't swallow it, I'm going to throw it up"; declines change to suppository form. Intermittent nausea controlled with prn Zofran. PO intake encouraged, plan of care discussed. See flowsheets for details.
--- NOTE | 2020-11-11 06:23 | NUR ---
Patient restless in bed, frequently entangled in bedside monitor wires. Refusing to reposition for accurate vitals for 0500 and 0600.
--- NOTE | 2020-11-11 09:00 | NUR ---
PT BS 261 TREATED WITH ORDERED SLIDING SCALE. PT COOPERATIVE WITH ASSESSMENT BUT REFUSED TO TAKE AUGMENTIN. PILL WAS CRUSHED AND PUT INTO APPLESAUCE AND PT REFUSED THE APPLESAUCE. PT IS NAKED IN THE BED AND REFUSING TO WEAR A GOWN. PT WEARING A BREIF AT THIS TIME. PT IJ IS INTACT WITH FLUIDS RUNNING ORDERED. PT REQUESTED ZOFRAN AND RN GAVE IT. PT DENIES PAIN AT THIS TIME.
--- NOTE | 2020-11-11 10:19 | NUR ---
Nutrition follow-up: Pt discussed during IDT team rounds Pt sleeping Diet order: consistent CHO PO intake poor due to continued nausea, vomiting Labs reviewed Wt: 176# Will continue to offer consistent CHO diet and honor food preferences within diet restrictions. Will also offer Glucerna Shake with meals RDN follow-up: 11/13/20
--- NOTE | 2020-11-11 11:10 | NUR ---
HERE AND ORDERS NOTED ANTIOBIOTIC ORDERED AND PT TO MOVE TO 2137.
--- NOTE | 2020-11-11 12:00 | NUR ---
RECEIVED PATIENT FROM ICU VIA BED AT THIS TIME. PATIENT ORIENTED TO ROOM/NURSING STAFF. NO DISTRESS. CALL LIGHT PLACED WITHIN REACH. POTASSIUM PHOSPHATE INFUSING PER EP.
--- NOTE | 2020-11-11 15:15 | NUR ---
SHOWER AND LINEN CHANGE COMPLETE AT THIS TIME. NO DISTRESS.
--- NOTE | 2020-11-11 16:00 | NUR ---
FSBS 261. 6 UNITS HUMALOG ADMINISTERED PER SLIDING SCALE. PATIENT FOUND TO BE CONSUMING MASHED POTATOES AND RICE FROM [place] THAT HER FAMILY BROUGHT HER IN AND THEN REQUESTED A RECEES PEANUT BUTTER CUP FOR THE PATIENT. PATIENTS FAMILY IS NOT UNDERSTANDING OF DIABETES DISEASE PROCESS. EDUCATION PROVIDED. CALL LIGHT WITHIN REACH.
--- NOTE | 2020-11-11 16:55 | NUR ---
FSBS 261. 6 UNITS HUMALOG ADMINISTERED PER SLIDING SCALE.
--- NOTE | 2020-11-11 17:29 | NUR ---
PATIENT CONSTANTLY TOSSING AND TURNING IN BED. EASILY REDIRECTED, REDIRECTION LAST ABOUT ABOUT 5 MINUTES. PATIENTS MOTHER AT BEDSIDE, DOES NOT ASSIST WITH REDIRECTING PATIENT. CALL LIGHT WITHIN REACH.
--- NOTE | 2020-11-11 18:20 | NUR ---
RECIEVED PATIENT VIA WHEELCHAIR FROM ICU AND ADMIITED TO ROOM 2136. PATIENT ALERT/ORIENTED, TRANSFERS EASILY. SITTING IN CHAIR AT BEDSIDE WITH PM MEAL. CALL LIGHT WITHIN REACH. NO DISTRESS. DENIES NEEDS.
[2020-11-12] VITALS (14 sets, daily range): BP systolic 117–171; BP diastolic 57–99
[2020-11-12 05:54] LABS: BASOPHILS 0.3 % (0-2); EOSINOPHILS 1.8 % (0-7); HEMATOCRIT 24.4 % (36.0-48.0); HEMOGLOBIN 7.7 g/dL (12-16); IMMATURE GRANULOCYTES 0.1 % (0-5); LYMPHOCYTE ABS# 1.65 10x3/uL (1.18-3.74); LYMPHOCYTES 24.4 % (15-50); MCH 24.6 pg (26.0-34.0); MCHC 31.6 g/dL (31.0-37.0); MEAN PLATELET VOLUME 11.5 fL (7.4-10.4); NEUTROPHIL ABS# 4.49 10x3/uL (1.56-6.13); NEUTROPHILS 66.4 % (40-80); PLATELET COUNT 265 10x3/uL (130-400); RBC 3.13 10x6/uL (4.00-5.40); RDW 16.3 % (11.5-14.5); WBC 6.8 10x3/uL (4.8-10.8)
[2020-11-12 06:24] LABS: ANION GAP 22.7 mmol/L (8-16); CALCIUM 8.4 mg/dL (8.5-10.1); CARBON DIOXIDE 18.2 mmol/L (21.0-32.0); CREATININE - SERUM 1.2 mg/dL (0.6-1.3); POTASSIUM - SERUM 3.9 mmol/L (3.5-5.1); VANCOMYCIN - RANDOM 2.8 ug/mL (10.0-20.0)
[2020-11-12 06:25] LABS: PHOSPHOROUS 3.1 mg/dL (2.5-4.9)
--- NOTE | 2020-11-12 12:18 | NUR ---
RECEIVED TO ICU FROM [facility] 2. PUT TO BED SAFELY, REPORT RECEIVED FROM SYDNEE HAWKINS RN. INSULIN GTT STARTED.
--- NOTE | 2020-11-12 13:40 | NUR ---
NOTIFIED OF PT'S TRANSFER BACK TO ICU AND RATIONALE.
[2020-11-12 15:42] LABS: ALBUMIN 2.9 g/dL (3.4-5.0); ANION GAP 15.2 mmol/L (8-16); BILIRUBIN - TOTAL 0.38 mg/dL (0.2-1.3); CALCIUM 8.5 mg/dL (8.5-10.1); CREATININE - SERUM 1.2 mg/dL (0.6-1.3); POTASSIUM - SERUM 3.4 mmol/L (3.5-5.1); PROTEIN - SERUM 6.5 g/dL (6.4-8.2)
[2020-11-12 15:44] LABS: ALBUMIN 2.9 g/dL (3.4-5.0); BILIRUBIN - TOTAL 0.37 mg/dL (0.2-1.3); CALCIUM 8.4 mg/dL (8.5-10.1); CREATININE - SERUM 1.2 mg/dL (0.6-1.3); PROTEIN - SERUM 6.5 g/dL (6.4-8.2)
[2020-11-12 15:54] LABS: CARBON DIOXIDE 26.3 mmol/L (21.0-32.0); POTASSIUM - SERUM 3.3 mmol/L (3.5-5.1)
[2020-11-12 15:55] LABS: CARBON DIOXIDE 25.2 mmol/L (21.0-32.0)
--- NOTE | 2020-11-12 16:41 | NUR ---
NOTIFIED DR. TEMPLETON RECENTLY LOW FSBS AND INSULIN GTT HAS BEEN STOPPED. ORDERS RECEIVED.
[2020-11-13] VITALS (8 sets, daily range): BP systolic 98–148; BP diastolic 56–79
[2020-11-13 03:40] LABS: BASOPHILS 0.1 % (0-2); EOSINOPHILS 1.4 % (0-7); HEMATOCRIT 23.6 % (36.0-48.0); IMMATURE GRANULOCYTES 0.1 % (0-5); LYMPHOCYTE ABS# 1.88 10x3/uL (1.18-3.74); LYMPHOCYTES 25.6 % (15-50); MCH 24.4 pg (26.0-34.0); MCHC 31.8 g/dL (31.0-37.0); MCV 76.6 fL (80.0-100.0); MEAN PLATELET VOLUME 11.2 fL (7.4-10.4); MONOCYTES 13.1 % (2-11); NEUTROPHIL ABS# 4.39 10x3/uL (1.56-6.13); NEUTROPHILS 59.7 % (40-80); PLATELET COUNT 263 10x3/uL (130-400); RBC 3.08 10x6/uL (4.00-5.40); WBC 7.4 10x3/uL (4.8-10.8)
[2020-11-13 03:45] LABS: HEMOGLOBIN 7.5 g/dL (12-16)
[2020-11-13 04:12] LABS: ALBUMIN 2.8 g/dL (3.4-5.0); ANION GAP 20.3 mmol/L (8-16); BILIRUBIN - TOTAL 0.53 mg/dL (0.2-1.3); CALCIUM 8.5 mg/dL (8.5-10.1); CARBON DIOXIDE 21.2 mmol/L (21.0-32.0); CREATININE - SERUM 1.2 mg/dL (0.6-1.3); MAGNESIUM - SERUM 1.7 mg/dL (1.8-2.4); PHOSPHOROUS 3.4 mg/dL (2.5-4.9); POTASSIUM - SERUM 3.5 mmol/L (3.5-5.1); PROTEIN - SERUM 6.2 g/dL (6.4-8.2); VANCOMYCIN - RANDOM 1.3 ug/mL (10.0-20.0)
--- NOTE | 2020-11-13 07:30 | NUR ---
ENCOURAGED DIET, BUT REFUSES BREAKFAST.
--- NOTE | 2020-11-13 09:15 | NUR ---
DR. RENAN TELLEZ. ORDERS RECEIVED.
--- NOTE | 2020-11-13 12:18 | NUR ---
CVL DRSG CHANGED USING STERILE TECHNIQUE. NO COMPLAINTS. HAS EATEN 50% OF HER LUNCH.
--- NOTE | 2020-11-13 12:34 | NUR ---
Nutrition reassessment: Pt back in ICU due to continued DKA Labs reviewed; A.30; mean glucose: 252 Wt: 176# Diet order: consistent CHO Per nursing, pt refusing to eat Admit wt on 11/08/20 was 140#->pts wt today 177# Estimated nutritional needs based on 60.9 [id number] kcal (25-30 AdjBW), 60-75 g protein (1.0-1.2 gn/kg AdjBW) [id number] ml fluid or per MD Nutrition diagnosis: Inadequate oral intake R/T pt reports no appetite and not feeling well AEB observed refusal of meals. Nutrition goals: - PO intake will increase to =/> 75% of meals, snacks or nutrition support will be considered - Meet est fluid needs without fluid overload - Stable dry wt +/-3# Interventions: Will continue to provide food choices and honor food preferences within diet restrictions. Will offer Glucerna Shake with meals. RDN will follow-up: 11/15/20
--- NOTE | 2020-11-13 12:45 | NUR ---
LEFT SECURE MESSAGE W/ MAEGAN DAVIS, TO OBTAIN MRI RESULTS FROM OPEN MRI ON CENTRAL PER DR. TEMPLETON PT EXPLAINS SHE RECENTLY HAD MRI TO HER SHOULDER S/P FALL IN SHOWER A FEW WEEKS AGO.
--- NOTE | 2020-11-13 12:53 | NUR ---
DR. TEMPLETON ROUNDS, ORDERS RECEIVED. WILL TRANSFER OUT IN A FEW HOURS AFTER INSULIN JUST GIVEN IF SUGARS OK.
[2020-11-13 14:08] LABS: POTASSIUM - SERUM 3.4 mmol/L (3.5-5.1)
[2020-11-13 14:09] LABS: MAGNESIUM - SERUM 2.3 mg/dL (1.8-2.4)
--- NOTE | 2020-11-13 15:19 | NUR ---
FSBS REPORTED TO DR. TEMPLETON. AWAITING GAP FOR POSSIBLE TRANSFER.
[2020-11-13 15:24] LABS: BASOPHILS 0.1 % (0-2); EOSINOPHILS 1.5 % (0-7); HEMATOCRIT 22.7 % (36.0-48.0); IMMATURE GRANULOCYTES 0.1 % (0-5); LYMPHOCYTE ABS# 2.82 10x3/uL (1.18-3.74); LYMPHOCYTES 38.1 % (15-50); MCH 24.5 pg (26.0-34.0); MCHC 31.7 g/dL (31.0-37.0); MCV 77.2 fL (80.0-100.0); MEAN PLATELET VOLUME 11.4 fL (7.4-10.4); MONOCYTES 9.7 % (2-11); NEUTROPHIL ABS# 3.74 10x3/uL (1.56-6.13); NEUTROPHILS 50.5 % (40-80); PLATELET COUNT 300 10x3/uL (130-400); RBC 2.94 10x6/uL (4.00-5.40); RDW 16.1 % (11.5-14.5); RETIC 0.88 % (0.45-2.28); WBC 7.4 10x3/uL (4.8-10.8)
[2020-11-13 15:34] LABS: HEMOGLOBIN 7.2 g/dL (12-16)
--- NOTE | 2020-11-13 15:35 | NUR ---
CRITICAL HGB TOLD TO DR. TEMPLETON. SHE IS ON HER PERIOD. NO NEW ORDERS.
[2020-11-13 15:52] LABS: % SATURATION 20 % (15-55); IRON 52 ug/dl (35-150); TOTAL IRON BIND CAPACITY 254 ug/dl (260-445); UNSAT IRON BIND CAPACITY 202 ug/dl (150-375)
[2020-11-13 16:22] LABS: ALBUMIN 2.5 g/dL (3.4-5.0); ANION GAP 18.5 mmol/L (8-16); BILIRUBIN - TOTAL 0.34 mg/dL (0.2-1.3); CALCIUM 8.1 mg/dL (8.5-10.1); CARBON DIOXIDE 20.9 mmol/L (21.0-32.0); CREATININE - SERUM 1.4 mg/dL (0.6-1.3); POTASSIUM - SERUM 3.4 mmol/L (3.5-5.1); PROTEIN - SERUM 5.8 g/dL (6.4-8.2)
--- NOTE | 2020-11-13 16:45 | NUR ---
PER KHANH DEMARCO RN, PER DR. TEMPLETON, IF SHE EATS DINNER, SHE IS OK TO TRANSFER.
[2020-11-14] VITALS: BP 114/71
[2020-11-14 04:00] VITALS: BP 138/86
[2020-11-14 06:38] LABS: BASOPHILS 0.2 % (0-2); EOSINOPHILS 3.4 % (0-7); HEMATOCRIT 23.9 % (36.0-48.0); IMMATURE GRANULOCYTES 0.2 % (0-5); LYMPHOCYTE ABS# 2.96 10x3/uL (1.18-3.74); LYMPHOCYTES 52.6 % (15-50); MCHC 31.4 g/dL (31.0-37.0); MCV 76.6 fL (80.0-100.0); MEAN PLATELET VOLUME 11.2 fL (7.4-10.4); MONOCYTES 9.6 % (2-11); NEUTROPHIL ABS# 1.92 10x3/uL (1.56-6.13); PLATELET COUNT 312 10x3/uL (130-400); RBC 3.12 10x6/uL (4.00-5.40); RDW 16.2 % (11.5-14.5); WBC 5.6 10x3/uL (4.8-10.8)
[2020-11-14 07:00] LABS: ANION GAP 12.6 mmol/L (8-16); CALCIUM 8.5 mg/dL (8.5-10.1); CARBON DIOXIDE 24.9 mmol/L (21.0-32.0); CREATININE - SERUM 1.1 mg/dL (0.6-1.3); MAGNESIUM - SERUM 2.4 mg/dL (1.8-2.4); PHOSPHOROUS 3.4 mg/dL (2.5-4.9); POTASSIUM - SERUM 3.5 mmol/L (3.5-5.1); VANCOMYCIN - RANDOM 0.3 ug/mL (10.0-20.0)
[2020-11-14 07:15] LABS: HEMOGLOBIN 7.5 g/dL (12-16)
--- NOTE | 2020-11-14 08:00 | NUR ---
ASSESSMENT PER FLOW SHEET. PATIENT IS WITHOUT DISTRESS. DENIES NEEDS.CALL LIGHT IN REACH.
[2020-11-14 08:42] VITALS: BP 125/67
--- NOTE | 2020-11-14 11:20 | NUR ---
PATIENT 1ST UNIT OF BLOOD STARTED AT THIS TIME. VS STABLE. IV INTACT. NO COMPLAINTS OR SIGNS OF DISTRESS. FAMILY AT BEDSIDE. WILL CONTINUE TO MONITOR.
--- NOTE | 2020-11-14 11:35 | NUR ---
PATIENT VS STABLE. BLOOD INFUSING WITH NO PROBLEMS. IV INTACT. NO TRANSFUSIONS REACTIONS NOTED. FAMILY AT BEDSIDE. CALL LIGHT WITHIN REACH.
[2020-11-14 13:25] VITALS: BP 152/83
[2020-11-14 17:41] VITALS: BP 153/85
[2020-11-14 20:00] VITALS: BP 145/78
[2020-11-15] VITALS: BP 140/82
[2020-11-15 07:00] LABS: BASOPHILS 0.2 % (0-2); EOSINOPHILS 5.3 % (0-7); IMMATURE GRANULOCYTES 0.2 % (0-5); LYMPHOCYTE ABS# 2.09 10x3/uL (1.18-3.74); LYMPHOCYTES 39.9 % (15-50); MCH 24.9 pg (26.0-34.0); MCHC 32.2 g/dL (31.0-37.0); MCV 77.2 fL (80.0-100.0); MEAN PLATELET VOLUME 11.2 fL (7.4-10.4); MONOCYTES 10.7 % (2-11); NEUTROPHIL ABS# 2.29 10x3/uL (1.56-6.13); NEUTROPHILS 43.7 % (40-80); PLATELET COUNT 279 10x3/uL (130-400); RDW 15.9 % (11.5-14.5); WBC 5.2 10x3/uL (4.8-10.8)
[2020-11-15 07:05] LABS: HEMATOCRIT 29.2 % (36.0-48.0); HEMOGLOBIN 9.4 g/dL (12-16); RBC 3.78 10x6/uL (4.00-5.40)
[2020-11-15 07:13] LABS: ANION GAP 10.1 mmol/L (8-16); CALCIUM 7.8 mg/dL (8.5-10.1); CARBON DIOXIDE 26.3 mmol/L (21.0-32.0); MAGNESIUM - SERUM 1.8 mg/dL (1.8-2.4); PHOSPHOROUS 3.5 mg/dL (2.5-4.9); POTASSIUM - SERUM 3.4 mmol/L (3.5-5.1); VANCOMYCIN - RANDOM 0.5 ug/mL (10.0-20.0)
--- NOTE | 2020-11-15 07:30 | NUR ---
REC'D IN BED WITH HEAD COVER UP EASILY TO AROUSED WHEN NAME IS CALLED. RESP EVEN AND UNALBORED WITH NO DISTRESS NOTED. CAN EXPRESS NEEDS AND WANTS. C/O RIGHT SHOULDER PAIN. ASSESSMENT COMPLETED. C/L IN REACH AT BEDSIDE.
--- NOTE | 2020-11-15 08:05 | NUR ---
WAS MEDICATED WITH [facility] AT THIS TIME FOR C/O SHOULDER PAIN . C/L IN REACH AT BEDSIDE.
[2020-11-15 08:46] VITALS: BP 148/90
[2020-11-15] MEDS ORDERED: Saline Mist NASAL SP NASAL (09:59)
[2020-11-15] MEDS ORDERED: FLUTICASONE PRO16 GM NASAL (09:59)
[2020-11-15] MEDS ORDERED: TIMOPTIC 0.5 % O5 ML OP (09:59)
[2020-11-15] MEDS ORDERED: AUGMENTIN 875-11 TAB PO (09:59)
[2020-11-15] MEDS ORDERED: FLORAJEN3 CAPS460 MG PO (10:00)
--- NOTE | 2020-11-15 13:33 | MORECARE ---
CASE MANAGEMENT DISCHARGE SUMMARY PATIENT: JAMES STAPLETON UNIT: [id number] ADM DATE: 11/07/20 AGE: 40 : 82 SEX: F ROOM/BED: D.2207 AUTHOR: GUILLE,DOC PHYSICIAN: REFERRING PHYSICIAN: ARIE ARREOLA MD DATE OF SERVICE: 11/15/20 Case Management Discharge Planning Summary DCP REVIEW SUMMARY ANTICIPATED D/C DATE: EXPECTED LOS : CASE STATUS: DCP Initiated INITIAL REVIEW: 11/07/2020 INITIAL REVIEWER: Ritu Shepherd FINAL DISCHARGE DISPOSITION: 06 : Discharged/Trans to Home Under Care of Organized Home Health Service in Anticipation of Skilled Care FINAL REVIEWER: FINAL REVIEW DATE: DCP Focus Questions & Answers DCP Screen QUESTION: ANSWER High Risk Factors: : Hosp related to CHF, COPD, DM, End Stage Ds, CVA, CA DCP Evaluation QUESTION: ANSWER Patient's ability to cope with chronic illness : d. No chronic illness Would patient like to participate in any Care Coordination programs (if applicable): : Not applicable Mental health screen: : No mental health history DCP Re-evaluation QUESTION: ANSWER Would patient like to participate in any Care Coordination programs (if applicable): : Not applicable PATIENT: JAMES STAPLETON ENCOUNTER: [id number] MEDICAL RECORD#: [id number] ADMISSION DATE: 11/07/2020 DISCHARGE DATE: ATTENDING MD: ARIE GAMEZ : AGE: 40 MARITAL STATUS: S DC PLAN ID: [id number] FACILITY: [facility] PRINTED ON: 11/15/20 13:33 CT All edits/amendments must be made on the electronic document DICTATION DATE: 11/15/20 133 EXECUTIVE PASTRY CHEF: DM 11/15/20 1333 RPT#: [id number] DC DATE: STATUS: ADM IN [facility] [address] [place] [address] END OF REPORT
--- NOTE | 2020-11-15 13:33 | NUR ---
DC HOME AT THIS [facility] WITH ALL PERSONAL BELONGING VOICE UNDRSTANDING OF DC ORDERS. STABLE CONDITION UPON DISCHARGE.
--- NOTE | 2020-11-15 13:59 | MORECARE ---
CASE MANAGEMENT DISCHARGE SUMMARY PATIENT: JAMES STAPLETON UNIT: [id number] ADM DATE: 11/07/20 AGE: 40 : 82 SEX: F ROOM/BED: D.2207 AUTHOR: PAPA HAN PHYSICIAN: REFERRING PHYSICIAN: ARIE ARREOLA MD DATE OF SERVICE: 11/15/20 Case Management Discharge Planning Summary DCP REVIEW SUMMARY ANTICIPATED D/C DATE: EXPECTED LOS : CASE STATUS: DCP Initiated INITIAL REVIEW: 11/07/2020 INITIAL REVIEWER: Ritu Shepherd FINAL DISCHARGE DISPOSITION: 06 : Discharged/Trans to Home Under Care of Organized Home Health Service in Anticipation of Skilled Care FINAL REVIEWER: FINAL REVIEW DATE: DCP Focus Questions & Answers DCP Screen QUESTION: ANSWER High Risk Factors: : Hosp related to CHF, COPD, DM, End Stage Ds, CVA, CA DCP Evaluation QUESTION: ANSWER Patient and/or caregiver agree upon recommended discharge plan? : Yes Patient's current cognitive status: : *Oriented to person, place, situation, time and present Patient's ability to cope with chronic illness : a. Adequate (0-3 ED visits in 6 mos., adequate financial resources, attends scheduled appts.) Family / Caregiver's ability to cope with chronic illness: : b. Minimal (occasionally not dependable to meet pt's. needs, can meet pt's. basic ADL's) Does the patient have the ability to pay for or attain post discharge needs / services? : Yes Functional screen assessment: : Basic needs can adequately be met by self Family / Caregiver's ability to cope with chronic illness: : a. Adequate (ability to meet patient's medical needs, ensures patient attends medical appts.) Physical Status: : Partial care dependence Physical Status: : Vision impaired Functional screen comments: : HELP WITH INSULIN Equipment needed for post hospitalization: : Shower Chair Is there a likelihood that the patient will require additional services to return to the preadmission environment? : No Living Arrangements: : Home Alone with Support Results of this evaluation have been discussed with: : Patient Patient with capacity for self-care or can be cared for in same environment as prior to hospitalization? : Yes Baseline cognitive status: : *Oriented to person, place, situation, time and present Living arrangements comments: : MOM LIVES IN DOWNSTAIRS APARTMENT BOYFRIEND LIVES IN THE SAME APARTMENT COMPLEX Medication Management: : Patient states the need for assistance with medication administration Planned post hospital services available for patient? : Yes Pharm[facility]): : [facility] PCP: [facility] S[facility]O [facility] [address] Planned post hospital services covered by insurance plan? : Yes Does Patient have transportation to get home and to follow-up medical appointments when discharged from the hospital? : Yes Would patient like to participate in any Care Coordination programs (if applicable): : Not applicable Does the patient have electricity at home? : Yes Does the patient have running water in their house? : Yes Equipment in use: : Cane - Single Leg Equipment in use: : Glucometer Other Equipment comments: : ORDRED A SHOWER CHAIR Equipment agency name and contact information: : [facility] Mental health screen: : No mental health history Psychosocial status: : Adult with physical limitations Abuse/Neglect: : None Resources / Services in place: : Home health Contact information for resources in use: : CURRENT WITH [facility] AND STATED THAT HER PCP HAS SET HER UP WITH [facility] ( IN THE PROCESS) DCP Re-evaluation QUESTION: ANSWER Would patient like to participate in any Care Coordination programs (if applicable): : Not applicable PATIENT: JAMES STAPLETON ENCOUNTER: [id number] MEDICAL RECORD#: [id number] ADMISSION DATE: 11/07/2020 DISCHARGE DATE: 11/15/2020 ATTENDING MD: ARIE GAMEZ : AGE: 40 MARITAL STATUS: S DC PLAN ID: [id number] FACILITY: [facility] PRINTED ON: 11/15/20 13:59 CT All edits/amendments must be made on the electronic document DICTATION DATE: 11/15/20 1359 ED TECH: [place] 11/15/20 1359 RPT#: [id number] DC DATE:11/15/20 STATUS: DIS IN [facility] [address] [place] [address] END OF REPORT
--- NOTE | 2020-11-15 14:12 | MORECARE ---
CASE MANAGEMENT DISCHARGE SUMMARY PATIENT: JAMES STAPLETON UNIT: [id number] ADM DATE: 11/07/20 AGE: 40 : 82 SEX: F ROOM/BED: D.2207 AUTHOR: PAPA HAN PHYSICIAN: REFERRING PHYSICIAN: ARIE ARREOLA MD DATE OF SERVICE: 11/15/20 Case Management Discharge Planning Summary COMMENTS ENTERED DATE: 11/15/20 13:48 CT COMMENT TYPE: Discharge Planning REVIEWER: Ritu Shepherd CM met with patient to complete initial dc planning assessment. CM educated patient on the CM role and verbal consent given by patient to complete assessment. Patient lives home where she states she is partially dependent with her care. She is blind so she needs help with her medications and other stuff at times. She states that she counts the clicks and her boyfriend also helps her with her insulin. Her glucometer talks to her and tells her the sugar reading. She stated that she lives in an upstairs apartment and her mom and boyfriend live in a downstairs apartment. They are there to help her with her insulin and her care if needed. At discharge patient plans to return home and feels this is a safe discharge. Her boyfriend Delon will be her lokie driver home. She has a cane and requested a shower chair. I ordered a shower chair from [email or web address] and they will deliver it to her home. She is current with [facility]. I will send clincials to them and let them know. Patient denied known discharge needs at this time. CM will continue to follow and will assist as needed with dc plans/needs. DCP REVIEW SUMMARY ANTICIPATED D/C DATE: EXPECTED LOS : CASE STATUS: DCP Initiated INITIAL REVIEW: 11/07/2020 INITIAL REVIEWER: Ritu Shepherd FINAL DISCHARGE DISPOSITION: 06 : Discharged/Trans to Home Under Care of Organized Home Health Service in Anticipation of Skilled Care FINAL REVIEWER: FINAL REVIEW DATE: DCP Focus Questions & Answers DCP Screen QUESTION: ANSWER High Risk Factors: : Hosp related to CHF, COPD, DM, End Stage Ds, CVA, CA DCP Evaluation QUESTION: ANSWER Patient and/or caregiver agree upon recommended discharge plan? : Yes Patient's current cognitive status: : *Oriented to person, place, situation, time and present Patient's ability to cope with chronic illness : a. Adequate (0-3 ED visits in 6 mos., adequate financial resources, attends scheduled appts.) Family / Caregiver's ability to cope with chronic illness: : b. Minimal (occasionally not dependable to meet pt's. needs, can meet pt's. basic ADL's) Does the patient have the ability to pay for or attain post discharge needs / services? : Yes Functional screen assessment: : Basic needs can adequately be met by self Family / Caregiver's ability to cope with chronic illness: : a. Adequate (ability to meet patient's medical needs, ensures patient attends medical appts.) Physical Status: : Partial care dependence Physical Status: : Vision impaired Functional screen comments: : HELP WITH INSULIN Equipment needed for post hospitalization: : Shower Chair Is there a likelihood that the patient will require additional services to return to the preadmission environment? : No Living Arrangements: : Home Alone with Support Results of this evaluation have been discussed with: : Patient Patient with capacity for self-care or can be cared for in same environment as prior to hospitalization? : Yes Baseline cognitive status: : *Oriented to person, place, situation, time and present Living arrangements comments: : MOM LIVES IN DOWNSTAIRS APARTMENT BOYFRIEND LIVES IN THE SAME APARTMENT COMPLEX Medication Management: : Patient states the need for assistance with medication administration Planned post hospital services available for patient? : Yes [facility] PCP: ASHOK SERRANO [address] Planned post hospital services covered by insurance plan? : Yes Does Patient have transportation to get home and to follow-up medical appointments when discharged from the hospital? : Yes Would patient like to participate in any Care Coordination programs (if applicable): : Not applicable Does the patient have electricity at home? : Yes Does the patient have running water in their house? : Yes Equipment in use: : Cane - Single Leg Equipment in use: : Glucometer Other Equipment comments: : ELISA A SHOWER CHAIR Equipment agency name and contact information: : [facility] Mental health screen: : No mental health history Psychosocial status: : Adult with physical limitations Abuse/Neglect: : None Resources / Services in place: : Home health Contact information for resources in use: : CURRENT WITH [facility] [employer] AND STATED THAT HER PCP HAS SET HER UP WITH ALCON VALLES ( IN THE PROCESS) [facility] Re-evaluation QUESTION: ANSWER Would patient like to participate in any Care Coordination programs (if applicable): : Not applicable PATIENT: JAMES STAPLETON ENCOUNTER: [id number] MEDICAL RECORD#: [id number] ADMISSION DATE: 11/07/2020 DISCHARGE DATE: 11/15/2020 ATTENDING MD: ARIE GAMEZ : AGE: 40 MARITAL STATUS: S DC PLAN ID: [id number] FACILITY: [facility] PRINTED ON: 11/15/20 14:12 CT All edits/amendments must be made on the electronic document DICTATION DATE: 11/15/201411 LOCAL AREA NETWORK ADMINISTRATOR: EUGENE 11/15/201411 RPT#: [id number] DC DATE:11/15/20 STATUS: DIS IN [facility] [address] [place] [address] END OF REPORT
--- NOTE | 2020-11-17 13:23 | MORECARE ---
CASE MANAGEMENT DISCHARGE SUMMARY PATIENT: JAMES STAPLETON UNIT: [id number] ADM DATE: 11/07/20 AGE: 40 : 82 SEX: F ROOM/BED: D.2207 AUTHOR: PAPA HAN PHYSICIAN: REFERRING PHYSICIAN: ARIE ARREOLA MD DATE OF SERVICE: 11/17/20 Case Management Discharge Planning Summary COMMENTS ENTERED DATE: 11/15/20 13:48 CT COMMENT TYPE: Discharge Planning REVIEWER: Ritu Shepherd CM met with patient to complete initial dc planning assessment. CM educated patient on the CM role and verbal consent given by patient to complete assessment. Patient lives home where she states she is partially dependent with her care. She is blind so she needs help with her medications and other stuff at times. She states that she counts the clicks and her boyfriend also helps her with her insulin. Her glucometer talks to her and tells her the sugar reading. She stated that she lives in an upstairs apartment and her mom and boyfriend live in a downstairs apartment. They are there to help her with her insulin and her care if needed. At discharge patient plans to return home and feels this is a safe discharge. Her boyfriend Delon will be her local [place] truck driver home. She has a cane and requested a shower chair. I ordered a shower chair from [employer] and they will deliver it to her home. She is current with [facility] [email or web address]. I will send clincials to them and let them know. Patient denied known discharge needs at this time. CM will continue to follow and will assist as needed with dc plans/needs. DCP REVIEW SUMMARY ANTICIPATED D/C DATE: EXPECTED LOS : CASE STATUS: DCP Initiated INITIAL REVIEW: 11/07/2020 INITIAL REVIEWER: Ritu Shepherd FINAL DISCHARGE DISPOSITION: 06 : Discharged/Trans to Home Under Care of Organized Home Health Service in Anticipation of Skilled Care FINAL REVIEWER: FINAL REVIEW DATE: DCP Focus Questions & Answers DCP Screen QUESTION: ANSWER High Risk Factors: : Hosp related to CHF, COPD, DM, End Stage Ds, CVA, CA DCP Evaluation QUESTION: ANSWER Patient's ability to cope with chronic illness : a. Adequate (0-3 ED visits in 6 mos., adequate financial resources, attends scheduled appts.) Patient's current cognitive status: : *Oriented to person, place, situation, time and present Family / Caregiver's ability to cope with chronic illness: : b. Minimal (occasionally not dependable to meet pt's. needs, can meet pt's. basic ADL's) Patient and/or caregiver agree upon recommended discharge plan? : Yes Physical Status: : Partial care dependence Physical Status: : Vision impaired Family / Caregiver's ability to cope with chronic illness: : a. Adequate (ability to meet patient's medical needs, ensures patient attends medical appts.) Functional screen assessment: : Basic needs can adequately be met by self Does the patient have the ability to pay for or attain post discharge needs / services? : Yes Living Arrangements: : Home Alone with Support Functional screen comments: : HELP WITH INSULIN Is there a likelihood that the patient will require additional services to return to the preadmission environment? : No Equipment needed for post hospitalization: : Shower Chair Baseline cognitive status: : *Oriented to person, place, situation, time and present Living arrangements comments: : MOM LIVES IN DOWNSTAIRS APARTMENT BOYFRIEND LIVES IN THE SAME APARTMENT COMPLEX Patient with capacity for self-care or can be cared for in same environment as prior to hospitalization? : Yes Results of this evaluation have been discussed with: : Patient Medication Management: : Patient states the need for assistance with medication administration [facility]): : [facility] PCP: ASHOK MIRANDA Planned post hospital services available for patient? : Yes Does Patient have transportation to get home and to follow-up medical appointments when discharged from the hospital? : Yes Planned post hospital services covered by insurance plan? : Yes Would patient like to participate in any Care Coordination programs (if applicable): : Not applicable Does the patient have electricity at home? : Yes Does the patient have running water in their house? : Yes Equipment in use: : Cane - Single Leg Equipment in use: : Glucometer Other Equipment comments: : ELISA Muñoz SHOWER CHAIR Equipment agency name and contact information: : [place] Mental health screen: : No mental health history Psychosocial status: : Adult with physical limitations Abuse/Neglect: : None Resources / Services in place: : Home health Contact information for resources in use: : CURRENT WITH [facility] [employer] AND STATED THAT HER PCP HAS SET HER UP WITH ALCON VALLES ( IN THE PROCESS) [facility] Re-evaluation QUESTION: ANSWER Would patient like to participate in any Care Coordination programs (if applicable): : Not applicable PATIENT: JAMES STAPLETON ENCOUNTER: [id number] MEDICAL RECORD#: [id number] ADMISSION DATE: 11/07/2020 DISCHARGE DATE: 11/15/2020 ATTENDING MD: ARIE GAMEZ : AGE: 40 MARITAL STATUS: S DC PLAN ID: [id number] FACILITY: [facility] PRINTED ON: 11/17/20 13:23 CT All edits/amendments must be made on the electronic document DICTATION DATE: 11/17/20 132 PAVER OPERATOR: EUGENE 11/17/20 1323 RPT#: [id number] DC DATE:11/15/20 STATUS: DIS IN [facility] [address] [place] [address] END OF REPORT
--- NOTE | 2020-11-18 11:19 | MORECARE ---
CASE MANAGEMENT DISCHARGE SUMMARY PATIENT: JAMES STAPLETON UNIT: [id number] ADM DATE: 11/07/20 AGE: 40 : 82 SEX: F ROOM/BED: D.2207 AUTHOR: GUILLEDOC PHYSICIAN: REFERRING PHYSICIAN: ARIE ARREOLA MD DATE OF SERVICE: 11/18/20 Case Management Discharge Planning Summary COMMENTS ENTERED DATE: 11/15/20 13:48 CT COMMENT TYPE: Discharge Planning REVIEWER: Ritu Shepherd CM met with patient to complete initial dc planning assessment. CM educated patient on the CM role and verbal consent given by patient to complete assessment. Patient lives home where she states she is partially dependent with her care. She is blind so she needs help with her medications and other stuff at times. She states that she counts the clicks and her boyfriend also helps her with her insulin. Her glucometer talks to her and tells her the sugar reading. She stated that she lives in an upstairs apartment and her mom and boyfriend live in a downstairs apartment. They are there to help her with her insulin and her care if needed. At discharge patient plans to return home and feels this is a safe discharge. Her boyfriend Delon will be her electric mule driver home. She has a cane and requested a shower chair. I ordered a shower chair from [employer] and they will deliver it to her home. She is current with [facility] [employer]. I will send clincials to them and let them know. Patient denied known discharge needs at this time. CM will continue to follow and will assist as needed with dc plans/needs. DCP REVIEW SUMMARY ANTICIPATED D/C DATE: EXPECTED LOS : CASE STATUS: DCP Initiated INITIAL REVIEW: 11/07/2020 INITIAL REVIEWER: Ritu Shepherd FINAL DISCHARGE DISPOSITION: 06 : Discharged/Trans to Home Under Care of Organized Home Health Service in Anticipation of Skilled Care FINAL REVIEWER: FINAL REVIEW DATE: DCP Focus Questions & Answers DCP Screen QUESTION: ANSWER High Risk Factors: : Hosp related to CHF, COPD, DM, End Stage Ds, CVA, CA DCP Evaluation QUESTION: ANSWER Patient and/or caregiver agree upon recommended discharge plan? : Yes Family / Caregiver's ability to cope with chronic illness: : b. Minimal (occasionally not dependable to meet pt's. needs, can meet pt's. basic ADL's) Patient's current cognitive status: : *Oriented to person, place, situation, time and present Patient's ability to cope with chronic illness : a. Adequate (0-3 ED visits in 6 mos., adequate financial resources, attends scheduled appts.) Does the patient have the ability to pay for or attain post discharge needs / services? : Yes Functional screen assessment: : Basic needs can adequately be met by self Family / Caregiver's ability to cope with chronic illness: : a. Adequate (ability to meet patient's medical needs, ensures patient attends medical appts.) Physical Status: : Vision impaired Physical Status: : Partial care dependence Equipment needed for post hospitalization: : Shower Chair Is there a likelihood that the patient will require additional services to return to the preadmission environment? : No Functional screen comments: : HELP WITH INSULIN Living Arrangements: : Home Alone with Support Results of this evaluation have been discussed with: : Patient Patient with capacity for self-care or can be cared for in same environment as prior to hospitalization? : Yes Living arrangements comments: : MOM LIVES IN DOWNSTAIRS APARTMENT BOYFRIEND LIVES IN THE SAME APARTMENT COMPLEX Baseline cognitive status: : *Oriented to person, place, situation, time and present Medication Management: : Patient states the need for assistance with medication administration Planned post hospital services available for patient? : Yes [facility]): : [facility] PCP: ASHOK REYEZ [place] Planned post hospital services covered by insurance plan? : Yes Does Patient have transportation to get home and to follow-up medical appointments when discharged from the hospital? : Yes Would patient like to participate in any Care Coordination programs (if applicable): : Not applicable Does the patient have electricity at home? : Yes Does the patient have running water in their house? : Yes Equipment in use: : Glucometer Equipment in use: : Cane - Single Leg Other Equipment comments: : [employer] A SHOWER CHAIR Equipment agency name and contact information: : [facility] Mental health screen: : No mental health history Psychosocial status: : Adult with physical limitations Abuse/Neglect: : None Resources / Services in place: : Home health Contact information for resources in use: : CURRENT WITH [facility] [employer] AND STATED THAT HER PCP HAS SET HER UP WITH ALCON VALLES ( IN THE PROCESS) [facility] Re-evaluation QUESTION: ANSWER Would patient like to participate in any Care Coordination programs (if applicable): : Not applicable PATIENT: JAMES STAPLETON ENCOUNTER: [id number] MEDICAL RECORD#: [id number] ADMISSION DATE: 11/07/2020 DISCHARGE DATE: 11/15/2020 ATTENDING MD: ARIE GAMEZ : AGE: 40 MARITAL STATUS: S DC PLAN ID: [id number] FACILITY: [facility] PRINTED ON: 11/18/20 11:19 CT All edits/amendments must be made on the electronic document DICTATION DATE: 11/18/20 111 TRAVEL SALES CONSULTANT: EUGENE 11/18/20 111 RPT#: [id number] DC DATE:11/15/20 STATUS: DIS IN [facility] [address] [place] [address] END OF REPORT
== END 2020-11-15 13:36 | disposition home health service (06) | DRG 637 ==
LOC: D.ER 02:30 → D.ICU 06:33 → D.M2 06:33 → D.ICU 11-12 11:56 → D.MS 11-14 00:30
PROVIDERS: Emergency Medicine; Family Medicine; Internal Medicine Nephrology; Internal Medicine Pulmonary Disease; ADMIT Family Medicine; ATTEND Family Medicine
PROC: 5A1945Z Respiratory Ventilation, 24-96 Consecutive Hours (ICD-10-PCS; principal; 2020-11-07)
PROC: 0BH17EZ Insertion of Endotracheal Airway into Trachea, Via Natural or Artificial Opening (ICD-10-PCS; 2020-11-07)
PROC: 05HM33Z Insertion of Infusion Device into Right Internal Jugular Vein, Percutaneous Approach (ICD-10-PCS; 2020-11-07)
DX: E10.10 Type 1 diabetes mellitus with ketoacidosis without coma (principal); J96.00 Acute respiratory failure, unspecified whether with hypoxia or hypercapnia; G93.41 Metabolic encephalopathy; N17.9 Acute kidney failure, unspecified; R57.9 Shock, unspecified; E86.0 Dehydration; Z79.4 Long term (current) use of insulin; K31.84 Gastroparesis; E10.43 Type 1 diabetes mellitus with diabetic autonomic (poly)neuropathy; E10.319 Type 1 diabetes mellitus with unspecified diabetic retinopathy without macular edema